=== PATIENT | female | born 1995 ===

== ENCOUNTER 2017-01-18 16:18 | Emergency (ER) | payer OTHER ==
[2017-01-18 16:34] VITALS: BP 125/78
--- NOTE | 2017-01-18 17:04 | ED ---
Psychiatric Complaint - HPI Summary HPI Summary: 22F presents with ability to sleep. She has history of depression and states over the past week the thought have increased in. She denies any SI/HI. She denies any drug or ETOH use. She denies any history of self harm. She states she wants to mental health exam and some sleep. She takes prozac but keeps forgetting to take it. She has family history of depression. - History Of Current Complaint Chief Complaint: EDMentalHealth Time Seen by Provider: 01/18/17 16:36 PMH/Surg Hx/FS Hx/Imm Hx Endocrine/Hematology History: Denies: Hx Anticoagulant Therapy Cardiovascular History: Denies: Hx Hypertension Psychiatric History: Reports: Hx Depression Infectious Disease History: No Infectious Disease History: Denies: Traveled Outside the [place] in Last 30 Days - Family History Known Family History: Positive: Other - depression - Social History Alcohol Use: None Substance Use Type: Reports: None Smoking Status (MU): Never Smoked Tobacco Review of Systems Negative: Fever Negative: Chest Pain Negative: Shortness Of Breath Positive: Depressed, Other - tired All Other Systems Reviewed And Are Negative: Yes Physical Exam Triage Information Reviewed: Yes Vital Signs On Initial Exam: Initial Vitals Temp Pulse Resp BP Pulse Ox 98.0 F 69 16 125/78 98 01/18/17 16:28 01/18/17 16:28 01/18/17 16:28 01/18/17 16:28 01/18/17 16:28 Vital Signs Reviewed: Yes Appearance: Positive: Well-Appearing Skin: Positive: Warm, Dry Head/Face: Positive: Normal Head/Face Inspection Eyes: Positive: Normal, Conjunctiva Clear Respiratory/Lung Sounds: Positive: Clear to Auscultation, Breath Sounds Present Cardiovascular: Positive: Normal, RRR Abdomen Description: Positive: Nontender, Soft Bowel Sounds: Positive: Present Musculoskeletal: Positive: Normal Neurological: Positive: Normal Psychiatric: Positive: Other - tired Diagnostics - Vital Signs Vital Signs Temp Pulse Resp BP Pulse Ox 01/18/17 16:28 98.0 F 69 16 125/78 98 - Laboratory Lab Statement: Any lab studies that have been ordered have been reviewed, and results considered in the medical decision making process. Course/Dx - Course Course Of Treatment: 22F presents with ability to sleep. She has history of depression and states over the past week the thought have increased in. She denies any SI/HI. She denies any drug or ETOH use. She denies any history of self harm. She states she wants to mental health exam and some sleep. She takes prozac but keeps forgetting to take it. She has family history of depression. appears tired. normal PE. medically clear for MHE. signed out to Gayatri GARDNER pending MHE. - Differential Dx/Clinical Impression Differential Diagnosis/HQI/PQRI: Positive: Anxiety, Depression, Suicidal Ideation Provider Diagnosis: Depression Discharge - Discharge Plan Condition: Stable Disposition: OTHER Discharge Disposition Comment: signed out to Gayatri GARDNER pending MHE
[2017-01-18 17:57] LABS: Urine Bilirubin Negative (Negative); Urine Glucose Negative (Negative); Urine Nitrite Negative (Negative)
[2017-01-18 18:13] LABS: Benzodiazepine Urine Screen None Detected (None Detect)
[2017-01-18 19:42] LABS: Hematocrit 40 % (35-47); Hemoglobin 13.6 g/dl (12.0-16.0); Mean Corpuscular HGB Conc 34 g/dl (31-36); Mean Corpuscular Hemoglobin 32 pg (27-31); Mean Corpuscular Volume 93 fL (80-97); Mean Platelet Volume 9 um3 (7.4-10.4); Red Blood Count 4.33 10^6/ul (4.0-5.4); Red Cell Distribution Width 13 % (10.5-15); White Blood Count 7.5 10^3/ul (3.5-10.8)
[2017-01-18 19:56] LABS: ALT 21 U/L (7-52); AST 59 U/L (13-39); Alkaline Phosphatase 34 U/L (34-104); Anion Gap 9 mmol/L (2-11); Blood Urea Nitrogen 8 mg/dL (6-24); CO2 Carbon Dioxide 25 mmol/L (22-32); Calcium 9.6 mg/dL (8.6-10.3); Chloride 99 mmol/L (101-111); EGFR African American 127.1 (>60); EGFR Non-African American 98.8 (>60); Globulin 3.1 g/dL (2-4); Glucose 95 mg/dL (70-100); Potassium 3.7 mmol/L (3.5-5.0); Sodium 133 mmol/L (133-145); Total Protein 8.1 g/dL (6.4-8.9)
[2017-01-18 20:11] LABS: Acetaminophen < 15 mcg/mL; Alcohol < 10 mg/dL (<10); Salicylate < 2.50 mg/dL (<30)
[2017-01-18 20:26] LABS: TSH (Thyroid Stimulating Horm) 2.09 mcIU/mL (0.34-5.60)
[2017-01-18] MEDS ORDERED: diPHENhydraMINE PO* 25 MG PO ONE (22:53)
--- NOTE | 2017-01-18 23:13 | PN ---
Progress Note - Progress Note Date of Service: 01/18/17 SOAP: Subjective: [Patient was a sign out from Nuvia Wolfe at shift change pending psych eval.] Objective: [CTA, RRR no complaints, normal physical exam, normal labs. ] Assessment: [insomnia, anxiety ] Plan: [after psych eval was determined by Dr Berger at 11:00pm that patient will be discharged home with close out patient follow up. Recommended benadryl to help with insomnia, given at discharge. No other concerns at this time. Agree with discharge plan. Diagnosis: anxiety, insomnia Disposition: stable Discharge to home ]
== END 2017-01-18 23:15 ==
LOC: ED 16:18
DX: F32.9 Major depressive disorder, single episode, unspecified (principal); F41.9 Anxiety disorder, unspecified; G47.00 Insomnia, unspecified
CPT/HCPCS: 36415; 80053; 80307; 80320; 80329; 81003; 84443; 85025; 99283; A9270-GY; G0480

== ENCOUNTER 2017-02-11 08:58 | Emergency (ER) | payer OTHER ==
[2017-02-11 09:39] LABS: ABS Basophils 0.1 10^3/ul (0-0.2); ABS Eosinophils 0 10^3/ul (0-0.6); ABS Lymphocytes 1.7 10^3/ul (1.0-4.8); ABS Monocytes 0.3 10^3/ul (0-0.8); ABS Neutrophils 5.3 10^3/ul (1.5-7.7); ABS Nucleated RBC 0 10^3/ul; Eosinophil % 0.2 % (0-6); Hematocrit 40 % (35-47); Hemoglobin 13.8 g/dl (12.0-16.0); Lymphocyte % 22.9 % (25-47); Mean Corpuscular HGB Conc 34 g/dl (31-36); Mean Corpuscular Hemoglobin 32 pg (27-31); Mean Corpuscular Volume 93 fL (80-97); Mean Platelet Volume 9 um3 (7.4-10.4); Nucleated Red Blood Cells % 0; Platelet Count 205 10^3/ul (150-450); Red Blood Count 4.29 10^6/ul (4.0-5.4); Red Cell Distribution Width 13 % (10.5-15); White Blood Count 7.4 10^3/ul (3.5-10.8)
[2017-02-11 09:59] LABS: EGFR Non-African American 100.4 (>60)
[2017-02-11 10:21] LABS: Urine Appearance Clear; Urine Blood 3+ (Negative); Urine Color Yellow; Urine Ketones 1+ (Negative); Urine Protein Negative (Negative); Urine Urobilinogen Negative (Negative)
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
[2017-02-11] MEDS ORDERED: diPHENhydraMINE PO* 50 MG PO ONE (12:25)
[2017-02-11] MEDS ORDERED: diPHENhydraMINE PO* 50 MG ONE (12:30)
[2017-02-11 13:27] VITALS: BP 110/78
== END 2017-02-11 13:27 | disposition home or self-care (01) ==
LOC: ED 08:58
DX: F43.20 Adjustment disorder, unspecified (principal); F41.9 Anxiety disorder, unspecified; F32.9 Major depressive disorder, single episode, unspecified
CPT/HCPCS: 36415; 80053; 80307; 80320; 80329; 81003; 81015; 82550; 83605; 84443; 84702; 85025; 87086; 99283; A9270-GY; G0480

== ENCOUNTER 2017-02-13 05:55 | Inpatient (IN) | payer OTHER ==
[2017-02-13] MEDS ORDERED: LORazepam INJ* 2 MG/ML 1 ML VIAL IM ONE (06:38)
[2017-02-13] MEDS ORDERED: Haloperidol INJ IV/IM* 5 MG/ML AMP IM ONE (06:38)
[2017-02-13] MEDS ORDERED: diPHENhydraMINE IV* 50 MG/ML 1 ml VIAL (BENADRYL) IM ONE (06:39)
[2017-02-13 06:41] LABS: ABS Basophils 0 10^3/ul (0-0.2); ABS Eosinophils 0 10^3/ul (0-0.6); ABS Lymphocytes 2.3 10^3/ul (1.0-4.8); ABS Monocytes 0.6 10^3/ul (0-0.8); ABS Neutrophils 7.9 10^3/ul (1.5-7.7); ABS Nucleated RBC 0.01 10^3/ul; Eosinophil % 0.2 % (0-6); Hematocrit 38 % (35-47); Hemoglobin 13.2 g/dl (12.0-16.0); Lymphocyte % 21.2 % (25-47); Mean Corpuscular HGB Conc 35 g/dl (31-36); Mean Corpuscular Hemoglobin 32 pg (27-31); Mean Corpuscular Volume 93 fL (80-97); Mean Platelet Volume 10 um3 (7.4-10.4); Nucleated Red Blood Cells % 0; Platelet Count 215 10^3/ul (150-450); Red Blood Count 4.09 10^6/ul (4.0-5.4); Red Cell Distribution Width 13 % (10.5-15); White Blood Count 10.9 10^3/ul (3.5-10.8)
[2017-02-13 06:58] LABS: EGFR Non-African American 105.4 (>60)
[2017-02-13] MEDS ORDERED: Al Hydrox/Mg Hydrox/Simet LIQ* 30 ML UDC PO PRN (10:59)
[2017-02-13] MEDS ORDERED: Acetaminophen TAB* 325 MG PO PRN (10:59)
[2017-02-13 12:36] LABS: Urine Appearance Clear; Urine Blood 3+ (Negative); Urine Color Yellow; Urine Ketones 1+ (Negative); Urine Protein Negative (Negative); Urine Specific Gravity 1.005 (1.010-1.030); Urine Urobilinogen Negative (Negative)
[2017-02-13] MEDS ORDERED: Benztropine TAB* 1 MG ONE (14:19)
[2017-02-13] MEDS ORDERED: Haloperidol TAB* 2 MG ONE (14:19)
[2017-02-13] MEDS ORDERED: LORazepam TAB(*) 1 MG ONE (14:21)
[2017-02-13] MEDS ORDERED: LORazepam TAB(*) 1 MG PO ONE (15:00)
[2017-02-13] MEDS ORDERED: Benztropine TAB* 1 MG PO ONE (15:00)
[2017-02-13] MEDS ORDERED: Haloperidol TAB* 2 MG PO ONE (15:00)
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
[2017-02-13] MEDS ORDERED: traZODone TAB* 50 MG TAB PO PRN (19:05)
[2017-02-13] MEDS: Benztropine TAB* 1 MG PO SCH (20:34)
[2017-02-13] MEDS: LORazepam TAB(*) 1 MG PO SCH (20:34)
[2017-02-14] MEDS: Vitamin THERAPEUTIC TAB PO SCH (09:00)
[2017-02-14] MEDS: LORazepam TAB(*) 0.5 MG PO SCH ×2 (09:00→16:28)
[2017-02-14] MEDS: Benztropine TAB* 1 MG PO SCH ×2 (09:00→21:31)
[2017-02-14] MEDS ORDERED: FLUoxetine CAP* 10 MG PO SCH (09:00)
[2017-02-14 09:55] LABS: ABS Basophils 0.1 10^3/ul (0-0.2); ABS Eosinophils 0.1 10^3/ul (0-0.6); ABS Lymphocytes 1.7 10^3/ul (1.0-4.8); ABS Monocytes 0.5 10^3/ul (0-0.8); ABS Neutrophils 5.2 10^3/ul (1.5-7.7); ABS Nucleated RBC 0 10^3/ul; Eosinophil % 1.1 % (0-6); Hematocrit 39 % (35-47); Hemoglobin 13.3 g/dl (12.0-16.0); Lymphocyte % 22.4 % (25-47); Mean Corpuscular HGB Conc 34 g/dl (31-36); Mean Corpuscular Hemoglobin 32 pg (27-31); Mean Corpuscular Volume 94 fL (80-97); Mean Platelet Volume 9 um3 (7.4-10.4); Nucleated Red Blood Cells % 0; Platelet Count 211 10^3/ul (150-450); Red Blood Count 4.18 10^6/ul (4.0-5.4); Red Cell Distribution Width 13 % (10.5-15); White Blood Count 7.6 10^3/ul (3.5-10.8)
[2017-02-14 10:28] LABS: EGFR Non-African American 79.6 (>60)
[2017-02-14] MEDS: LORazepam TAB(*) 0.5 MG PO PRN (16:28)
[2017-02-14] MEDS: Haloperidol TAB* 1 MG PO PRN (16:28)
--- NOTE | 2017-02-14 16:58 | PN ---
Subjective - Subjective Date of Service: 02/14/17 Service Type: [id number] Hosp care 15 min low complexity Subjective: Samantha was found crying aloud in the hallway for no apparent reason. When asked why she was crying she couldn't come up with any reason. Says her mom put her in the hospital. She was extremely guarded, jumping from a topic if she felt uncomfortable talking about. Denied any psychiatric problems while visibly sad, tearful and paranoid. Didn't want to go for MRI because of fear of memory loss and so on. Over all an unreliable historian. Objective - Appearance Appearance: Healthy Appearing Dysmorphic Features: No Hygiene: Normal Grooming: Well Kept - Behavior Psychomotor Activities: Normal Exhibits Abnormal Movement: No - Attitude and Relatedness Attitude and Relatedness: Minimally Cooperative Eye Contact: Fair - Speech Quality: Unpressured Latencies: Normal Quantity: Terse - Mood Patient's Decription of Mood: "Fine" - Affect Observed Affect: Depressed - Thought Process Patient's Thought Process: Coherent, Disorganized Thought Content: No Passive Wish, No Suicidal Planning, No Homicidal Ideation, No Paranoid Ideation - Sensorium Experiencing Hallucinations: No, Sensorium is Clear Type of Hallucinations: Visual: No, Auditory: No, Command: No - Level of Consciousness Level of Consciousness: Alert Orientation: Yes Intact, Yes Orientated to Time, Yes Orientated to Place, Yes Orientated to Person - Impulse Control Impulse Control: Tenuous - Insight and Judgement Insight and Judgement: Impaired - Group Participation Particating in Group Activities: No - Medication Management Medication Management Adherence: Yes Assessment - Assessment Merits Inpatient Hospitalization: For Stabilization, Diagnosis Determination, For Ongoing Evaluation, For Discharge Planning Inpatient DSM-IV Dx: Unspecified psychosis Clinical Impression: 22 y/o female appears to be experiencing a psychotic episode ( may be first break psychosis ). Plan - Plan Treatment Plan: Name: MANDY SAMAYOA Birthdate: 1995 [id number] Continued Medication Management: Continue Outpt Medication Medications: Current Medications Acetaminophen (Tylenol Tab*) 650 mg PO Q4H PRN PRN Reason: for pain; or Temp >101 F Last Admin: 02/13/17 14:49 Dose: 650 mg Al Hydrox/Mg Hydrox/Simethicone (Maalox Plus*) 30 ml PO Q4H PRN PRN Reason: INDIGESTION Benztropine Mesylate (Cogentin Tab*) 0.5 mg PO 0900,2100 RAINE Last Admin: 02/14/17 09:00 Dose: 0.5 mg Haloperidol (Haldol Tab*) 2 mg PO BEDTIME RAINE Haloperidol (Haldol Tab*) 1 mg PO Q4H PRN PRN Reason: agitation/psychosis Last Admin: 02/14/17 16:28 Dose: 1 mg Lorazepam (Ativan Tab(*)) 0.5 mg PO 0900,1600 RAINE Last Admin: 02/14/17 16:28 Dose: 0.5 mg Lorazepam (Ativan Tab(*)) 1 mg PO BEDTIME RAINE Last Admin: 02/13/17 20:34 Dose: 1 mg Lorazepam (Ativan Tab(*)) 0.5 mg PO Q4H PRN PRN Reason: agitation/psychosis Last Admin: 02/14/17 16:28 Dose: 0.5 mg Multivitamins (Theragran Tab*) 1 tab PO DAILY RAINE Last Admin: 02/14/17 09:00 Dose: 1 tab Trazodone HCl (Desyrel Tab*) 50 mg PO BEDTIME PRN PRN Reason: INSOMNIA Last Admin: 02/13/17 20:34 Dose: 50 mg - Discharge Plan Discharge Plan: Outpatient Follow Up Outpatient Program: Counseling/Psych Services at [place]
[2017-02-14] MEDS: Haloperidol TAB* 2 MG PO SCH (21:31)
[2017-02-14] MEDS: LORazepam TAB(*) 1 MG PO SCH (21:32)
[2017-02-15] MEDS: LORazepam TAB(*) 0.5 MG PO SCH ×2 (10:15→16:26)
[2017-02-15] MEDS: Vitamin THERAPEUTIC TAB PO SCH (10:15)
[2017-02-15] MEDS: Benztropine TAB* 1 MG PO SCH ×2 (10:15→21:05)
[2017-02-15] MEDS: LORazepam TAB(*) 0.5 MG PO PRN (18:49)
[2017-02-15] MEDS: Haloperidol TAB* 1 MG PO PRN (18:49)
[2017-02-15] MEDS: Haloperidol TAB* 2 MG PO SCH (21:03)
[2017-02-15] MEDS: LORazepam TAB(*) 1 MG PO SCH (21:04)
[2017-02-16] MEDS: Benztropine TAB* 1 MG PO SCH ×2 (10:35→20:23)
[2017-02-16] MEDS: LORazepam TAB(*) 0.5 MG PO SCH ×2 (10:36→16:06)
[2017-02-16] MEDS: Vitamin THERAPEUTIC TAB PO SCH (10:36)
--- NOTE | 2017-02-16 14:36 | PN ---
Subjective - Subjective Date of Service: 02/16/17 Service Type: [id number] Hosp care 15 min low complexity Subjective: Mandy was in bed her head covered and unwilling to speak. Finally with the help of a staff she barely uncovered her head and said no parents and covered her face again. Her mother was here to visit at that time. She doesn't speak or understand Kyrgyz making it harder to obtain any collaterals from her. Objective - Appearance Appearance: Thin Framed Dysmorphic Features: No Hygiene: Mal-odorous Grooming: Disheveled - Behavior Psychomotor Activities: Abnormal-Decreased Exhibits Abnormal Movement: No - Attitude and Relatedness Attitude and Relatedness: Superficially Cooperative Eye Contact: Poor - Speech Quality: Unpressured Latencies: Long Quantity: Terse - Mood Patient's Decription of Mood: "Irritable" - Affect Observed Affect: Depressed - Thought Process Patient's Thought Process: Disorganized, Impoverished Thought Content: No Passive Wish, No Suicidal Planning, No Homicidal Ideation, No Paranoid Ideation - Sensorium Experiencing Hallucinations: No, Sensorium is Clear - Level of Consciousness Level of Consciousness: Alert Orientation: Yes Intact, Yes Orientated to Time, Yes Orientated to Place, Yes Orientated to Person - Impulse Control Impulse Control: Tenuous - Insight and Judgement Insight and Judgement: Impaired - Group Participation Particating in Group Activities: No - Medication Management Medication Management Adherence: Yes Assessment - Assessment Merits Inpatient Hospitalization: For Immediate Safety, For Stabilization, For Ongoing Evaluation, Pending Safe DC Plan Inpatient DSM-IV Dx: Unspecified psychosis Clinical Impression: 22 y/o female appears to be experiencing a psychotic episode ( may be first break psychosis ). Plan - Plan Treatment Plan: Name: MANDY SAMAYOA Birthdate: 1995 [id number] Continued Medication Management: Continue Outpt Medication Medications: Current Medications Acetaminophen (Tylenol Tab*) 650 mg PO Q4H PRN PRN Reason: for pain; or Temp >101 F Last Admin: 02/13/17 14:49 Dose: 650 mg Al Hydrox/Mg Hydrox/Simethicone (Maalox Plus*) 30 ml PO Q4H PRN PRN Reason: INDIGESTION Benztropine Mesylate (Cogentin Tab*) 0.5 mg PO 0900,2100 RAINE Last Admin: 02/16/17 10:35 Dose: 0.5 mg Haloperidol (Haldol Tab*) 2 mg PO BEDTIME RAINE Last Admin: 02/15/17 21:03 Dose: 2 mg Haloperidol (Haldol Tab*) 1 mg PO Q4H PRN PRN Reason: agitation/psychosis Last Admin: 02/15/17 18:49 Dose: 1 mg Lorazepam (Ativan Tab(*)) 0.5 mg PO 0900,1600 RAINE Last Admin: 02/16/17 10:36 Dose: 0.5 mg Lorazepam (Ativan Tab(*)) 1 mg PO BEDTIME RAINE Last Admin: 02/15/17 21:04 Dose: 1 mg Lorazepam (Ativan Tab(*)) 0.5 mg PO Q4H PRN PRN Reason: agitation/psychosis Last Admin: 02/15/17 18:49 Dose: 0.5 mg Multivitamins (Theragran Tab*) 1 tab PO DAILY [facility] Last Admin: 02/16/17 10:36 Dose: 1 tab Trazodone HCl (Desyrel Tab*) 50 mg PO BEDTIME PRN PRN Reason: INSOMNIA Last Admin: 02/13/17 20:34 Dose: 50 mg - Discharge Plan Discharge Plan: Outpatient Follow Up Outpatient Program: Counseling/Psych Services at [place]
[2017-02-16] MEDS: LORazepam TAB(*) 1 MG PO SCH (20:23)
[2017-02-16] MEDS: Haloperidol TAB* 2 MG PO SCH (20:23)
[2017-02-17] MEDS: Benztropine TAB* 1 MG PO SCH ×2 (09:56→21:48)
[2017-02-17] MEDS: LORazepam TAB(*) 0.5 MG PO SCH ×2 (09:57→16:31)
[2017-02-17] MEDS: Vitamin THERAPEUTIC TAB PO SCH (09:57)
--- NOTE | 2017-02-17 16:24 | RAD ---
Indication: Altered mental status. New onset psychosis. Comparison: No relevant prior exams available on the [facility] PACS for comparison. Technique: [place] 1.5 Lois [id number] with GEM suite. MRI brain without contrast. Report: Diffusion series is negative for acute or subacute ischemia. Susceptibility series is negative for stigmata of hemosiderin deposition to indicate previous hemorrhage. Unremarkable cerebral sulci, ventricles, and basal cisterns. Normal patterns of signal intensity throughout the cerebrum and posterior fossa. No intra or extra-axial lesion or fluid collection evident. Preserved major intracranial flow-voids. Unremarkable orbital contents. Clear visualized paranasal sinuses and mastoid air spaces. Unremarkable calvarium and skull base. Unremarkable scalp. IMPRESSION: Negative unenhanced MRI of the brain.
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
[2017-02-17] MEDS ORDERED: ARIPiprazole TAB* 5 MG PO ONE (17:17)
[2017-02-17] MEDS ORDERED: Lithium Carbonate ER* 450 MG TAB.ER PO ONE ×2 (17:19→21:00)
[2017-02-17] MEDS: Haloperidol TAB* 2 MG PO SCH (21:47)
[2017-02-17] MEDS: LORazepam TAB(*) 1 MG PO SCH (21:47)
[2017-02-18] MEDS ORDERED: Lithium Carbonate ER* 450 MG TAB.ER PO ONE (09:00)
[2017-02-18] MEDS ORDERED: ARIPiprazole TAB* 5 MG PO ONE (09:00)
[2017-02-18] MEDS ORDERED: ARIPiprazole TAB* 5 MG PO SCH (09:00)
[2017-02-18] MEDS: Benztropine TAB* 1 MG PO SCH ×2 (09:27→20:31)
[2017-02-18] MEDS: LORazepam TAB(*) 0.5 MG PO SCH ×2 (09:28→17:16)
[2017-02-18] MEDS: Vitamin THERAPEUTIC TAB PO SCH (09:28)
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
[2017-02-18] MEDS: LORazepam TAB(*) 1 MG PO SCH (20:31)
[2017-02-18] MEDS: Haloperidol TAB* 2 MG PO SCH (20:31)
[2017-02-18] MEDS: Lithium Carbonate ER* 450 MG TAB.ER PO SCH (20:32)
[2017-02-19] MEDS: Benztropine TAB* 1 MG PO SCH ×2 (08:42→21:13)
[2017-02-19] MEDS: Vitamin THERAPEUTIC TAB PO SCH (08:42)
[2017-02-19] MEDS: ARIPiprazole TAB* 15 MG PO SCH (08:42)
[2017-02-19] MEDS: Lithium Carbonate ER* 450 MG TAB.ER PO SCH ×2 (08:46→21:12)
[2017-02-19] MEDS: LORazepam TAB(*) 0.5 MG PO SCH ×2 (08:46→16:00)
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
[2017-02-19] MEDS: LORazepam TAB(*) 1 MG PO SCH (21:12)
[2017-02-19] MEDS: QUEtiapine TAB* 25 MG PO SCH (21:12)
[2017-02-20] MEDS: Vitamin THERAPEUTIC TAB PO SCH (09:27)
[2017-02-20] MEDS: Benztropine TAB* 1 MG PO SCH ×2 (09:27→20:22)
[2017-02-20] MEDS: Lithium Carbonate ER* 450 MG TAB.ER PO SCH ×2 (09:27→20:21)
[2017-02-20] MEDS: ARIPiprazole TAB* 15 MG PO SCH (09:27)
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
--- NOTE | 2017-02-20 11:25 | PN ---
MHU: Group Therapy Note - Service Type Service Type: 51525 Group Psychotherapy - Cognitive Behavioral Group Therapy ( CBT):Patient was attentive and participatory in CBT programming this morning, and remained in good behavioral control. Patient expressed positive insights regarding relevant treatment interventions and goals.
[2017-02-20] MEDS: QUEtiapine TAB* 25 MG PO SCH (20:21)
[2017-02-20] MEDS: LORazepam TAB(*) 1 MG PO SCH (20:22)
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
[2017-02-21] MEDS: Lithium Carbonate ER* 450 MG TAB.ER PO SCH ×2 (07:59→21:34)
[2017-02-21] MEDS: ARIPiprazole TAB* 20 MG PO SCH (07:59)
[2017-02-21] MEDS: Benztropine TAB* 1 MG PO SCH ×2 (08:00→21:35)
[2017-02-21] MEDS: Vitamin THERAPEUTIC TAB PO SCH (08:00)
[2017-02-21] MEDS: QUEtiapine TAB* 25 MG PO SCH (21:36)
[2017-02-21] MEDS: LORazepam TAB(*) 1 MG PO SCH (21:36)
[2017-02-22] MEDS: Benztropine TAB* 1 MG PO SCH ×2 (09:06→21:05)
[2017-02-22] MEDS: ARIPiprazole TAB* 20 MG PO SCH (09:06)
[2017-02-22] MEDS: Vitamin THERAPEUTIC TAB PO SCH (09:06)
[2017-02-22] MEDS: Lithium Carbonate ER* 450 MG TAB.ER PO SCH ×2 (09:07→21:04)
[2017-02-22] MEDS: QUEtiapine TAB* 25 MG PO SCH (21:06)
[2017-02-22] MEDS: LORazepam TAB(*) 1 MG PO SCH (21:06)
[2017-02-23] MEDS: Vitamin THERAPEUTIC TAB PO SCH (08:34)
[2017-02-23] MEDS: Benztropine TAB* 1 MG PO SCH ×2 (08:34→21:23)
[2017-02-23] MEDS: ARIPiprazole TAB* 20 MG PO SCH (08:34)
[2017-02-23] MEDS: Lithium Carbonate ER* 450 MG TAB.ER PO SCH ×2 (10:16→21:21)
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
[2017-02-23] MEDS: LORazepam TAB(*) 1 MG PO SCH (21:20)
[2017-02-23] MEDS: QUEtiapine TAB* 25 MG PO SCH (21:24)
[2017-02-24] MEDS: Benztropine TAB* 1 MG PO SCH ×2 (10:09→20:19)
[2017-02-24] MEDS: ARIPiprazole TAB* 20 MG PO SCH (10:09)
[2017-02-24] MEDS: Vitamin THERAPEUTIC TAB PO SCH (10:09)
[2017-02-24] MEDS: Lithium Carbonate ER* 450 MG TAB.ER PO SCH ×2 (10:11→20:21)
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
--- NOTE | 2017-02-24 13:36 | PN ---
MHU: Group Therapy Note - Service Type Service Type: 65730 Group Psychotherapy - Cognitive Behavioral Group Therapy ( CBT):Patient was attentive and participatory in CBT programming this morning, and remained in good behavioral control. Patient expressed positive insights regarding relevant treatment interventions and goals.
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
[2017-02-24] MEDS: LORazepam TAB(*) 1 MG PO SCH (20:19)
[2017-02-24] MEDS: QUEtiapine TAB* 25 MG PO SCH (20:19)
[2017-02-25] MEDS: Vitamin THERAPEUTIC TAB PO SCH (08:54)
[2017-02-25] MEDS: ARIPiprazole TAB* 20 MG PO SCH (08:54)
[2017-02-25] MEDS: Lithium Carbonate ER* 450 MG TAB.ER PO SCH ×2 (08:55→20:10)
[2017-02-25] MEDS: Benztropine TAB* 1 MG PO SCH ×2 (08:55→20:07)
[2017-02-25] MEDS: QUEtiapine TAB* 25 MG PO SCH (20:08)
[2017-02-25] MEDS: LORazepam TAB(*) 1 MG PO SCH (20:08)
[2017-02-26] MEDS: QUEtiapine TAB* 25 MG PO SCH ×2 (05:30→20:42)
[2017-02-26] MEDS: ARIPiprazole TAB* 20 MG PO SCH (10:02)
[2017-02-26] MEDS: Vitamin THERAPEUTIC TAB PO SCH (10:02)
[2017-02-26] MEDS: Benztropine TAB* 1 MG PO SCH ×2 (10:03→20:43)
[2017-02-26] MEDS: Lithium Carbonate ER* 450 MG TAB.ER PO SCH ×2 (10:04→20:45)
[2017-02-26] MEDS ORDERED: Docusate CAP* 100 MG PO PRN (13:28)
[2017-02-26] MEDS ORDERED: Docusate CAP* 100 MG PO ONE (13:28)
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
[2017-02-26] MEDS: LORazepam TAB(*) 1 MG PO SCH (20:42)
[2017-02-27] MEDS: ARIPiprazole TAB* 20 MG PO SCH (09:06)
[2017-02-27] MEDS: Benztropine TAB* 1 MG PO SCH ×2 (09:06→20:12)
[2017-02-27] MEDS: Vitamin THERAPEUTIC TAB PO SCH (09:06)
[2017-02-27] MEDS: Lithium Carbonate ER* 450 MG TAB.ER PO SCH ×2 (09:09→20:09)
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
[2017-02-27] MEDS: QUEtiapine TAB* 25 MG PO SCH (20:11)
[2017-02-27] MEDS: LORazepam TAB(*) 1 MG PO SCH (20:12)
[2017-02-28] MEDS: Benztropine TAB* 1 MG PO SCH ×2 (09:42→20:14)
[2017-02-28] MEDS: ARIPiprazole TAB* 20 MG PO SCH (09:42)
[2017-02-28] MEDS: Vitamin THERAPEUTIC TAB PO SCH (09:42)
[2017-02-28] MEDS: Lithium Carbonate ER* 450 MG TAB.ER PO SCH ×2 (09:43→20:13)
[2017-02-28] MEDS: QUEtiapine TAB* 25 MG PO SCH (20:13)
[2017-02-28] MEDS: LORazepam TAB(*) 1 MG PO SCH (20:14)
[2017-03-01] MEDS: ARIPiprazole TAB* 20 MG PO SCH (09:30)
[2017-03-01] MEDS: Vitamin THERAPEUTIC TAB PO SCH (09:30)
[2017-03-01] MEDS: Lithium Carbonate ER* 450 MG TAB.ER PO SCH ×2 (09:31→20:32)
[2017-03-01] MEDS: Benztropine TAB* 1 MG PO SCH ×2 (09:31→20:24)
[2017-03-01] MEDS: LORazepam TAB(*) 1 MG PO SCH (20:25)
[2017-03-01] MEDS: QUEtiapine TAB* 25 MG PO SCH (20:25)
[2017-03-02] MEDS: Vitamin THERAPEUTIC TAB PO SCH (08:33)
[2017-03-02] MEDS: Benztropine TAB* 1 MG PO SCH (08:33)
[2017-03-02] MEDS: ARIPiprazole TAB* 20 MG PO SCH (08:33)
[2017-03-02] MEDS: Lithium Carbonate ER* 450 MG TAB.ER PO SCH ×2 (08:33→21:03)
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
[2017-03-02] MEDS: QUEtiapine TAB* 25 MG PO SCH (21:03)
[2017-03-02] MEDS: LORazepam TAB(*) 1 MG PO SCH (21:03)
[2017-03-03 07:55] VITALS: BP 111/74
[2017-03-03] MEDS: Lithium Carbonate ER* 450 MG TAB.ER PO SCH (08:34)
[2017-03-03] MEDS: Vitamin THERAPEUTIC TAB PO SCH (08:35)
[2017-03-03] MEDS: ARIPiprazole TAB* 20 MG PO SCH (08:36)
--- NOTE | 2017-03-03 11:33 | PN ---
MHU: Group Therapy Note - Service Type Service Type: 94322 Group Psychotherapy - Cognitive Behavioral Group Therapy ( CBT):Patient was attentive and participatory in CBT programming this morning, and remained in good behavioral control. Patient expressed positive insights regarding relevant treatment interventions and goals.
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
== END 2017-03-03 14:45 | disposition home or self-care (01) | DRG 885 ==
LOC: ED 05:55 → BSU 15:55
PROVIDERS: ADMIT Psychiatry & Neurology Psychiatry; ATTEND Psychiatry & Neurology Psychiatry
PROC: GZHZZZZ Group Psychotherapy (ICD-10-PCS; principal; 2017-02-20)
DX: F31.2 Bipolar disorder, current episode manic severe with psychotic features (principal); R45.851 Suicidal ideations; R45.850 Homicidal ideations; F43.10 Post-traumatic stress disorder, unspecified; Z62.820 Parent-biological child conflict; F41.9 Anxiety disorder, unspecified; F90.9 Attention-deficit hyperactivity disorder, unspecified type; R50.9 Fever, unspecified; G47.00 Insomnia, unspecified; Z82.49 Family history of ischemic heart disease and other diseases of the circulatory system; Z81.8 Family history of other mental and behavioral disorders; Z91.410 Personal history of adult physical and sexual abuse
CPT/HCPCS: 36415; 70551; 80053; 80061; 80178; 80307; 80320; 80329; 81003; 81015; 82607; 82746; 83036; 84443; 84702; 85025; 90853; 96102; 99222; 99231; 99232; 99233; 99238; 99284; A9270-GY; G0480

== ENCOUNTER 2017-03-09 16:28 | Emergency (ER) | payer OTHER ==
[2017-03-09] MEDS ORDERED: NS 0.9% 1000 ML* 1,000 ML IV ONE (19:51)
[2017-03-09] MEDS ORDERED: Benztropine TAB* 1 MG PO ONE (19:58)
[2017-03-09] MEDS ORDERED: diPHENhydraMINE IV* 50 MG/ML 1 ml VIAL (BENADRYL) IV ONE (19:59)
[2017-03-09 20:26] LABS: ABS Basophils 0.1 10^3/ul (0-0.2); ABS Eosinophils 0.3 10^3/ul (0-0.6); ABS Lymphocytes 2.7 10^3/ul (1.0-4.8); ABS Monocytes 0.9 10^3/ul (0-0.8); ABS Neutrophils 9.8 10^3/ul (1.5-7.7); ABS Nucleated RBC 0 10^3/ul; Eosinophil % 2.2 % (0-6); Hematocrit 40 % (35-47); Hemoglobin 13.5 g/dl (12.0-16.0); Lymphocyte % 19.8 % (25-47); Mean Corpuscular HGB Conc 33 g/dl (31-36); Mean Corpuscular Hemoglobin 32 pg (27-31); Mean Corpuscular Volume 94 fL (80-97); Mean Platelet Volume 8 um3 (7.4-10.4); Nucleated Red Blood Cells % 0; Platelet Count 272 10^3/ul (150-450); Red Blood Count 4.28 10^6/ul (4.0-5.4); Red Cell Distribution Width 13 % (10.5-15); White Blood Count 13.8 10^3/ul (3.5-10.8)
[2017-03-09 20:33] LABS: EGFR Non-African American 105.4 (>60)
[2017-03-09 21:54] VITALS: BP 114/74
--- NOTE | 2017-03-10 19:36 | ED ---
Sarah Beltran Edward, scribed for Natalio Arriaga MD on 03/09/17 at 1944 . Complex/Multi-Sys Presentation - HPI Summary HPI Summary: 22 y/o female presents to the ED c/o general weakness starting 5-6 days ago. Pt has had trouble concentrating and c/o intermittent blurred vision. Pt states intermittently she will not be able to see. Associated sx: mild nausea. Pt believes her symptoms may be secondary to [place] side effects. Pt takes 675 mg of [place] 2x a day for 1 month. PMHx bipolar disorder. Pt sent from psychiatrist to the ED today. Pt is also on Abilify. - History Of Current Complaint Chief Complaint: EDGeneral Time Seen by Provider: 03/09/17 19:23 Hx Obtained From: Patient Onset/Duration: Lasting Days Timing: Constant Associated Signs And Symptoms: Positive: Weakness, Nausea - mild, Other - trouble concentrating, blurred vision - Allergies/Home Medications Allergies/Adverse Reactions: Allergies Allergy/AdvReac Type Severity Reaction Status Date / Time No Known Allergies Allergy Verified 02/22/17 08:42 PMH/Surg Hx/FS Hx/Imm Hx Previously Healthy: No Endocrine/Hematology History: Denies: Hx Anticoagulant Therapy, Hx Diabetes, Hx Thyroid Disease Cardiovascular History: Denies: Hx Hypertension, Hx Pacemaker/ICD Respiratory History: Denies: Hx Asthma GI History: Denies: Hx Gastroesophageal Reflux Disease Sensory History: Reports: Hx Contacts or Glasses Denies: Hx Cataracts, Hx Eye Injury, Hx Eye Prosthesis, Hx Legally Blind, Hx Deafness, Hx Hearing Aid Opthamlomology History: Reports: Hx Contacts or Glasses Denies: Hx Cataracts, Hx Eye Injury, Hx Eye Prosthesis, Hx Legally Blind Psychiatric History: Reports: Hx Anxiety, Hx Attention Deficit Hyperactivity Disorder, Hx Depression Denies: Hx Eating Disorder, Hx Panic Disorder, Hx of Violent Episodes Against Others - Surgical History Surgery Procedure, Year, and Place: no surgical hx Infectious Disease History: No Infectious Disease History: Denies: Traveled Outside the [place] in Last 30 Days - Family History Known Family History: Positive: Hypertension, Other - depression Family History: paternal grandmother: tries to get attention by threatening suicide. FHx limited due to level 5 caveat: AMS. - Social History Alcohol Use: None Substance Use Type: Reports: None Smoking Status (MU): Never Smoked Tobacco Review of Systems Constitutional: Negative Positive: Blurred Vision ENT: Negative Cardiovascular: Negative Respiratory: Negative Positive: Nausea Genitourinary: Negative Musculoskeletal: Negative Skin: Negative Neurological: Other - trouble concentrating Positive: Weakness Psychological: Normal All Other Systems Reviewed And Are Negative: Yes Physical Exam - Summary Physical Exam Summary: VITAL SIGNS: Reviewed. GENERAL: Patient is a well-developed and nourished female who is lying comfortable in the stretcher. Patient is not in any acute respiratory distress. HEAD AND FACE: No signs of trauma. No ecchymosis, hematomas or skull depressions. No sinus tenderness. EYES: PERRLA, EOMI x 2, No injected conjunctiva, no nystagmus. EARS: Hearing grossly intact. Ear canals and tympanic membranes are within normal limits. MOUTH: Oropharynx within normal limits. NECK: Supple, trachea is midline, no adenopathy, no JVD, no carotid bruit, no c- spine tenderness, neck with full ROM. CHEST: Symmetric, no tenderness at palpation LUNGS: Clear to auscultation bilaterally. No wheezing or crackles. CVS: Regular rate and rhythm, S1 and S2 present, no murmurs or gallops appreciated. ABDOMEN: Soft, non-tender. No signs of distention. No rebound no guarding, and no masses palpated. Bowel sounds are normal. EXTREMITIES: FROM in all major joints, no edema, no cyanosis or clubbing. NEURO: Alert and oriented x 3. No acute neurological deficits. Speech is normal and follows commands. SKIN: Dry and warm Triage Information Reviewed: Yes Vital Signs On Initial Exam: Initial Vitals Temp Pulse Resp BP Pulse Ox 98.4 F 74 16 108/69 98 03/09/17 16:37 03/09/17 16:37 03/09/17 16:37 03/09/17 16:37 03/09/17 16:37 Vital Signs Reviewed: Yes Diagnostics - Vital Signs Vital Signs Temp Pulse Resp BP Pulse Ox 03/09/17 16:37 98.4 F 74 16 108/69 98 - Laboratory Result Diagrams: 03/09/17 20:10 03/09/17 20:10 Lab Statement: Any lab studies that have been ordered have been reviewed, and results considered in the medical decision making process. Re-Evaluation - Re-Evaluation 1 Re-Evaluation Time: 21:29 Change: Improved Comment: Re-eval pt, discuss lab results Complex Multi-Symp Course/Dx Assessment/Plan: 22 y/o female c/o weakness, blurred vision and trouble concentrating for 5-6 days. Pt sent from psychiatrist. Pt sx which include being restless and involuntarily abnormal movement are the result of extra pyramidal effects from taking Abilify that will be treated with cogentin. Pt given Benadryl and congentin in the ED and feels better. Pt has lithium induced hypothyroidism and she was advised of her test results. She was advised to have a discussion with her psychiatrist over how necessary she feels lithium is. She was also referred to pcp to manage hypothyroidism and to see if the pt needs thyroxin. Pt will be d/c home. - Diagnoses Provider Diagnoses: Extrapyramidal effects, [place] induced hypothyroidism Discharge - Discharge Plan Condition: Stable Disposition: HOME Prescriptions: Benztropine TAB* [Cogentin TAB*] 1 mg PO BID #30 tab Patient Education Materials: Hypothyroidism (ED), Induced Thyroid Disorders (ED ) Referrals: [facility]IAN REFERRAL [Outside] - 4 Days (PLEASE F/U IN 3-5 DAYS TO MANAGE HYPOTHYROIDISM) Additional Instructions: RETURN FOR WORSENING OR RETURN OF SYMPTOMS. DISCUSS WITH PSYCHIATRIST TO MANAGE LITHIUM The documentation as recorded by the Sarah garnett Edward accurately reflects the service I personally performed and the decisions made by me, Natalio Arriaga MD.
== END 2017-03-09 21:53 | disposition home or self-care (01) ==
LOC: ED 16:28
DX: G25.9 Extrapyramidal and movement disorder, unspecified (principal); E03.2 Hypothyroidism due to medicaments and other exogenous substances; R11.0 Nausea; H53.8 Other visual disturbances; F41.9 Anxiety disorder, unspecified; F90.9 Attention-deficit hyperactivity disorder, unspecified type; F32.9 Major depressive disorder, single episode, unspecified
CPT/HCPCS: 36415; 80053; 80178; 82550; 84436; 84439; 84443; 85025; 96374; 99282; A9270-GY; J1200

== ENCOUNTER 2017-03-17 20:27 | Inpatient (IN) | payer OTHER ==
[2017-03-17] MEDS ORDERED: Haloperidol TAB* 5 MG PO ONE (21:41)
[2017-03-17] MEDS ORDERED: diPHENhydraMINE PO* 25 MG PO ONE (21:46)
[2017-03-17 22:13] LABS: ABS Basophils 0.1 10^3/ul (0-0.2); ABS Eosinophils 0.1 10^3/ul (0-0.6); ABS Lymphocytes 2.8 10^3/ul (1.0-4.8); ABS Monocytes 0.9 10^3/ul (0-0.8); ABS Neutrophils 8.1 10^3/ul (1.5-7.7); ABS Nucleated RBC 0 10^3/ul; Eosinophil % 1.2 % (0-6); Hematocrit 38 % (35-47); Hemoglobin 12.7 g/dl (12.0-16.0); Lymphocyte % 23.7 % (25-47); Mean Corpuscular HGB Conc 34 g/dl (31-36); Mean Corpuscular Hemoglobin 32 pg (27-31); Mean Corpuscular Volume 95 fL (80-97); Mean Platelet Volume 8 um3 (7.4-10.4); Nucleated Red Blood Cells % 0; Platelet Count 310 10^3/ul (150-450); Red Cell Distribution Width 13 % (10.5-15); White Blood Count 11.9 10^3/ul (3.5-10.8)
[2017-03-17 22:26] LABS: EGFR Non-African American 90.2 (>60)
[2017-03-17] MEDS ORDERED: diPHENhydraMINE PO* 25 MG ONE (22:40)
[2017-03-17 23:06] LABS: Urine Appearance Clear; Urine Blood 3+ (Negative); Urine Color Yellow; Urine Ketones Negative (Negative); Urine Protein Negative (Negative); Urine Specific Gravity 1.008 (1.010-1.030); Urine Urobilinogen Negative (Negative)
[2017-03-18] MEDS ORDERED: LORazepam INJ* 2 MG/ML 1 ML VIAL ONE ×2 (00:28→22:29)
[2017-03-18] MEDS ORDERED: Haloperidol INJ IV/IM* 5 MG/ML AMP ONE (00:28)
[2017-03-18] MEDS ORDERED: diPHENhydraMINE IV* 50 MG/ML 1 ml VIAL (BENADRYL) ONE (00:30)
[2017-03-18] MEDS ORDERED: Al Hydrox/Mg Hydrox/Simet LIQ* 30 ML UDC PO PRN (03:20)
[2017-03-18] MEDS ORDERED: Docusate CAP* 100 MG PO PRN (03:23)
--- NOTE | 2017-03-18 05:27 | ED ---
Zahra Beltran Thomas, scribed for Nain Schultz on 03/17/17 at 2129 . Psychiatric Complaint - HPI Summary HPI Summary: The patient is a 22 year old female brought in by her family friend with extreme restlessness. The patient is from [place] and recently graduated from [employer]. She is currently staying with her family friend in [place]. The family friend supplies the patients history due to the patients restlessness. The patient has a history of Bipolar disorder and has previously been admitted to [facility] for psychiatric reasons. There are no known triggers for the patients current state. The family friend reports that the patient screamed the whole night last night. The patients medication includes Lorazepam 1 mg, lithium carbonate ER 450 mg, and Abilify 20 mg. The patient has not been taking her medication for the last few days. LEVEL 5 CAVEAT: HPI limited by restless patient - History Of Current Complaint Chief Complaint: EDMentalHealth Time Seen by Provider: 03/17/17 21:00 Hx Obtained From: Other: - Family friend Hx From Patient Unobtainable Due To: Other - Restlessness Hx Last Menstrual Period: present now Onset/Duration: Still Present Timing: Constant Severity Currently: Severe Character: Anxious Aggravating Factor(s): Medication Non-compliance Related History: Positive For: Prior Psychiatric Issues - Allergies/Home Medications Allergies/Adverse Reactions: Allergies Allergy/AdvReac Type Severity Reaction Status Date / Time No Known Allergies Allergy Verified 02/22/17 08:42 PMH/Surg Hx/FS Hx/Imm Hx Endocrine/Hematology History: Denies: Hx Anticoagulant Therapy, Hx Diabetes, Hx Thyroid Disease Cardiovascular History: Denies: Hx Hypertension, Hx Pacemaker/ICD Respiratory History: Denies: Hx Asthma GI History: Denies: Hx Gastroesophageal Reflux Disease Sensory History: Reports: Hx Contacts or Glasses Denies: Hx Cataracts, Hx Eye Injury, Hx Eye Prosthesis, Hx Legally Blind, Hx Deafness, Hx Hearing Aid Opthamlomology History: Reports: Hx Contacts or Glasses Denies: Hx Cataracts, Hx Eye Injury, Hx Eye Prosthesis, Hx Legally Blind Psychiatric History: Reports: Hx Anxiety, Hx Attention Deficit Hyperactivity Disorder, Hx Depression Denies: Hx Eating Disorder, Hx Panic Disorder, Hx of Violent Episodes Against Others - Surgical History Surgery Procedure, Year, and Place: no surgical hx - Immunization History Immunizations Up to Date: Yes Infectious Disease History: No Infectious Disease History: Denies: Traveled Outside the [place] in Last 30 Days - Family History Known Family History: Positive: Hypertension, Other - depression Family History: paternal grandmother: tries to get attention by threatening suicide. FHx limited due to level 5 caveat: AMS. - Social History Occupation: Student Alcohol Use: None Substance Use Type: Reports: None Smoking Status (MU): Never Smoked Tobacco Review of Systems - ROS Summary Review of Systems Summary: LEVEL 5 CAVEAT: ROS limited by restless patient Negative: Fever Positive: Anxious, Other - Restlessness All Other Systems Reviewed And Are Negative: No Physical Exam - Summary Physical Exam Summary: Appearance: Well appearing, no pain distress Skin: warm, dry, reflects adequate perfusion Head/face: normal Eyes: EOMI, KAROL ENT: normal Neck: supple, non-tender Respiratory: CTA, breath sounds present Cardiovascular: RRR, pulses symmetrical Abdomen: non-tender, soft Bowel: present Musculoskeletal: normal, strength/ROM intact Neuro: normal, sensory motor intact, A&Ox3 Psychiatric: Anxious, agitated. LEVEL 5 CAVEAT: Physical Exam limited by restless patient Triage Information Reviewed: Yes Vital Signs On Initial Exam: Initial Vitals Temp Pulse Resp BP Pulse Ox 98.6 F 96 16 136/83 100 03/17/17 20:33 03/17/17 20:33 03/17/17 20:33 03/17/17 20:33 03/17/17 20:33 Vital Signs Reviewed: Yes Diagnostics - Vital Signs Vital Signs Temp Pulse Resp BP Pulse Ox 03/17/17 20:33 98.6 F 96 16 136/83 100 - Laboratory Lab Results: Lab Results 03/17/17 03/17/17 03/17/17 Range/Units 22:00 22:00 22:52 WBC 11.9 H (3.5-10.8) 10^3/ul RBC 4.00 (4.0-5.4) 10^6/ul Hgb 12.7 (12.0-16.0) g/dl Hct 38 (35-47) % MCV 95 (80-97) fL MCH 32 H (27-31) pg MCHC 34 (31-36) g/dl RDW 13 (10.5-15) % Plt Count 310 (150-450) 10^3/ul MPV 8 (7.4-10.4) um3 Neut % (Auto) 67.5 (38-83) % Lymph % (Auto) 23.7 L (25-47) % Meigs % (Auto) 7.2 (1-9) % Eos % (Auto) 1.2 (0-6) % Baso % (Auto) 0.4 (0-2) % Absolute Neuts (auto) 8.1 H (1.5-7.7) 10^3/ul Absolute Lymphs (auto) 2.8 (1.0-4.8) 10^3/ul Absolute Monos (auto) 0.9 H (0-0.8) 10^3/ul Absolute Eos (auto) 0.1 (0-0.6) 10^3/ul Absolute Basos (auto) 0.1 (0-0.2) 10^3/ul Absolute Nucleated RBC 0 10^3/ul Nucleated RBC % 0 Sodium 137 (133-145) mmol/L Potassium 3.5 (3.5-5.0) mmol/L Chloride 104 (101-111) mmol/L Carbon Dioxide 27 (22-32) mmol/L Anion Gap 6 (2-11) mmol/L BUN 9 (6-24) mg/dL Creatinine 0.79 (0.51-0.95) mg/dL Est GFR ( Amer) 116.0 (>60) Est GFR (Non-Af Amer) 90.2 (>60) BUN/Creatinine Ratio 11.4 (8-20) Glucose 139 H (70-100) mg/dL Calcium 9.9 (8.6-10.3) mg/dL Total Bilirubin 1.20 H (0.2-1.0) mg/dL AST 26 (13-39) U/L ALT 45 (7-52) U/L Alkaline Phosphatase 54 (34-104) U/L Total Protein 8.0 (6.4-8.9) g/dL Albumin 4.7 (3.2-5.2) g/dL Globulin 3.3 (2-4) g/dL Albumin/Globulin Ratio 1.4 (1-3) TSH 7.68 H (0.34-5.60) mcIU/mL Beta HCG, Quant < 0.60 mIU/mL Urine Color Urine Appearance Urine pH (5-9) Ur Specific [place] (1.010-1.030) Urine Protein (Negative) Urine Ketones (Negative) Urine Blood (Negative) Urine Nitrate (Negative) Urine Bilirubin (Negative) Urine Urobilinogen (Negative) Ur Leukocyte Esterase (Negative) Urine WBC (Auto) (Absent) Urine RBC (Auto) (Absent) Ur Squamous Epith Cells (Absent) Urine Bacteria (Absent) Urine Glucose (Negative) Salicylates < 2.50 (<30) mg/dL Urine Opiates Screen None detected (None Detect) Acetaminophen < 15 mcg/mL Ur Barbiturates Screen None detected (None Detect) Ur Phencyclidine Scrn None detected (None Detect) Ur Amphetamines Screen None detected (None Detect) U Benzodiazepines Scrn None detected (None Detect) Paradise 0.33 L (0.6-1.2) mmol/L Urine Cocaine Screen None detected (None Detect) U Cannabinoids Screen None detected (None Detect) Serum Alcohol < 10 (<10) mg/dL 03/17/17 Range/Units 22:52 WBC (3.5-10.8) 10^3/ul RBC (4.0-5.4) 10^6/ul Hgb (12.0-16.0) g/dl Hct (35-47) % MCV (80-97) fL MCH (27-31) pg MCHC (31-36) g/dl RDW (10.5-15) % Plt Count (150-450) 10^3/ul MPV (7.4-10.4) um3 Neut % (Auto) (38-83) % Lymph % (Auto) (25-47) % Meigs % (Auto) (1-9) % Eos % (Auto) (0-6) % Baso % (Auto) (0-2) % Absolute Neuts (auto) (1.5-7.7) 10^3/ul Absolute Lymphs (auto) (1.0-4.8) 10^3/ul Absolute Monos (auto) (0-0.8) 10^3/ul Absolute Eos (auto) (0-0.6) 10^3/ul Absolute Basos (auto) (0-0.2) 10^3/ul Absolute Nucleated RBC 10^3/ul Nucleated RBC % Sodium (133-145) mmol/L Potassium (3.5-5.0) mmol/L Chloride (101-111) mmol/L Carbon Dioxide (22-32) mmol/L Anion Gap (2-11) mmol/L BUN (6-24) mg/dL Creatinine (0.51-0.95) mg/dL Est GFR ( Amer) (>60) Est GFR (Non-Af Amer) (>60) BUN/Creatinine Ratio (8-20) Glucose (70-100) mg/dL Calcium (8.6-10.3) mg/dL Total Bilirubin (0.2-1.0) mg/dL AST (13-39) U/L ALT (7-52) U/L Alkaline Phosphatase (34-104) U/L Total Protein (6.4-8.9) g/dL Albumin (3.2-5.2) g/dL Globulin (2-4) g/dL Albumin/Globulin Ratio (1-3) TSH (0.34-5.60) mcIU/mL Beta HCG, Quant mIU/mL Urine Color Yellow Urine Appearance Clear Urine pH 6.0 (5-9) Ur Specific [place] 1.008 L (1.010-1.030) Urine Protein Negative (Negative) Urine Ketones Negative (Negative) Urine Blood 3+ H (Negative) Urine Nitrate Negative (Negative) Urine Bilirubin Negative (Negative) Urine Urobilinogen Negative (Negative) Ur Leukocyte Esterase Negative (Negative) Urine WBC (Auto) Trace(0-5/hpf) (Absent) Urine RBC (Auto) Trace(0-2/hpf) (Absent) Ur Squamous Epith Cells Present H (Absent) Urine Bacteria 1+ H (Absent) Urine Glucose Negative (Negative) Salicylates (<30) mg/dL Urine Opiates Screen (None Detect) Acetaminophen mcg/mL Ur Barbiturates Screen (None Detect) Ur Phencyclidine Scrn (None Detect) Ur Amphetamines Screen (None Detect) U Benzodiazepines Scrn (None Detect) Paradise (0.6-1.2) mmol/L Urine Cocaine Screen (None Detect) U Cannabinoids Screen (None Detect) Serum Alcohol (<10) mg/dL Result Diagrams: 03/17/17 22:00 03/17/17 22:00 Lab Statement: Any lab studies that have been ordered have been reviewed, and results considered in the medical decision making process. Course/Dx - Course Assessment/Plan: The patient is a 22 year old female brought in by her family friend with extreme restlessness. She is anxious and agitated. Bloodwork and urinalysis were obtained. She is admitted to [facility] and diagnosed with acute psychosis and history of bipolar disorder. - Differential Dx/Clinical Impression Differential Diagnosis/HQI/PQRI: Positive: Acute Psychosis, Bipolar Disorder, Depression, Schizophrenia Provider Diagnosis: Acute psychosis, History of bipolar disorder - Physician Notifications Discussed Care Of Patient With: Lucrecia Berger Time Discussed With Above Provider: 02:00 Instructed by Provider To: Admit As Inpatient - Critical Care Time Critical Care Time: 30-74 min Discharge - Discharge Plan Condition: Stable Disposition: ADMITTED TO [facility] The documentation as recorded by the Zahra garnett Thomas accurately reflects the service I personally performed and the decisions made by Antoine buchanan Emmanuel.
[2017-03-18] MEDS: ARIPiprazole TAB* 20 MG PO SCH (07:39)
[2017-03-18] MEDS: Vitamin THERAPEUTIC TAB PO SCH (07:40)
[2017-03-18] MEDS ORDERED: Lithium Carbonate ER* 450 MG TAB.ER PO SCH (09:00)
[2017-03-18] MEDS ORDERED: LORazepam TAB(*) 0.5 MG PO SCH (09:00)
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
[2017-03-18] MEDS ORDERED: OLANzapine TAB*ODT* 5 MG ONE (12:11)
[2017-03-18] MEDS ORDERED: LORazepam TAB(*) 1 MG ONE (12:11)
[2017-03-18] MEDS: OLANzapine TAB*ODT* 5 MG PO PRN (19:06)
[2017-03-18] MEDS: Lithium Carbonate ER* 450 MG TAB.ER PO SCH (20:28)
[2017-03-18] MEDS: LORazepam TAB(*) 1 MG PO SCH (20:29)
[2017-03-18] MEDS: Docusate CAP* 100 MG PO SCH (20:29)
[2017-03-18] MEDS ORDERED: QUEtiapine TAB* 25 MG PO SCH (21:00)
[2017-03-18] MEDS ORDERED: LORazepam TAB(*) 1 MG PO SCH (21:00)
[2017-03-18] MEDS ORDERED: chlorproMAZINE INJ* 25 MG/ML 2 ML (50 MG) ONE (22:29)
[2017-03-18] MEDS ORDERED: LORazepam INJ* 2 MG/ML 1 ML VIAL IM ONE (22:30)
[2017-03-18] MEDS ORDERED: chlorproMAZINE INJ* 25 MG/ML 2 ML (50 MG) IM ONE (22:30)
[2017-03-19] MEDS: Lithium Carbonate ER* 450 MG TAB.ER PO SCH ×2 (08:17→20:16)
[2017-03-19] MEDS: LORazepam TAB(*) 1 MG PO SCH ×4 (08:17→20:17)
[2017-03-19] MEDS: Vitamin THERAPEUTIC TAB PO SCH (08:17)
[2017-03-19] MEDS: ARIPiprazole TAB* 20 MG PO SCH (08:17)
[2017-03-19] MEDS: Docusate CAP* 100 MG PO SCH ×2 (08:17→20:19)
[2017-03-19] MEDS ORDERED: Influenza VAC *QUAD* 2017-18* 0.5 ML SYRINGE IM ONE (09:00)
[2017-03-19] MEDS ORDERED: LORazepam TAB(*) 1 MG ONE (09:40)
[2017-03-19] MEDS ORDERED: OLANzapine TAB*ODT* 5 MG ONE (09:40)
[2017-03-19] MEDS ORDERED: chlorproMAZINE INJ* 25 MG/ML 2 ML (50 MG) ONE (09:47)
[2017-03-19] MEDS ORDERED: chlorproMAZINE INJ* 25 MG/ML 2 ML (50 MG) IM ONE ×2 (11:45→16:30)
--- NOTE | 2017-03-19 15:40 | PN ---
Subjective - Subjective Subjective: Psychiatric Attending Progress Note: The events of yesterday evening reviewed with staff in morning report. After zyprexa 5 mg and Ativan 2 mg yesterday late afternoon, patient slept for several hours and then remained in her room on the mattress which had been placed on the floor for patient safety. patient remained disorganized in her speech and behavior. mood highly labile-at times crying or yelling out angrily. patient observed to be talking out loud rambling excessively in sami. patient felt to be responding to internal stimuli and internally preoccupied. At about 11 pm last night, patient became increasingly agitated. she began screaming and wailing very loudly. staff intervened by attempting to offer verbal support. she began making movements that were purposeless (getting up suddenly and then throwing herself to the floor, followed by asking staff to help her up) patient's behavior highly regressed. patient subsequently became combative-hitting and kicking staff. She was ultimately escorted to the quiet room which was left open and administered IM thorazine 50 mg and Ativan 2 mg with good effect. PATIENT SUBSEQUENTLY SLEPT 6 hours Patient took all scheduled medications today at llAM patient began screaming loudly, talking incessantly to herself in sami. when speaking in Palauan her thoughts were not coherent but illogic. Patient able to answer some questions appropriately. She continues to be agitated, hostile, responding to internal stimuli, and displaying profound thought disorder. Patient's speech is loud, pressured and at times dysarthric. She also evidences flight of ideas and psychomotor agitation. Patient again was escorted to quiet room. she received ativan 2 mg po but dumped out zyprexa 5 mg subsequently I ordered another ativan 2 mg IM and Thorazine 50 mg IM which were given in two separate injections. Patient fell to sleep and slept for about 5 hours. Vital Signs: Temp Pulse Resp BP Pulse Ox 98.8 F 105 16 125/75 100 03/19/17 07:51 03/19/17 07:51 03/19/17 15:20 03/19/17 07:51 03/19/17 07:51 patient's lips appear parched MSE: as above Impression: bipolar yahaira with psychotic features PTSD severe delayed onset Plan: will hold on abilify mantenna for now abilify 20 mg qam lithium er 675 mg BID ativan 1 mg QID will give [id number] IM or zyprexa 5 mg PO q4h prn agiation/combative behavior will give zyprexa 10 mg tonight to induce sleep. along with 2 mg ativan Plan - Plan Treatment Plan: Name: MANDY SAMAYOA Birthdate: 1995 [id number] Medications: Current Medications Acetaminophen (Tylenol Tab*) 650 mg PO Q4H PRN PRN Reason: PAIN or TEMP > 101 F Al Hydrox/Mg Hydrox/Simethicone (Maalox Plus*) 30 ml PO Q4H PRN PRN Reason: INDIGESTION Aripiprazole (Abilify Tab*) 20 mg PO DAILY [facility] Last Admin: 03/19/17 08:17 Dose: 20 mg Docusate Sodium (Colace Cap*) 100 mg PO BID [facility] Last Admin: 03/19/17 08:17 Dose: 100 mg [place] Carbonate ([place] Carbonate Er Tab*) 675 mg PO BID@0900,2100 [facility] Last Admin: 03/19/17 08:17 Dose: 675 mg Lorazepam (Ativan Tab(*)) 1 mg PO QID [facility] Last Admin: 03/19/17 13:57 Dose: 1 mg Multivitamins (Theragran Tab*) 1 tab PO DAILY [facility] Last Admin: 03/19/17 08:17 Dose: 1 tab Olanzapine (Zyprexa * Tab Odt) 5 mg PO Q6H PRN PRN Reason: agitation/psychosis Last Admin: 03/18/17 19:06 Dose: 5 mg Quetiapine Fumarate (Seroquel Tab*) 50 mg PO BEDTIME [facility] Last Admin: 03/18/17 20:29 Dose: 50 mg
[2017-03-19] MEDS ORDERED: LORazepam INJ* 2 MG/ML 1 ML VIAL IV PUSH PRN (16:29)
[2017-03-19] MEDS ORDERED: LORazepam INJ* 2 MG/ML 1 ML VIAL IM ONE (16:30)
[2017-03-19] MEDS ORDERED: OLANzapine TAB*ODT* 10 MG TAB PO ONE (21:00)
[2017-03-19] MEDS ORDERED: chlorproMAZINE TAB* 100 MG PO ONE (21:20)
[2017-03-19] MEDS ORDERED: chlorproMAZINE TAB* 100 MG ONE (21:26)
[2017-03-19] MEDS: OLANzapine TAB*ODT* 5 MG PO PRN (21:32)
[2017-03-20] MEDS ORDERED: chlorproMAZINE TAB* 100 MG PO ONE (01:39)
[2017-03-20] MEDS ORDERED: chlorproMAZINE TAB* 100 MG ONE (01:41)
[2017-03-20] MEDS: OLANzapine TAB*ODT* 5 MG PO PRN ×3 (04:15→20:11)
[2017-03-20] MEDS ORDERED: chlorproMAZINE INJ* 25 MG/ML 2 ML (50 MG) ONE (07:35)
[2017-03-20] MEDS: Lithium Carbonate ER* 450 MG TAB.ER PO SCH ×2 (07:53→20:11)
[2017-03-20] MEDS: ARIPiprazole TAB* 20 MG PO SCH (07:53)
[2017-03-20] MEDS: LORazepam TAB(*) 1 MG PO SCH ×4 (07:53→20:11)
[2017-03-20] MEDS: Docusate CAP* 100 MG PO SCH ×2 (07:53→20:11)
[2017-03-20] MEDS: Vitamin THERAPEUTIC TAB PO SCH (07:57)
[2017-03-20] MEDS ORDERED: LORazepam INJ* 2 MG/ML 1 ML VIAL ONE (08:35)
[2017-03-20] MEDS ORDERED: diPHENhydraMINE IV* 50 MG/ML 1 ml VIAL (BENADRYL) ONE (08:35)
[2017-03-20] MEDS ORDERED: chlorproMAZINE INJ* 25 MG/ML 2 ML (50 MG) IM ONE (13:00)
[2017-03-20] MEDS ORDERED: diPHENhydraMINE IV* 50 MG/ML 1 ml VIAL (BENADRYL) IM ONE (13:00)
[2017-03-20] MEDS ORDERED: LORazepam INJ* 2 MG/ML 1 ML VIAL IM ONE (13:00)
[2017-03-20] MEDS ORDERED: OLANzapine TAB*ODT* 5 MG PO PRN (15:44)
[2017-03-20 17:42] LABS: ABS Basophils 0 10^3/ul (0-0.2); ABS Eosinophils 0.2 10^3/ul (0-0.6); ABS Lymphocytes 1.5 10^3/ul (1.0-4.8); ABS Monocytes 0.6 10^3/ul (0-0.8); ABS Neutrophils 5.5 10^3/ul (1.5-7.7); ABS Nucleated RBC 0 10^3/ul; Eosinophil % 2.8 % (0-6); Hematocrit 37 % (35-47); Hemoglobin 12.5 g/dl (12.0-16.0); Lymphocyte % 19.4 % (25-47); Mean Corpuscular HGB Conc 34 g/dl (31-36); Mean Corpuscular Hemoglobin 32 pg (27-31); Mean Corpuscular Volume 95 fL (80-97); Mean Platelet Volume 8 um3 (7.4-10.4); Nucleated Red Blood Cells % 0; Platelet Count 256 10^3/ul (150-450); Red Blood Count 3.86 10^6/ul (4.0-5.4); Red Cell Distribution Width 13 % (10.5-15); White Blood Count 7.8 10^3/ul (3.5-10.8)
[2017-03-20] MEDS ORDERED: OLANzapine TAB*ODT* 10 MG TAB PO ONE (23:20)
[2017-03-20] MEDS: LORazepam TAB(*) 1 MG PO PRN (23:25)
[2017-03-21] MEDS ORDERED: LORazepam INJ* 2 MG/ML 1 ML VIAL IM ONE (01:32)
[2017-03-21] MEDS ORDERED: chlorproMAZINE INJ* 25 MG/ML 2 ML (50 MG) IM ONE (01:32)
[2017-03-21] MEDS ORDERED: LORazepam INJ* 2 MG/ML 1 ML VIAL ONE (01:40)
[2017-03-21] MEDS ORDERED: chlorproMAZINE INJ* 25 MG/ML 2 ML (50 MG) ONE (01:41)
[2017-03-21] MEDS: Vitamin THERAPEUTIC TAB PO SCH (07:51)
[2017-03-21] MEDS: Lithium Carbonate ER* 450 MG TAB.ER PO SCH ×2 (07:51→20:28)
[2017-03-21] MEDS: Docusate CAP* 100 MG PO SCH ×2 (07:51→20:28)
[2017-03-21] MEDS: LORazepam TAB(*) 1 MG PO SCH ×4 (07:51→20:28)
[2017-03-21] MEDS: OLANzapine TAB*ODT* 5 MG PO PRN ×3 (09:00→23:40)
[2017-03-21] MEDS ORDERED: ARIPiprazole TAB* 15 MG PO SCH (09:00)
[2017-03-21] MEDS: LORazepam TAB(*) 1 MG PO PRN ×4 (09:16→23:40)
[2017-03-21] MEDS: OLANzapine TAB*ODT* 10 MG TAB PO SCH (20:41)
[2017-03-22] MEDS ORDERED: LORazepam INJ* 2 MG/ML 1 ML VIAL IM ONE (01:35)
[2017-03-22] MEDS ORDERED: chlorproMAZINE INJ* 25 MG/ML 2 ML (50 MG) IM ONE (01:35)
[2017-03-22] MEDS: LORazepam TAB(*) 1 MG PO PRN ×3 (04:42→22:18)
[2017-03-22] MEDS: OLANzapine TAB*ODT* 5 MG PO PRN ×2 (04:42→16:29)
[2017-03-22] MEDS: Acetaminophen TAB* 325 MG PO PRN (04:47)
[2017-03-22] MEDS: Lithium Carbonate ER* 450 MG TAB.ER PO SCH ×2 (10:44→19:48)
[2017-03-22] MEDS: LORazepam TAB(*) 1 MG PO SCH ×4 (10:46→19:47)
[2017-03-22] MEDS: Docusate CAP* 100 MG PO SCH ×2 (10:47→19:47)
[2017-03-22] MEDS: Vitamin THERAPEUTIC TAB PO SCH (10:47)
[2017-03-22] MEDS: diPHENhydraMINE PO* 50 MG PO ONE ×2 (11:33→18:34)
[2017-03-22] MEDS ORDERED: chlorproMAZINE TAB* 50 MG PO ONE (12:00)
--- NOTE | 2017-03-22 17:41 | PN ---
Subjective - Subjective Subjective: Kya remains regressed, child-like, periodically agitated, screaming at the top of her lungs and repeatedly attempting to hit staff. She has required prn medications as attempts to verbally redirect her are generally unsuccessful. Observed talking to self as if reciting some incantations and some point bowed in front of this greeting card writer. Staff's observations have been that prescribed prn meds seem to have little effects on her and Thorazine and Benadryl were more effective in sedating her. Repeat Li: 1.15 Objective - Appearance Appearance: Healthy Appearing Dysmorphic Features: No Hygiene: Normal Grooming: Disheveled - Behavior Psychomotor Activities: Abnormal-Increased Exhibits Abnormal Movement: No - Attitude and Relatedness Attitude and Relatedness: Child Like Eye Contact: Poor - Speech Quality: Unpressured - Affect Observed Affect: Labile Affect Consistent with: Dysphoria - Thought Process Patient's Thought Process: Disorganized - Level of Consciousness Level of Consciousness: Alert Orientation: Yes Intact - Impulse Control Impulse Control: Poor - Insight and Judgement Insight and Judgement: Impaired - Group Participation Particating in Group Activities: No - Medication Management Medication Management Adherence: Yes Assessment - Assessment Merits Inpatient Hospitalization: For Ongoing Evaluation, Consolidate Improvements Inpatient DSM-IV Dx: Bipolar I, manic, sever, with psychotic features; History of PTSD; Clinical Impression: Ongoing impairing manic and psychotic symptoms. Tolerating trial of [place]. She needs continued admission for stabilization. Plan - Plan Treatment Plan: Name: MANDY SAMAYOA Birthdate: 1995 [id number] Medications: Current Medications Acetaminophen (Tylenol Tab*) 650 mg PO Q4H PRN PRN Reason: PAIN or TEMP > 101 F Last Admin: 03/22/17 04:47 Dose: 650 mg Al Hydrox/Mg Hydrox/Simethicone (Maalox Plus*) 30 ml PO Q4H PRN PRN Reason: INDIGESTION Docusate Sodium (Colace Cap*) 100 mg PO BID [facility] Last Admin: 03/22/17 10:47 Dose: 100 mg [place] Carbonate ([place] Carbonate Er Tab*) 675 mg PO BID@0900,2100 [facility] Last Admin: 03/22/17 10:44 Dose: 675 mg Lorazepam (Ativan Tab(*)) 1 mg PO QID [facility] Last Admin: 03/22/17 16:25 Dose: 1 mg Lorazepam (Ativan Tab(*)) 1 mg PO Q4H PRN PRN Reason: agitation/anxiety Last Admin: 03/22/17 16:32 Dose: 1 mg Multivitamins (Theragran Tab*) 1 tab PO DAILY [facility] Last Admin: 03/22/17 10:47 Dose: 1 tab Olanzapine (Zyprexa * Tab Odt) 5 mg PO Q4H PRN PRN Reason: agitation/psychosis Last Admin: 03/22/17 16:29 Dose: 5 mg Olanzapine (Zyprexa *Odt*) 10 mg PO BEDTIME [facility] Last Admin: 03/21/17 20:41 Dose: 10 mg - Discharge Plan Discharge Plan: Outpatient Follow Up Outpatient Program: [facility]
[2017-03-22] MEDS ORDERED: diPHENhydraMINE PO* 50 MG ONE ×2 (18:34→18:37)
[2017-03-22] MEDS ORDERED: chlorproMAZINE TAB* 100 MG ONE (18:34)
[2017-03-22 18:55] LABS: Urine Appearance Clear; Urine Blood Negative (Negative); Urine Color Straw; Urine Ketones Negative (Negative); Urine Protein Negative (Negative); Urine Specific Gravity 1.004 (1.010-1.030); Urine Urobilinogen Negative (Negative)
[2017-03-22] MEDS: OLANzapine TAB*ODT* 10 MG TAB PO SCH (19:46)
[2017-03-22] MEDS: OLANzapine TAB*ODT* 10 MG TAB PO PRN (22:18)
[2017-03-22] MEDS ORDERED: LORazepam TAB(*) 1 MG PO PRN (23:28)
[2017-03-23] MEDS ORDERED: LORazepam TAB(*) 1 MG ONE (00:16)
[2017-03-23 00:27] LABS: EGFR Non-African American 81.8 (>60)
[2017-03-23] MEDS: LORazepam TAB(*) 1 MG PO PRN ×2 (05:20→09:24)
[2017-03-23] MEDS: LORazepam TAB(*) 1 MG PO SCH ×3 (08:38→20:18)
[2017-03-23] MEDS: Lithium Carbonate ER* 450 MG TAB.ER PO SCH (08:38)
[2017-03-23] MEDS: Docusate CAP* 100 MG PO SCH ×2 (08:39→19:51)
[2017-03-23] MEDS: Vitamin THERAPEUTIC TAB PO SCH (08:44)
[2017-03-23] MEDS: OLANzapine TAB*ODT* 10 MG TAB PO PRN (09:24)
[2017-03-23] MEDS ORDERED: Benztropine INJ* 1 MG/ML 2 ML AMP ONE (09:49)
[2017-03-23] MEDS ORDERED: Haloperidol INJ IV/IM* 5 MG/ML AMP ONE (09:49)
[2017-03-23] MEDS ORDERED: LORazepam TAB(*) 1 MG PO PRN (10:59)
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
[2017-03-23] MEDS: Haloperidol TAB* 2 MG PO SCH ×3 (14:34→19:54)
[2017-03-23] MEDS: Benztropine TAB* 1 MG PO SCH ×2 (14:34→19:54)
[2017-03-23 17:49] LABS: EGFR Non-African American 87.6 (>60)
[2017-03-23] MEDS ORDERED: QUEtiapine TAB* 100 MG PO SCH (21:00)
[2017-03-23] MEDS ORDERED: Lithium Carbonate ER* 450 MG TAB.ER PO SCH ×2 (21:00)
[2017-03-23] MEDS: LORazepam TAB(*) 0.5 MG PO SCH (21:10)
[2017-03-24] MEDS ORDERED: chlorproMAZINE TAB* 50 MG PO ONE (03:05)
[2017-03-24] MEDS ORDERED: diPHENhydraMINE PO* 50 MG PO ONE (03:05)
[2017-03-24] MEDS ORDERED: chlorproMAZINE TAB* 50 MG ONE (03:08)
[2017-03-24] MEDS ORDERED: diPHENhydraMINE PO* 50 MG ONE (03:08)
[2017-03-24] MEDS: Vitamin THERAPEUTIC TAB PO SCH (07:05)
[2017-03-24] MEDS: Benztropine TAB* 1 MG PO SCH ×3 (07:05→21:25)
[2017-03-24] MEDS: LORazepam TAB(*) 0.5 MG PO SCH (07:05)
[2017-03-24] MEDS: Docusate CAP* 100 MG PO SCH ×2 (07:05→21:25)
[2017-03-24] MEDS: Haloperidol TAB* 2 MG PO SCH (07:05)
[2017-03-24] MEDS ORDERED: Lithium Carbonate ER* 450 MG TAB.ER PO SCH ×3 (09:00→21:00)
[2017-03-24] MEDS ORDERED: chlorproMAZINE INJ* 25 MG/ML 2 ML (50 MG) ONE (11:48)
[2017-03-24] MEDS: chlorproMAZINE TAB* 100 MG ONE ×2 (12:03→13:12)
--- NOTE | 2017-03-24 12:08 | PN ---
Subjective - Subjective Subjective: Psychiatric Attending Progress Note: remains highly agitated with short periods of 2 to 3 hours of sleep followed by severe psychomotor restlessness. over night Juice continued with excessive pressured speech which is incoherent. babbles incessantly in Ukrainian and will briefly switch to polish when requested. severe lability of mood. patient goes from crying to laughing to screaming very rapidly. today patient was banging on door of quiet room and displaying aggressive behavior toward RN who was supervising her while vein access technician took a break. over the past 24 hours patient has been more agitated. I made switch to haldol which has not been effective. If anything ativan appears to be disinhibiting patient. Free T4 and Total T4 both within normal range Repeat [place] level is 1.12 patient is urinating and drinking frequently per staff I have been very impressed with amount of fluids and food which she has been receiving. Calorie intake and fluid intake is clearly adequate as evidenced by production of tears, moist mucous membranes. vitals this AM T 100.4 BP 102/77 HR 110 RR 12 02 sat 100 percent PE: mucous membranes moist EOMI, HOME neck supple extremities: no evidence of muscular rigidity or stiffness, no CC or E Chest clear to Ausculation Heart RRR normal s1 normal s2 no murmur abdomen soft non distended Impression: acute yahaira with psychotic features low grade fever can be seen with prolonged agitation. patient does not have cough. non focal physical exam no evidence of NMS (ie. no rigidity, no diaphoresis, bp is stable) will observe for now Plan: haldol and ativan scheduled doses discontinued this am s/p thorazine 100 mg Po at 11 AM s/p thoraazine 100 mg IM at 12 pm s/p thorazine 100 mg IM at 2:30 pm s/p thorazine 100 mg IM at 5:00 pm will also give 5 mg Valium IM X 1 patient is close to threshold for sleep. she continues to have high medication requirement to achieve sedation goal is to achieve sedation/sleep for 8 to 10 hours minimum in order to treat acute manic agitation will draw blood tonight including LDH, ck, ast, alt, alkphosphatase, uric aacid , P,K, myoglobin, cbc, serum iron to check for impending NMS which is low index of suspicion given absence of rigidity.
[2017-03-24] MEDS ORDERED: chlorproMAZINE INJ* 25 MG/ML 2 ML (50 MG) IM ONE ×3 (12:45→17:10)
[2017-03-24] MEDS ORDERED: Divalproex ER TAB(*) 500 MG PO ONE (12:46)
[2017-03-24] MEDS ORDERED: Divalproex ER TAB(*) 500 MG ONE (12:59)
[2017-03-24] MEDS ORDERED: chlorproMAZINE INJ* 50 MG in NS 0.9% 50 ML* 50 ML IV SCH (13:00)
[2017-03-24] MEDS ORDERED: Diazepam INJ (NF) 5 MG/ML 10 ML VIAL (50 MG TOTAL) IM ONE (17:12)
[2017-03-24 18:01] LABS: ABS Basophils 0 10^3/ul (0-0.2); ABS Eosinophils 0.3 10^3/ul (0-0.6); ABS Lymphocytes 1.5 10^3/ul (1.0-4.8); ABS Monocytes 0.6 10^3/ul (0-0.8); ABS Neutrophils 6.2 10^3/ul (1.5-7.7); ABS Nucleated RBC 0 10^3/ul; Eosinophil % 2.9 % (0-6); Hematocrit 34 % (35-47); Hemoglobin 11.7 g/dl (12.0-16.0); Lymphocyte % 17.2 % (25-47); Mean Corpuscular HGB Conc 34 g/dl (31-36); Mean Corpuscular Hemoglobin 32 pg (27-31); Mean Corpuscular Volume 95 fL (80-97); Mean Platelet Volume 9 um3 (7.4-10.4); Nucleated Red Blood Cells % 0; Platelet Count 235 10^3/ul (150-450); Red Cell Distribution Width 13 % (10.5-15); White Blood Count 8.6 10^3/ul (3.5-10.8)
[2017-03-24 18:17] LABS: EGFR Non-African American 94.3 (>60)
[2017-03-24] MEDS: Lithium Carbonate ER* 450 MG TAB.ER PO SCH (21:25)
[2017-03-24] MEDS ORDERED: Diazepam TAB(*) 5 MG PO ONE (22:00)
[2017-03-24] MEDS ORDERED: Diazepam TAB(*) 5 MG ONE (22:26)
[2017-03-25] MEDS ORDERED: chlorproMAZINE TAB* 100 MG PO ONE (01:35)
[2017-03-25] MEDS ORDERED: Diazepam TAB(*) 5 MG PO ONE (01:35)
[2017-03-25] MEDS: Benztropine TAB* 1 MG PO SCH ×2 (07:36→21:42)
[2017-03-25] MEDS: Vitamin THERAPEUTIC TAB PO SCH (07:36)
[2017-03-25] MEDS: Lithium Carbonate ER* 450 MG TAB.ER PO SCH ×2 (07:36→21:43)
[2017-03-25] MEDS: Docusate CAP* 100 MG PO SCH ×2 (07:37→21:42)
[2017-03-25] MEDS: Divalproex ER TAB(*) 500 MG PO SCH (11:07)
[2017-03-25] MEDS ORDERED: Diazepam TAB(*) 5 MG PO SCH (12:00)
[2017-03-25] MEDS: Diazepam TAB(*) 5 MG PO SCH ×3 (12:17→21:42)
[2017-03-25] MEDS: chlorproMAZINE TAB* 50 MG PO SCH ×2 (12:17→16:35)
--- NOTE | 2017-03-25 13:42 | PN ---
Subjective - Subjective Subjective: Psychiatric Attending Progress Note: since switching to Thorazine/Valium combination patient has made gains. She has been considerably less agitated and nursing was able to bring her into milieu over the past 24 hours. She has been dressing on her own, washing her own face, feeding herself and has had increased periods of being calm. psychomotor agitation has begun to remit. patient's speech shows increased periods of being coherent. she continues to ramble and have periods of mood lability but she is also showing signs of more normal psychomotor behaviors. She continues to have good fluid and food intake. hygiene and ADL's have improved. She is crying less and smiling more. she continues to display bizarre and disorganized behaviors such as praying, or placing her face against a wall. She was able to sit in day room today and hum while listening to a song on the radio. she continues to be quite regressed and child like. her thought content remains difficult to ascertain she mumbles mostly in botswanan. Impression; Bipolar yahaira with psychotic symptoms PTSD delayed onset Plan: patient has responded to total of 300 mg IM thorzine and 100 mg po thorazine over past 24 hours. therefore, I will start her on total daily dose of 400 mg of thorazine as follows: THORAZINE 50 MG BID AT 1 PM AND 5 PM THORZINE 300 MG QHS VALIUM 5 MG TID DEPAKOTE ER 1000 MG DAILY LITHIUM CR 450 MG BID SEEMS BETTER DOSAGE PATIENT IS URINATING LESS. IT IS LIKELY THAT HIGHER LEVEL WAS CAUSING DIABETES INSIPIDUS.
[2017-03-25] MEDS: Diazepam TAB(*) 5 MG PO PRN (18:39)
[2017-03-25] MEDS: chlorproMAZINE TAB* 100 MG PO PRN (18:39)
[2017-03-25] MEDS ORDERED: chlorproMAZINE TAB* 100 MG PO SCH (21:00)
[2017-03-26] MEDS: Diazepam TAB(*) 5 MG PO PRN (00:44)
[2017-03-26] MEDS: chlorproMAZINE TAB* 100 MG PO PRN (00:44)
--- NOTE | 2017-03-26 06:33 | PN ---
Progress Note - Progress Note Date of Service: 03/26/17 Note: Ms Boland, a 22 YO female, admitted to [facility] for Bipolar yahaira & PTSD, was a CAT call for generalized weakness & decreased agitation. Upon arrival, she is lying back on a couch in the common area of [facility]. She has her eyes closed and is muttering in her eastern cherokee tongue. She does not answer questions coherently. At one point she is able to be understood saying she "thinks she is dying", but does not answer questions to clarify or further characterize. Initially, she does not respond much to me, but sits up and becomes more agitated and vocal when I hold her eyes open, not allowing her to blink for a few seconds. Vitals are stable, mild tachycardia, mild tachypnea. BP is low 100s systolic w/ negative orthostatics. Lungs: CTAB, normal effort CV: RRR, normal S1S2 abdomen: SNTND, NABS, no RGR extremities: W&D, no tenderness w/ palpation Medication review reveals significant doses of benzodiazepines & thorazine. assessment: plan AMS, likely medication related, but transient. no adjustments recommended : check CBC, CMP, lactic, & UA : vitals Q2H x4
[2017-03-26 08:47] LABS: ABS Basophils 0 10^3/ul (0-0.2); ABS Eosinophils 0.3 10^3/ul (0-0.6); ABS Monocytes 0.6 10^3/ul (0-0.8); ABS Neutrophils 6.1 10^3/ul (1.5-7.7); ABS Nucleated RBC 0 10^3/ul; Eosinophil % 4.1 % (0-6); Hematocrit 36 % (35-47); Hemoglobin 11.7 g/dl (12.0-16.0); Lymphocyte % 12.9 % (25-47); Mean Corpuscular HGB Conc 33 g/dl (31-36); Mean Corpuscular Hemoglobin 32 pg (27-31); Mean Corpuscular Volume 99 fL (80-97); Mean Platelet Volume 9 um3 (7.4-10.4); Nucleated Red Blood Cells % 0; Platelet Count 232 10^3/ul (150-450); Red Blood Count 3.63 10^6/ul (4.0-5.4); Red Cell Distribution Width 13 % (10.5-15); White Blood Count 8.1 10^3/ul (3.5-10.8)
[2017-03-26 09:02] LABS: EGFR Non-African American 91.5 (>60)
[2017-03-26 09:05] LABS: Urine Appearance Clear; Urine Blood Negative (Negative); Urine Color Straw; Urine Ketones Negative (Negative); Urine Protein Negative (Negative); Urine Specific Gravity 1.002 (1.010-1.030); Urine Urobilinogen Negative (Negative)
[2017-03-26] MEDS ORDERED: Potassium Chlor TAB* 20 MEQ TAB.ER PO ONE (09:34)
[2017-03-26] MEDS: Docusate CAP* 100 MG PO SCH ×2 (10:08→20:49)
[2017-03-26] MEDS: Benztropine TAB* 1 MG PO SCH ×2 (10:08→20:52)
[2017-03-26] MEDS: Lithium Carbonate ER* 450 MG TAB.ER PO SCH ×2 (10:09→20:48)
[2017-03-26] MEDS: Vitamin THERAPEUTIC TAB PO SCH (10:09)
[2017-03-26] MEDS: Divalproex ER TAB(*) 500 MG PO SCH (11:57)
[2017-03-26] MEDS: Diazepam TAB(*) 5 MG PO SCH ×4 (11:57→22:53)
[2017-03-26] MEDS: chlorproMAZINE TAB* 50 MG PO SCH ×3 (11:57→18:18)
--- NOTE | 2017-03-26 13:15 | RAD ---
INDICATION: Cough and fever. COMPARISON: There are no prior studies available for comparison. TECHNIQUE: A portable view of the chest was obtained. FINDINGS: The heart is within normal limits in size. The lungs are underinflated. There are small infiltrates at both lung bases. No pleural effusion is seen. There is mild to moderate distention of the stomach. IMPRESSION: LOW LUNG VOLUMES, SMALL BIBASILAR INFILTRATES SUGGESTIVE OF ATELECTASIS.
--- NOTE | 2017-03-26 13:25 | PN ---
Subjective - Subjective Subjective: Psychiatric Attending Progress Note: event of last night reviewed. patient not responding last night and was mute with eyes closed. patient was tachycardic with low normal BP with systolic of 103. CAT team was called and evaluated patient was seen by Dr. Flanagan and felt to be medically stable. This morning I observed patient seated in room eating her breakfast. Patient was alert, recognized me called my name. She continues to be in regressed state. babbling, mumbling in baby like voice, often in spanish. She is not coherent but can answer short questions when encouraged to do so. She is internally preoccupied likely with past traumatic events. Vitals this morning: Vital Signs: BP 123/78 HR 118 T101.8 limited physical exam: patient has unproductive cough neck supple EOMI no rhinorrhea lungs: decreased breath sound bilat bases with crackles abdomen: soft non tender Ext: no cyanosis or edema AP portable shows bibasilar infiltrates both bases low lung volumes Impression/Plan PTSD bipolar I manic with psychotic features patient is showing slow improvement. she is much less agitated, calm for longer periods of time, eating on own and even has been able to join the milieu for brief periods. she remains highly regressed. linda continue Thorazine but lower to 300 mg daily due to low normal BP and unresponsiveness seen last night which was the first time patient received 300 mg night time dose. change thorzine to 50 mg BId and 200 mg QHS continue valium 5 mg TId depakote ER and [place] CR unchanged at 450 mg BId and 1000 mg QD respectively will be speaking with Nereida, family friend who brought patient to hospital to increase data base. fever to 101.8, cough, bibailar infiltrates, slight left shift rule out atelectasis versus pneumonia. clnically patient is non toxic in appearance. she is not tachypneic. She very well may have had aspiration given altered mental status and the fact that she has been taking po fluids vigorously. I have called hospitalist to consult. Plan - Plan Treatment Plan: Name: MANDY SAMAYOA Birthdate: 1995 [id number] Medications: Current Medications Acetaminophen (Tylenol Tab*) 650 mg PO Q4H PRN PRN Reason: PAIN or TEMP > 101 F Last Admin: 03/22/17 04:47 Dose: 650 mg Al Hydrox/Mg Hydrox/Simethicone (Maalox Plus*) 30 ml PO Q4H PRN PRN Reason: INDIGESTION Benztropine Mesylate (Cogentin Tab*) 1 mg PO BID [facility] Last Admin: 03/26/17 10:08 Dose: Not Given Chlorpromazine HCl (Thorazine Tab*) 50 mg PO BID@, [facility] Last Admin: 03/26/17 11:57 Dose: 50 mg Chlorpromazine HCl (Thorazine Tab*) 300 mg PO BEDTIME [facility] Last Admin: 03/25/17 21:43 Dose: 300 mg Chlorpromazine HCl (Thorazine Tab*) 100 mg PO Q4H PRN PRN Reason: AGITATION Last Admin: 03/26/17 00:44 Dose: 100 mg Diazepam (Valium Tab(*)) 5 mg PO TID@,, [facility] Last Admin: 03/26/17 11:57 Dose: 5 mg Diazepam (Valium Tab(*)) 5 mg PO Q4H PRN PRN Reason: AGITATION Last Admin: 03/26/17 00:44 Dose: 5 mg Divalproex Sodium (Depakote Er Tab(*)) 1,000 mg PO DAILY@12 [facility] Last Admin: 03/26/17 11:57 Dose: 1,000 mg Docusate Sodium (Colace Cap*) 100 mg PO BID [facility] Last Admin: 03/26/17 10:08 Dose: Not Given [place] Carbonate ([place] Carbonate Er Tab*) 450 mg PO DAILY@09 [facility] Last Admin: 03/26/17 10:09 Dose: Not Given [place] Carbonate ([place] Carbonate Er Tab*) 450 mg PO BEDTIME [facility] Last Admin: 03/25/17 21:43 Dose: 450 mg Multivitamins (Theragran Tab*) 1 tab PO DAILY [facility] Last Admin: 03/26/17 10:09 Dose: Not Given
[2017-03-26] MEDS ORDERED: chlorproMAZINE TAB* 100 MG PO SCH (13:42)
[2017-03-26] MEDS ORDERED: Ibuprofen TAB* 400 MG PO ONE (15:15)
[2017-03-26] MEDS ORDERED: Acetaminophen TAB* 325 MG PO ONE (15:18)
[2017-03-26] MEDS ORDERED: Acetaminophen SUPP* 650 MG SUPP PR ONE (18:13)
[2017-03-26] MEDS ORDERED: Ibuprofen ADULT LIQ* 600 MG/30 ML UDC PO ONE (18:15)
--- NOTE | 2017-03-26 18:37 | PN ---
Subjective - Subjective Subjective: Progress note: requested staff repeat temperature after receiving tylenol and ibuprofen which I ordered two hours ago. nursing informed me that patient's temperature was reading above 107. I asked them to repeat this and temperature reading with electronic thermometer taken in ear was 106.5. patient is resting in supine position. she is babling iincoherently in [place] Influenza A and B swabs done earlier both negative Impression; patient has unknown source of fever but I am very concerned about bacteremia in the setting of pneumonia. given limited response to antipsychotic treatment, I am also concerned for encephalitis or bacteral meningitis although patient has had no photophobia, nuchal rigidity, emesis or headache. and was afebrile up until yesterday. Plan: as hospitalist has not as yet evaluated patient, I called again and spoke with Dr. Pate who informed me that hospitalist will be coming to see patient Tylenol 650 mg PA ordered stat additional dose of motrin 400 mg liquid ordered stat apply cool soaks to extremities and torso blood cultures ordered. patient will need IV access I have paged dr. barba and will request patient be transferred to the ICU Assessment - Assessment Inpatient DSM-IV Dx: Bipolar I, manic, sever, with psychotic features; History of PTSD; Plan - Plan Treatment Plan: Name: MANDY SAMAYOA Birthdate: 1995 [id number] Medications: Current Medications Acetaminophen (Tylenol Tab*) 650 mg PO Q4H PRN PRN Reason: PAIN or TEMP > 101 F Last Admin: 03/22/17 04:47 Dose: 650 mg Al Hydrox/Mg Hydrox/Simethicone (Maalox Plus*) 30 ml PO Q4H PRN PRN Reason: INDIGESTION Benztropine Mesylate (Cogentin Tab*) 1 mg PO BID [facility] Last Admin: 03/26/17 10:08 Dose: Not Given Chlorpromazine HCl (Thorazine Tab*) 50 mg PO BID@12,17 [facility] Last Admin: 03/26/17 18:18 Dose: Not Given Chlorpromazine HCl (Thorazine Tab*) 100 mg PO Q4H PRN PRN Reason: AGITATION Last Admin: 03/26/17 00:44 Dose: 100 mg Chlorpromazine HCl (Thorazine Tab*) 200 mg PO BEDTIME [facility] Diazepam (Valium Tab(*)) 5 mg PO TID@12,17,21 [facility] Last Admin: 03/26/17 18:18 Dose: Not Given Diazepam (Valium Tab(*)) 5 mg PO Q4H PRN PRN Reason: AGITATION Last Admin: 03/26/17 00:44 Dose: 5 mg Divalproex Sodium (Depakote Er Tab(*)) 1,000 mg PO DAILY@12 [facility] Last Admin: 03/26/17 11:57 Dose: 1,000 mg Docusate Sodium (Colace Cap*) 100 mg PO BID [facility] Last Admin: 03/26/17 10:08 Dose: Not Given [place] Carbonate ([place] Carbonate Er Tab*) 450 mg PO DAILY@09 [facility] Last Admin: 03/26/17 10:09 Dose: Not Given [place] Carbonate ([place] Carbonate Er Tab*) 450 mg PO BEDTIME [facility] Last Admin: 03/25/17 21:43 Dose: 450 mg Multivitamins (Theragran Tab*) 1 tab PO DAILY [facility] Last Admin: 03/26/17 10:09 Dose: Not Given
[2017-03-26] MEDS ORDERED: Amoxicillin/Clavulanate TAB* 875 MG PO ONE (18:56)
--- NOTE | 2017-03-26 19:00 | PN ---
Subjective - Subjective Subjective: patient seen by Dr. Pate. i was present during evaluation Dr. Pate does not feel that temperature was accurate. retaken and it is currently 102. patient does not appear toxic she knows year and my name. she is following commands Dr. pate and I agreed to manage patient's infection on psychiatry. likely viral pneumonia or other viral infection she agreed to treat with antibiotics in case this is bacterial she agrees with me that encephalitis/meningitis are both un likely given lack of photophobia, nuchal rigidity Also NMS unlikely as patient has no rigidity and lab values are all benign ie. CK not appreciably elevated plan: tylenol and motirn q4h to 6 h prn fever greater than or equal to 100.[address] Pate encourage patient stay well hydrated by encouraging po fluids Assessment - Assessment Inpatient DSM-IV Dx: Bipolar I, manic, sever, with psychotic features; History of PTSD; Plan - Plan Treatment Plan: Name: MANDY SAMAYOA Birthdate: 1995 [id number] Medications: Current Medications Acetaminophen (Tylenol Tab*) 650 mg PO Q4H PRN PRN Reason: PAIN or TEMP > 101 F Last Admin: 03/22/17 04:47 Dose: 650 mg Al Hydrox/Mg Hydrox/Simethicone (Maalox Plus*) 30 ml PO Q4H PRN PRN Reason: INDIGESTION Benztropine Mesylate (Cogentin Tab*) 1 mg PO BID [facility] Last Admin: 03/26/17 10:08 Dose: Not Given Chlorpromazine HCl (Thorazine Tab*) 50 mg PO BID@,17 [facility] Last Admin: 03/26/17 18:18 Dose: Not Given Chlorpromazine HCl (Thorazine Tab*) 100 mg PO Q4H PRN PRN Reason: AGITATION Last Admin: 03/26/17 00:44 Dose: 100 mg Chlorpromazine HCl (Thorazine Tab*) 200 mg PO BEDTIME [facility] Diazepam (Valium Tab(*)) 5 mg PO TID@12,17,21 [facility] Last Admin: 03/26/17 18:18 Dose: Not Given Diazepam (Valium Tab(*)) 5 mg PO Q4H PRN PRN Reason: AGITATION Last Admin: 03/26/17 00:44 Dose: 5 mg Divalproex Sodium (Depakote Er Tab(*)) 1,000 mg PO DAILY@12 [facility] Last Admin: 03/26/17 11:57 Dose: 1,000 mg Docusate Sodium (Colace Cap*) 100 mg PO BID [facility] Last Admin: 03/26/17 10:08 Dose: Not Given [place] Carbonate ([place] Carbonate Er Tab*) 450 mg PO DAILY@09 [facility] Last Admin: 03/26/17 10:09 Dose: Not Given [place] Carbonate ([place] Carbonate Er Tab*) 450 mg PO BEDTIME [facility] Last Admin: 03/25/17 21:43 Dose: 450 mg Multivitamins (Theragran Tab*) 1 tab PO DAILY [facility] Last Admin: 03/26/17 10:09 Dose: Not Given
[2017-03-27] MEDS: Acetaminophen TAB* 325 MG PO PRN ×2 (02:30→10:33)
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
[2017-03-27] MEDS: Docusate CAP* 100 MG PO SCH (08:15)
[2017-03-27] MEDS: Benztropine TAB* 1 MG PO SCH (08:16)
[2017-03-27] MEDS: Vitamin THERAPEUTIC TAB PO SCH (08:16)
[2017-03-27] MEDS: Lithium Carbonate ER* 450 MG TAB.ER PO SCH (08:16)
[2017-03-27] MEDS ORDERED: Amoxicillin/Clavulanate TAB* 875 MG PO SCH (09:00)
--- NOTE | 2017-03-27 10:35 | PN ---
Assessment - Assessment Inpatient DSM-IV Dx: Bipolar I, manic, sever, with psychotic features; History of PTSD; Plan - Plan Treatment Plan: Name: MANDY SAMAYOA Birthdate: 1995 [id number] Medications: Current Medications Acetaminophen (Tylenol Tab*) 650 mg PO Q4H PRN PRN Reason: PAIN or TEMP > 101 F Last Admin: 03/27/17 02:30 Dose: 650 mg Al Hydrox/Mg Hydrox/Simethicone (Maalox Plus*) 30 ml PO Q4H PRN PRN Reason: INDIGESTION Amoxicillin/Clavulanate Potassium (Augmentin Tab*) 875 mg PO BID [facility] Last Admin: 03/27/17 08:16 Dose: 875 mg Benztropine Mesylate (Cogentin Tab*) 1 mg PO BID [facility] Last Admin: 03/27/17 08:16 Dose: 1 mg Chlorpromazine HCl (Thorazine Tab*) 50 mg PO BID@12,17 [facility] Last Admin: 03/26/17 18:18 Dose: Not Given Chlorpromazine HCl (Thorazine Tab*) 100 mg PO Q4H PRN PRN Reason: AGITATION Last Admin: 03/26/17 00:44 Dose: 100 mg Chlorpromazine HCl (Thorazine Tab*) 200 mg PO BEDTIME [facility] Last Admin: 03/26/17 20:49 Dose: 200 mg Diazepam (Valium Tab(*)) 5 mg PO TID@12,17,21 [facility] Last Admin: 03/26/17 22:53 Dose: 5 mg Diazepam (Valium Tab(*)) 5 mg PO Q4H PRN PRN Reason: AGITATION Last Admin: 03/26/17 00:44 Dose: 5 mg Divalproex Sodium (Depakote Er Tab(*)) 1,000 mg PO DAILY@12 [facility] Last Admin: 03/26/17 11:57 Dose: 1,000 mg Docusate Sodium (Colace Cap*) 100 mg PO BID [facility] Last Admin: 03/27/17 08:15 Dose: 100 mg [place] Carbonate ([place] Carbonate Er Tab*) 450 mg PO DAILY@09 [facility] Last Admin: 03/27/17 08:16 Dose: 450 mg [place] Carbonate ([place] Carbonate Er Tab*) 450 mg PO BEDTIME [facility] Last Admin: 03/26/17 20:48 Dose: 450 mg Multivitamins (Theragran Tab*) 1 tab PO DAILY [facility] Last Admin: 03/27/17 08:16 Dose: 1 tab
[2017-03-27 11:15] LABS: ABS Basophils 0 10^3/ul (0-0.2); ABS Eosinophils 0.3 10^3/ul (0-0.6); ABS Lymphocytes 0.3 10^3/ul (1.0-4.8); ABS Monocytes 0.5 10^3/ul (0-0.8); ABS Neutrophils 4.7 10^3/ul (1.5-7.7); ABS Nucleated RBC 0 10^3/ul; Eosinophil % 4.7 % (0-6); Hematocrit 33 % (35-47); Hemoglobin 11.2 g/dl (12.0-16.0); Lymphocyte % 4.9 % (25-47); Mean Corpuscular HGB Conc 34 g/dl (31-36); Mean Corpuscular Hemoglobin 33 pg (27-31); Mean Corpuscular Volume 95 fL (80-97); Mean Platelet Volume 9 um3 (7.4-10.4); Nucleated Red Blood Cells % 0; Platelet Count 194 10^3/ul (150-450); Red Blood Count 3.43 10^6/ul (4.0-5.4); Red Cell Distribution Width 13 % (10.5-15); White Blood Count 5.8 10^3/ul (3.5-10.8)
--- NOTE | 2017-03-27 11:20 | DS ---
Treatment Course & Assessment Inpatient DSM-IV Dx: Bipolar I, manic, sever, with psychotic features; History of PTSD; Discharge Planning - Discharge Planning Medications: Current Medications Acetaminophen (Tylenol Tab*) 650 mg PO Q4H PRN PRN Reason: PAIN or TEMP > 101 F Last Admin: 03/27/17 10:33 Dose: 650 mg Al Hydrox/Mg Hydrox/Simethicone (Maalox Plus*) 30 ml PO Q4H PRN PRN Reason: INDIGESTION Amoxicillin/Clavulanate Potassium (Augmentin Tab*) 875 mg PO BID [facility] Last Admin: 03/27/17 08:16 Dose: 875 mg Benztropine Mesylate (Cogentin Tab*) 1 mg PO BID [facility] Last Admin: 03/27/17 08:16 Dose: 1 mg Chlorpromazine HCl (Thorazine Tab*) 50 mg PO BID@, [facility] Last Admin: 03/26/17 18:18 Dose: Not Given Chlorpromazine HCl (Thorazine Tab*) 100 mg PO Q4H PRN PRN Reason: AGITATION Last Admin: 03/26/17 00:44 Dose: 100 mg Chlorpromazine HCl (Thorazine Tab*) 200 mg PO BEDTIME [facility] Last Admin: 03/26/17 20:49 Dose: 200 mg Diazepam (Valium Tab(*)) 5 mg PO TID@,17, [facility] Last Admin: 03/26/17 22:53 Dose: 5 mg Diazepam (Valium Tab(*)) 5 mg PO Q4H PRN PRN Reason: AGITATION Last Admin: 03/26/17 00:44 Dose: 5 mg Divalproex Sodium (Depakote Er Tab(*)) 1,000 mg PO DAILY@12 [facility] Last Admin: 03/26/17 11:57 Dose: 1,000 mg Docusate Sodium (Colace Cap*) 100 mg PO BID [facility] Last Admin: 03/27/17 08:15 Dose: 100 mg [place] Carbonate ([place] Carbonate Er Tab*) 450 mg PO DAILY@09 [facility] Last Admin: 03/27/17 08:16 Dose: 450 mg [place] Carbonate ([place] Carbonate Er Tab*) 450 mg PO BEDTIME [facility] Last Admin: 03/26/17 20:48 Dose: 450 mg Multivitamins (Theragran Tab*) 1 tab PO DAILY [facility] Last Admin: 03/27/17 08:16 Dose: 1 tab Discharge Planning: Prescriptions provided for discharge [] Yes [] No Follow up care details as per social work arrangements. Patient response to discharge plan: [] eager for discharge [] agreeable with discharge plan [] ambivalent about discharge [] disagrees with discharge today
[2017-03-27 11:31] LABS: EGFR Non-African American 92.9 (>60)
[2017-03-27] MEDS: Diazepam TAB(*) 5 MG PO SCH (11:57)
[2017-03-27] MEDS: Divalproex ER TAB(*) 500 MG PO SCH (11:57)
[2017-03-27] MEDS: chlorproMAZINE TAB* 50 MG PO SCH (11:58)
[2017-03-27 12:08] VITALS: BP 123/66
== END 2017-03-27 13:45 | DRG 885 ==
LOC: ED 20:27 → BSU 03-18 00:20 → MED 03-27 11:10
PROVIDERS: ADMIT Psychiatry & Neurology Psychiatry; ATTEND Psychiatry & Neurology Psychiatry
DX: F31.2 Bipolar disorder, current episode manic severe with psychotic features (principal); B34.9 Viral infection, unspecified; F41.9 Anxiety disorder, unspecified; F90.9 Attention-deficit hyperactivity disorder, unspecified type; F43.10 Post-traumatic stress disorder, unspecified; G47.00 Insomnia, unspecified; E87.6 Hypokalemia; R41.82 Altered mental status, unspecified; Z82.49 Family history of ischemic heart disease and other diseases of the circulatory system; Z81.8 Family history of other mental and behavioral disorders
CPT/HCPCS: 36415; 71045; 80048; 80053; 80074; 80178; 80307; 80320; 80329; 81003; 81015; 82550; 82553; 83540; 83605; 83735; 83874; 83930; 84145; 84436; 84439; 84443; 84550; 84702; 85025; 85652; 86140; 87040; 87086; 87088; 87502; 90686; 93005; 99222; 99231; 99232; 99238; 99285; A9270-GY; G0480; J0515; J1200; J1630; J2060; J3360

== ENCOUNTER 2017-03-27 12:09 | Inpatient (IN) | payer OTHER ==
[2017-03-27] MEDS ORDERED: chlorproMAZINE TAB* 100 MG PO PRN (13:58)
[2017-03-27] MEDS ORDERED: Acetaminophen TAB* 325 MG PO PRN (15:31)
[2017-03-27] MEDS: NS 0.9% 1000 ML* 1,000 ML IV SCH (15:53)
[2017-03-27] MEDS: Diazepam TAB(*) 5 MG PO SCH ×2 (15:54→21:22)
[2017-03-27] MEDS: chlorproMAZINE TAB* 50 MG PO SCH (15:55)
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
[2017-03-27] MEDS ORDERED: Amoxicillin/Clavulanate TAB* 875 MG PO SCH (21:00)
[2017-03-27] MEDS: Docusate CAP* 100 MG PO SCH (21:16)
[2017-03-27] MEDS: Benztropine TAB* 1 MG PO SCH (21:17)
[2017-03-27] MEDS: Lithium Carbonate ER* 450 MG TAB.ER PO SCH (21:18)
[2017-03-27] MEDS: chlorproMAZINE TAB* 100 MG PO SCH (21:20)
[2017-03-28] MEDS: NS 0.9% 1000 ML* 1,000 ML IV SCH ×2 (02:47→12:10)
--- NOTE | 2017-03-28 04:20 | CONS ---
CONSULTATION REPORT: DATE OF CONSULT: 03/27/17 REQUESTING PHYSICIAN: Dr. Melo. CONSULTING SERVICE: Infectious Disease. REASON FOR CONSULT: Fever. IMPRESSION: Recent development of psychosis and now with a few days of high fevers over 40 degree Celsius. ALT today 260, C-reactive protein 26, CK was 1200 on the 5th, is trending down. She has been on a number of antipsychotic agents. I do think the most likely cause is variation of a neuroleptic malignant syndrome. It is difficult to assess on exam how rigid she is. She is not participating completely in the program here. I think it is unlikely she has had fever this long without otherwise being ill, and on influenza PCR he was negative. Chest x-ray was unremarkable without infiltrate. She had a brain MRI that was negative a month ago. RECOMMENDATION: 1. Other considerations include anti-NMDA receptor antagonist syndrome. So, we could consider lumbar puncture for a white count, glucose, protein and NMDA receptor antibody testing. 2. Stop Augmentin. HISTORY OF PRESENT ILLNESS: This is a 22-year-old woman who at the end of January was admitted to the hospital with first symptoms of psychosis. She was hospitalized here for a while and discharged on antipsychotics, readmitted in the end of February with recurrence of symptoms. She has been on Thorazine, lithium, had been on Abilify. She has been on the mental health unit for the last 10 days. She is having daily temperatures as high as 40 degree Celsius with tachycardia and some labile blood pressure. She had a chest x-ray as above. She had urine culture that grew contaminants in the end of February. She had an influenza PCR yesterday that was negative. Urinalysis yesterday was completely negative except for squamous cells. Today, she complains of occasional headache, no pain with head motion of neck stiffness. No joint pain or rash. Her appetite is okay. She does not have night sweats. She does not notice any pain with urination or diarrhea. PAST MEDICAL HISTORY: Acute psychosis. MEDICATIONS: 1. Tylenol. 2. Augmentin. 3. Benztropine. 4. Thorazine. 5. Diazepam. 6. Docusate. 7. [place]. ALLERGIES: No known drug allergies. FAMILY HISTORY: No recurrent infections or tuberculosis. 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 Her cousin is here visiting with her. She is a nonsmoker, no injection or drugs. REVIEW OF SYSTEMS: A 14-point review of systems was negative except as noted above. PHYSICAL EXAM: Vital Signs: Temperature is 38, heart rate 118, respiratory rate 16, blood pressure 107/65, oxygen saturation 100% on room air. General: She is awake, a little bit agitated. Neurologic: She is oriented x3. Follows all commands. Answers all questions. Moves all extremities. Cranial nerves II through XII intact. HEENT: There is no conjunctival hemorrhage. Oropharynx without lesions. Neck: Supple. Lymph Nodes: There is no cervical , supra-clavicular inguinal, axillary, or epitrochlear lymphadenopathy. Heart is regular and tachycardic without murmurs. Lungs are clear to auscultation bilaterally. Abdomen: Soft, nontender, nondistended. There are bowel sounds present. Skin: There is no rash or splinter hemorrhages. Musculoskeletal: There is no spine tenderness to palpation or joint synovitis. LABORATORY DATA: White blood cell count 5.8, hemoglobin 11, platelets 194. Creatinine is 0.7. ALT 260, up from 42 on the 6th, alk phos 147, CK 270, myoglobin 800 on the 6th. CRP 26 on the 8th. Please see impressions and recommendations as outlined above, which I have discussed with Dr. Melo. Thank you for asking me to see Ms. Boland in consultation. [id number]/[facility] #: [id number] MTDD
[2017-03-28 06:33] LABS: ABS Basophils 0 10^3/ul (0-0.2); ABS Eosinophils 0.5 10^3/ul (0-0.6); ABS Lymphocytes 0.9 10^3/ul (1.0-4.8); ABS Monocytes 0.6 10^3/ul (0-0.8); ABS Neutrophils 3.9 10^3/ul (1.5-7.7); ABS Nucleated RBC 0 10^3/ul; Eosinophil % 8.1 % (0-6); Hematocrit 30 % (35-47); Hemoglobin 10.1 g/dl (12.0-16.0); Lymphocyte % 15.4 % (25-47); Mean Corpuscular HGB Conc 34 g/dl (31-36); Mean Corpuscular Hemoglobin 32 pg (27-31); Mean Corpuscular Volume 95 fL (80-97); Mean Platelet Volume 9 um3 (7.4-10.4); Nucleated Red Blood Cells % 0; Platelet Count 210 10^3/ul (150-450); Red Blood Count 3.14 10^6/ul (4.0-5.4); Red Cell Distribution Width 13 % (10.5-15); White Blood Count 5.8 10^3/ul (3.5-10.8)
[2017-03-28 06:46] LABS: EGFR Non-African American 109.1 (>60)
[2017-03-28] MEDS: Benztropine TAB* 1 MG PO SCH ×2 (08:04→21:23)
[2017-03-28] MEDS: Docusate CAP* 100 MG PO SCH ×2 (08:04→21:24)
[2017-03-28] MEDS: Lithium Carbonate ER* 450 MG TAB.ER PO SCH ×2 (08:04→21:23)
[2017-03-28] MEDS: Vitamin THERAPEUTIC TAB PO SCH (08:05)
--- NOTE | 2017-03-28 09:53 | PN ---
Subjective Date of Service: 03/28/17 Interval History: Pt 's mental state is unchanged :still mumbling to herself, follows simple commands Objective Active Medications: Acetaminophen (Tylenol Tab*) 650 mg PO Q4H PRN PRN Reason: FEVER/PAIN Last Admin: 03/27/17 15:54 Dose: 650 mg Benztropine Mesylate (Cogentin Tab*) 1 mg PO BID [facility] Last Admin: 03/28/17 08:04 Dose: Not Given Chlorpromazine HCl (Thorazine Tab*) 100 mg PO Q4H PRN PRN Reason: AGITATION Chlorpromazine HCl (Thorazine Tab*) 200 mg PO BEDTIME [facility] Last Admin: 03/27/17 21:20 Dose: 200 mg Chlorpromazine HCl (Thorazine Tab*) 50 mg PO BID@12,17 [facility] Last Admin: 03/27/17 15:55 Dose: 50 mg Diazepam (Valium Tab(*)) 5 mg PO Q4H PRN PRN Reason: AGITATION Diazepam (Valium Tab(*)) 5 mg PO TID@12,17, [facility] Last Admin: 03/27/17 21:22 Dose: 5 mg Divalproex Sodium (Depakote Er Tab(*)) 500 mg PO DAILY@12 [facility] Docusate Sodium (Colace Cap*) 100 mg PO BID [facility] Last Admin: 03/28/17 08:04 Dose: Not Given Sodium Chloride (Ns 0.9% 1000 Ml*) 1,000 mls @ 125 mls/hr IV PER RATE [facility] Last Admin: 03/28/17 02:47 Dose: 125 mls/hr [place] Carbonate ([place] Carbonate Er Tab*) 450 mg PO BEDTIME [facility] Last Admin: 03/27/17 21:18 Dose: 450 mg [place] Carbonate ([place] Carbonate Er Tab*) 450 mg PO DAILY@09 [facility] Last Admin: 03/28/17 08:04 Dose: Not Given Multivitamins (Theragran Tab*) 1 tab PO DAILY [facility] Last Admin: 03/28/17 08:05 Dose: Not Given Vital Signs - 8 hr 03/28/17 03/28/17 03/28/17 03:46 08:00 08:04 Temperature 98.5 F Pulse Rate 98 95 Respiratory 16 12 18 Rate Blood Pressure 112/51 95/48 (mmHg) O2 Sat by Pulse 100 100 Oximetry 03/28/17 08:40 Temperature 100 F Pulse Rate Respiratory Rate Blood Pressure (mmHg) O2 Sat by Pulse Oximetry Oxygen Devices in Use Now: None Appearance: 22 yo F, mumbling to herself in NAD Eyes: No Scleral Icterus, PERRLA Ears/Nose/Mouth/Throat: NL Teeth, Lips, Gums, Mucous Membranes Moist Neck: NL Appearance and Movements; NL JVP, Trachea Midline Respiratory: Symmetrical Chest Expansion and Respiratory Effort, Clear to Auscultation Cardiovascular: NL Sounds; No Murmurs; No JVD, RRR Abdominal: NL Sounds; No Tenderness; No Distention, No Hepatosplenomegaly Lymphatic: No Cervical Adenopathy Extremities: No Edema, No Clubbing, Cyanosis Skin: No Rash or Ulcers, No Nodules or Sclerosis Neurological: NL Muscle Strength and Tone, - - no neck stiffness Result Diagrams: 03/28/17 06:15 03/28/17 06:15 Assess/Plan/Problems-Billing Assessment: 22 yo F with second episode of psychosis this year developed a fever /CPK/LFT elevation after 7 days on MHU. - Patient Problems (1) Psychosis Comment: cont Thorazine, although suspect thet the fever and CPK elevation may be due to antipsychotic meds and fever may be due to neuroleptic malignant syndrome. Placed a call to psychiatry to discuss further tx, awaiting a call back Due to elevated ammonia depakote dose was halved, may need to be stopped depending on psychiatry's opinion (2) Fever Comment: temp down to max 100.0 over night Appreciate ID consult. D/w Pt's cousin Markell ([phone]) the need for lumnbar pucture, explained the risks and benefits- she will call me back re: consent , after discussing it with p's parents. Markell is the only relative of pt in [facility], her mother is arriving from [place] in 2 days(she doesn't speak Jordanian). As per ID Augmentin was stopped and there is no need for antibiotic or antiviral tx for now. (3) LFT elevation Comment: improving, suspect due to psychiatric meds. Acute hepatitis panel neg. (4) DVT prophylaxis Comment: ambulation, low risk Status and Disposition: Inpatient
[2017-03-28] MEDS ORDERED: fentaNYL* 50 MCG/ML 2 ML VIAL (100 MCG VIAL) ONE (10:42)
[2017-03-28] MEDS ORDERED: Midazolam* 1 MG/ML 2 ML VIAL (2 MG) ONE (10:42)
[2017-03-28] MEDS ORDERED: Morphine INJ* 2 MG/ML 1 ML CARPUJECT IV PRN (10:49)
[2017-03-28] MEDS: Diazepam TAB(*) 5 MG PO SCH ×4 (11:13→23:10)
[2017-03-28] MEDS: Divalproex ER TAB(*) 500 MG PO SCH ×2 (11:14→11:56)
[2017-03-28] MEDS: chlorproMAZINE TAB* 50 MG PO SCH ×3 (11:14→16:14)
[2017-03-28] MEDS ORDERED: Naloxone* 0.4 MG/ML 1 ML VIAL IV PRN (11:41)
[2017-03-28] MEDS ORDERED: Divalproex ER TAB(*) 500 MG PO SCH (12:00)
[2017-03-28] MEDS ORDERED: Chloroprocaine 3%* 20 ML VIAL ONE (12:39)
--- NOTE | 2017-03-28 14:23 | CONSULT ---
Consult Consult: ANESTHESIOLOGY CONSULT & DIAGNOSTIC LUMBAR PUNCTURE HISTORY OF PRESENT ILLNESS: I was asked by Dr. Melo to consult on this 22 year old woman. She was first admitted in January 2017 with symptoms of psychosis, and treated with multiple antipsychotic medications. She was subsequently hospitalized for recurrence of her symptoms, has been on the mental health unit for about 10 days, and has been having daily fevers as high as 40 degrees Celsius. Infectious disease evaluation by Dr. Hernandez has found no source of the fever. MRI of brain one month ago was negative. Probable diagnosis is neuroleptic malignant syndrome, but also possible is anti-NMDA receptor antagonist syndrome, which could be confirmed or ruled out by diagnostic lumbar puncture. PAST MEDICAL HISTORY: Negative. ALLERGIES: She has no drug allergies. PHYSICAL EXAM: Patient is intermittently drowsy then agitated. When transported to OR she was initially agitated, then calmed down and began singing. Skin is warm & dry. Examination of spine shows good landmarks, good mobility, and nontender to palpation. ASSESSMENT / PLAN: I agree that Diagnostic Lumbar Puncture is indicated for diagnosis of unexplained fevers in this patient. Because of the patient's mental status, she will require intravenous anxiolysis and analgesia for the procedure. Telephone consent was obtained from the patient's cousin, Markell Johnson, the patient's closest living relative in the [place] The procedure, expected benefits, and expected risks and discomforts were explained and questions were answered. PROCEDURE: Analgesia and anxiolysis was achieved with Fentanyl 50 mcg and Midazolam 1 mg given IV in divided doses. Patient was assisted to the sitting position. Chloraprep was applied to the back and allowed to dry. 1% Lidocaine anesthesia injected. 25G Pencan needle placed at L4-5. Clear fluid was obtained on the first attempt and sent to Lab: Tube #1 1 ml Tube #2 1 ml Tube #3 4 ml Tube #4 1 ml Patient tolerated procedure well. BP dropped transiently to 80s when sitting, but returned to baseline when back in bed.
--- NOTE | 2017-03-28 17:19 | PN ---
Progress Note - Progress Note Date of Service: 03/28/17 Note: Saw patient on bed side along with Dr. Melo and discussed plan of actions. Juice has been doing better physically per Dr. Melo although continues have disorganization of thoughts and behaviors which per all reports are easily re- directable. She is still sedated and on IV fluid. LP done, fluid analyzed and appears normal. Serum Ammonia and LFT still high. CPK came down to normal. Plan is to discontinue Depakote for now, bring her back to [facility] when medically cleared and manage he here. May consider different anti-psychotic if needed.
[2017-03-28] MEDS: chlorproMAZINE TAB* 100 MG PO SCH (20:07)
[2017-03-28] MEDS: Diazepam TAB(*) 5 MG PO PRN (20:07)
[2017-03-29 06:02] LABS: Hematocrit 32 % (35-47); Hemoglobin 10.8 g/dl (12.0-16.0); Mean Corpuscular HGB Conc 34 g/dl (31-36); Mean Corpuscular Hemoglobin 32 pg (27-31); Mean Corpuscular Volume 95 fL (80-97); Mean Platelet Volume 8 um3 (7.4-10.4); Platelet Count 241 10^3/ul (150-450); Red Blood Count 3.36 10^6/ul (4.0-5.4); Red Cell Distribution Width 13 % (10.5-15); White Blood Count 5.6 10^3/ul (3.5-10.8)
[2017-03-29 06:09] LABS: ABS Basophils 0 10^3/ul (0-0.2); ABS Eosinophils 0.6 10^3/ul (0-0.6); ABS Lymphocytes 1.6 10^3/ul (1.0-4.8); ABS Monocytes 0.8 10^3/ul (0-0.8); ABS Neutrophils 2.5 10^3/ul (1.5-7.7); ABS Nucleated RBC 0 10^3/ul; Eosinophil % 10.6 % (0-6); Lymphocyte % 29.1 % (25-47); Nucleated Red Blood Cells % 0.1
[2017-03-29 06:16] LABS: EGFR Non-African American 128.8 (>60)
[2017-03-29] MEDS: Diazepam TAB(*) 5 MG PO PRN (07:17)
[2017-03-29] MEDS: Benztropine TAB* 1 MG PO SCH (07:57)
[2017-03-29] MEDS: Lithium Carbonate ER* 450 MG TAB.ER PO SCH (07:57)
[2017-03-29] MEDS: Vitamin THERAPEUTIC TAB PO SCH (07:57)
[2017-03-29] MEDS: Docusate CAP* 100 MG PO SCH (07:57)
[2017-03-29] MEDS: Diazepam TAB(*) 5 MG PO SCH ×2 (10:46→17:01)
[2017-03-29] MEDS: chlorproMAZINE TAB* 50 MG PO SCH ×2 (10:46→17:00)
[2017-03-29 18:48] VITALS: BP 107/68
--- NOTE | 2017-03-30 07:09 | TRS ---
CC: Dr. Deep Gamino, Psychiatry; Dr. Berger, Psychiatry; Dr. Urbina, Anesthesiology; Dr. Hernandez, Infectious Diseases * DISCHARGE/TRANSFER SUMMARY: DATE OF ADMISSION: 03/27/17 DATE OF DISCHARGE AND TRANSFER: Back to our psychiatric unit at [facility], 03/29/17. DISCHARGE DIAGNOSES: 1. Elevation of liver function tests, CPK elevation, as well as fever likely due to a variant of neuroleptic malignant syndrome. 2. Elevated ammonia level, likely Depakote side effect. 3. Acute psychosis. MEDICATIONS AT DISCHARGE: Include: 1. Cogentin 1 mg b.i.d. 2. Thorazine 100 mg q.4 p.r.n. 3. Thorazine 200 mg at bedtime and 50 mg b.i.d. 4. Valium 5 mg every 4 hours p.r.n. and 5 mg 3 times a day. 5. Colace 100 mg b.i.d. 6. [place] carbonate ER 450 mg b.i.d. 7. Multivitamin 1 tablet daily. CONSULTATIONS DURING THE HOSPITAL STAY: Included: 1. Dr. Urbina from Anesthesiology. 2. Dr. Hernandez from Infectious Diseases. PROCEDURES: Included lumbar puncture performed under anesthesia by Dr. Urbina on 03/28/17. LABORATORY DATA AND STUDIES PERFORMED DURING THE HOSPITAL STAY: Included: On 03/29/17, white blood cell count of 5.6, hemoglobin of 10.8, hematocrit of 32, platelets of 241. Sodium 138, potassium 4.0, chloride 109, carbon dioxide 26, BUN 6, and creatinine 0.58. Liver function tests showed AST of 26, ALT of 107, alkaline phosphatase of 148. Ammonia of 64. The patient's TSH was noted to be 0.6, free T4 of 1. Lumbar puncture: CSF results obtained on 03/28/17 showed colorless clear fluid , wbc's 2 total, red blood cells 0, neutrophils 0, lymphocytes 72%, monocytes 28 %, glucose of 60, and protein of 41. Culture of the cerebrospinal fluid is negative to date. Other microbiology studies included blood cultures obtained on 03/26/17, which was unremarkable. The patient's influenza test on 03/26/17 was negative. On , the patient's urine culture grew 25,000 to 50,000 colonies of Corynebacterium xerosis, which was likely a contamination. HOSPITALIZATION COURSE: Juice Boland is a 22-year-old female, who has had second episode of psychosis this year. She was being treated at our mental health unit for 7 days until she developed fever, elevation of liver function tests, and CPK elevation. Due to that, she was transferred to medical floor for further evaluation. She was transferred on 03/27/17. She was seen by Dr. Hernandez in consultation, who recommended lumbar puncture. Dr. Hernandez also recommended stopping her empiric antibiotics that were started a day earlier. Her Augmentin was stopped. The patient had a lumbar puncture performed on 03/28, which was basically unremarkable. The NMDA receptor antibody testing is still pending at the time of dictation as well as the patient's CSF cultures . Preliminary results are all negative though. Over the course of the patient's hospital stay on the medical floor, her liver function tests began to normalize and her CPK elevation normalized. The patient was noted to have an increased ammonia level and she was treated with a dose of lactulose prior to her discharge back to mental health unit. We suspected that the patient likely had a fever and CPK elevation due to neuroleptic malignant syndrome. The patient's LFT elevation and ammonia level elevation was likely due to Depakote that was stopped. PHYSICAL EXAMINATION: Of this patient at the time of transfer back to mental health unit included: Blood pressure of 111/86, heart rate of 98 and regular, respiratory rate 24, oxygen saturation 100% on room air, and temperature 98.8. General Appearance: This is a very pleasant 22-year-old female, who is in no acute distress. The patient occasionally speaks Mandarin, occasionally speaks Kazakh. The patient is conversational but most of the time, she screams and mumbles in Mandarin. She is able to follow simple commands, but otherwise walks aimlessly around the room talking to herself. HEENT: Head atraumatic and normocephalic. Eyes are pupils are equal and reactive to light and accommodation. Oropharynx clear. Mucosa moist. Neck: Supple. No JVD, no bruits bilaterally. Cardiovascular: Regular rate and rhythm. No murmur. Respiratory: Clear to auscultation bilaterally. Abdomen: Soft and nontender. Bowel sounds present in all 4 quadrants. Extremities: There is no edema. Pulses are +2 bilaterally. No clubbing or cyanosis. Neuro Evaluation: Speech is clear. Cranial nerves II through XII grossly intact. Motor strength is 5/5 bilaterally. Please note this is a discharge summary of the patient's hospitalization. Please refer to further medical details. TIME SPENT: Approximately 40 minutes was spent on the patient's discharge. [id number]/[facility] #: [id number] [facility]
[2017-03-30 17:58] LABS: CSF VDRL Negative (Negative)
== END 2017-03-29 19:25 | DRG 92 ==
LOC: MED 13:56 → OBSVTOIN 13:56
PROVIDERS: ADMIT Internal Medicine; ATTEND Internal Medicine
PROC: 009U3ZX Drainage of Spinal Canal, Percutaneous Approach, Diagnostic (ICD-10-PCS; principal; 2017-03-28 11:00)
DX: G21.0 Malignant neuroleptic syndrome (principal); F23 Brief psychotic disorder; R94.5 Abnormal results of liver function studies; R82.5 Elevated urine levels of drugs, medicaments and biological substances; T42.6X5A Adverse effect of other antiepileptic and sedative-hypnotic drugs, initial encounter; Y92.9 Unspecified place or not applicable; Z79.1 Long term (current) use of non-steroidal anti-inflammatories (NSAID); Z79.899 Other long term (current) drug therapy
CPT/HCPCS: 36415; 62270; 80053; 80164; 80178; 82140; 82550; 82945; 84157; 84439; 84443; 84481; 85025; 86140; 86592; 87070; 87205; 87529; 89051; A9270-GY; J2250; J2400; J3010

== ENCOUNTER 2017-03-29 19:30 | Inpatient (IN) | payer OTHER ==
[2017-03-29] MEDS ORDERED: Al Hydrox/Mg Hydrox/Simet LIQ* 30 ML UDC PO PRN (21:15)
[2017-03-29] MEDS ORDERED: chlorproMAZINE TAB* 100 MG PO PRN (21:20)
[2017-03-29] MEDS ORDERED: chlorproMAZINE TAB* 200 MG PO SCH (21:30)
[2017-03-29] MEDS: Docusate CAP* 100 MG PO SCH (21:32)
[2017-03-29] MEDS: Benztropine TAB* 1 MG PO SCH (21:32)
[2017-03-29] MEDS: Lithium Carbonate ER* 450 MG TAB.ER PO SCH (21:32)
[2017-03-29] MEDS: Diazepam TAB(*) 5 MG PO SCH (21:38)
[2017-03-29] MEDS ORDERED: Polyethylene Glycol 3350* 17 GM PACKET PO ONE (22:00)
[2017-03-29] MEDS ORDERED: QUEtiapine TAB* 100 MG PO ONE (23:30)
[2017-03-29] MEDS ORDERED: Sertraline* 100 MG TAB ONE (23:38)
[2017-03-30] MEDS: Diazepam TAB(*) 5 MG PO PRN ×2 (00:15→06:22)
[2017-03-30] MEDS: Acetaminophen TAB* 325 MG PO PRN ×3 (06:08→23:58)
[2017-03-30] MEDS: Lithium Carbonate ER* 450 MG TAB.ER PO SCH ×2 (10:01→20:38)
[2017-03-30] MEDS: Vitamin THERAPEUTIC TAB PO SCH (10:01)
[2017-03-30] MEDS: Docusate CAP* 100 MG PO SCH ×2 (10:02→20:39)
[2017-03-30] MEDS: Benztropine TAB* 1 MG PO SCH ×2 (10:02→20:40)
[2017-03-30] MEDS: chlorproMAZINE TAB* 50 MG PO SCH ×3 (11:41→16:46)
[2017-03-30] MEDS: Diazepam TAB(*) 5 MG PO SCH ×4 (11:41→20:22)
--- NOTE | 2017-03-30 12:44 | PN ---
Subjective - Subjective Subjective: Psychiatric Attending Progress Note: Patient returned from medicine yesterday as a transfer. This 22 yo was readmitted to the [facility] 2 weeks ago with acute yahaira with psychotic symptoms. pateint had been discharged from our unit one month ago after a two weeks stay for first onset manic psychosis. during this last admission patient was not responding to use of multiple antpsychotic medication trials. On hospital day # 10 she developed fever of 100.4 which subsequently spiked to above 102. patient had elevated CPK and bilateral basilar infiltrates suspicious for pneumonia or atelectasis. patient was transferred to medical floor. ID consult did not feel patient had infection. question of NMS spectrum disorder was raised. patient developed mildly incrased LfT's likely secondary to initiation of depakote. patient had LP which was unremarkable. she was transferred back to psychiatry after 2 days on medicine. Today patient is complaining of left ear pain. Patient has been afebrile today. Mother came from [place] today and has been visiting with patient all afternoon. 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 impression: bipolar manic with psychotic features s/p acute infection versus variant of NMS (i doubt this and feel pneumonia is much more likely even given the normal wbc count). Plan: doing better than when she was admitted. patient is no longer agresive or agitated. psycho motor behavior has slowed down quite a bit. patient is more coherent. she had greater clarity of thought and has periods when she can hold a conversation in a linear fashion. I will d/c thorazine as patient's bp has been running low 98/70 and thorazine is not best choice for someone with BP in the low range. will also lower valium from 5 TId to 2 mg qhs Start Invega 1.5 mg QHS. this is better choice as it can also be given as an BRANTLEY increase lithium to 675 mg BID. (level was 0.6 on 450 mg BID). restart Amoxicillin for presumed otitis media. will have Dr. Melo examine patient's ear in am. Plan - Plan Treatment Plan: Name: MANDY SAMAYOA Birthdate: 1995 [id number]
[2017-03-30] MEDS ORDERED: Diazepam TAB(*) 2 MG PO ONE (16:50)
[2017-03-30] MEDS ORDERED: Diazepam TAB(*) 2 MG ONE (16:52)
--- NOTE | 2017-03-30 17:00 | PN ---
Plan - Plan Treatment Plan: Name: MANDY SAMAYOA Birthdate: 1995 [id number] Medications: Current Medications Acetaminophen (Tylenol Tab*) 650 mg PO Q4H PRN PRN Reason: PAIN or TEMP > 101 F Last Admin: 03/30/17 16:49 Dose: 650 mg Al Hydrox/Mg Hydrox/Simethicone (Maalox Plus*) 30 ml PO Q4H PRN PRN Reason: INDIGESTION Benztropine Mesylate (Cogentin Tab*) 0.5 mg PO BID [facility] Diazepam (Valium Tab(*)) 5 mg PO TID@1200,1700,2100 [facility] Last Admin: 03/30/17 16:46 Dose: Not Given Diazepam (Valium Tab(*)) 5 mg PO Q4H PRN PRN Reason: AGITATION Last Admin: 03/30/17 06:22 Dose: 5 mg Diazepam (Valium Tab(*)) 2 mg PO BEDTIME [facility] Docusate Sodium (Colace Cap*) 100 mg PO BID [facility] Last Admin: 03/30/17 10:02 Dose: 100 mg Lactulose (Lactulose*) 30 ml PO BEDTIME [facility] Last Admin: 03/30/17 06:12 Dose: Not Given [place] Carbonate ([place] Carbonate Er Tab*) 675 mg PO BID [facility] Multivitamins (Theragran Tab*) 1 tab PO DAILY [facility] Last Admin: 03/30/17 10:01 Dose: 1 tab Paliperidone (Invega Tab*) 1.5 mg PO BEDTIME [facility]
[2017-03-30] MEDS: Amoxicillin PO (*) 500 MG CAP PO SCH ×2 (18:09→20:40)
[2017-03-30] MEDS: Diazepam TAB(*) 2 MG PO SCH ×2 (20:39→21:10)
[2017-03-30] MEDS ORDERED: PALIPERIDONE 1.5 MG PO SCH (21:00)
[2017-03-31] MEDS: Diazepam TAB(*) 5 MG PO PRN (00:19)
--- NOTE | 2017-03-31 02:43 | PN ---
Progress Note - Progress Note Date of Service: 03/31/17 Note: Paged by Dr. Gamino as patient would not awake shortly after getting valium. Vitals normal. On my arrival, patient had moved to the center room. Awakes easily was able to look at me and say she was scared of me. No further interventions indicated.
[2017-03-31] MEDS: Docusate CAP* 100 MG PO SCH ×2 (09:04→20:10)
[2017-03-31] MEDS: Vitamin THERAPEUTIC TAB PO SCH (09:04)
[2017-03-31] MEDS: Benztropine TAB* 1 MG PO SCH (09:04)
[2017-03-31] MEDS: Lithium Carbonate ER* 450 MG TAB.ER PO SCH ×2 (09:05→20:10)
[2017-03-31] MEDS: Amoxicillin PO (*) 500 MG CAP PO SCH ×3 (09:07→20:12)
[2017-03-31] MEDS ORDERED: Ibuprofen TAB* 200 MG PO ONE (10:38)
[2017-03-31] MEDS ORDERED: Acetaminophen TAB* 325 MG PO ONE (10:39)
[2017-03-31] MEDS ORDERED: Ibuprofen TAB* 400 MG PO ONE (11:10)
--- NOTE | 2017-03-31 11:11 | PN ---
Subjective - Subjective Subjective: Psychiatric Attending Progress NOte: Early Thursday Morning Patient required palcement in open quiet room due to agitation, aggression toward staff. at that time she remained disorganized, chanting grandiose delusions in martiniquais. Patient slept on and off most of the day thursday. Patient received no medication yesterday (neither chlorpromazine or valium) as she had BP of 98/72 and was lethargic and sleeping throughout the day. Last night Patient slept from 1AM till 6 AM this morning. This was the most sleep patient has had since being rehospitalized. significant improvement in mental status today. patient not labile today no agitation. psychomotor behavior is beginning to slow. she is more linear she has better eye contact and she more organized. She is able to respond appropriately and she is better related. MOTHER ARRIVED TODAY FROM [place] AND HAS BEEN AT JUICE'S SIDE SINCE EARLY THIS MORNING. Juice appears to be responding very positively to seeing her mother as opposed to last admission when mother's presence was agitating her. Per cousin who is translating into [place]ian what juice has been verbalizing in Irish, she continues to be preoccupied with past boyfriends who she is no longer in a relatinship with. she continues to believe that they have contacted her and even that they are here in the hospital and are here to help her get better and return home. furthermore. she has made statements about the quiet room being similar to a room that the [place] government uses to punish traitors. 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 none of these beliefs are based in truth. She continues to have pressured speech insight and judgment are very poor Vitals today: Vital Signs: Temp Pulse Resp BP Pulse Ox 98.6 F 105 16 100/63 100 03/31/17 08:25 03/31/17 08:25 03/31/17 13:24 03/31/17 08:25 03/31/17 08:25 Patient did have low grade fever of 99.9 yesterday at 6 PM Labs: Laboratory Last Values COMPLAINING OF LEFT EAR PAIN Total Creatine Kinase 32 U/L (10-223) 03/30/17 08:20 PE: patient has maculopapular rash on arms, and back. non pruritic Left TM intact no airfluid level, no injection, no evidence of maceration of outer ear canal small pimple observed on left tragus Impression: bipolar manic with psychotic features s/p partial symptom NMS. currently afebrile. will hold on starting Invega. patient's mental status is improving with lithium and valium alone. left ear pain: normal physical exam. maculopapular rash. possibly drug rash but doubt. will stop amoxicillin as there is no indication of infection (started it empirically for possible otitis media) Plan - Plan Treatment Plan: Name: JUICE SAMAYOA Birthdate: 1995 [id number] Medications: Current Medications Acetaminophen (Tylenol Tab*) 650 mg PO Q4H PRN PRN Reason: PAIN or TEMP > 101 F Last Admin: 03/30/17 23:58 Dose: 650 mg Al Hydrox/Mg Hydrox/Simethicone (Maalox Plus*) 30 ml PO Q4H PRN PRN Reason: INDIGESTION Amoxicillin (Amoxicillin Po (*)) 500 mg PO TID@,, [facility] Last Admin: 03/31/17 09:07 Dose: 500 mg Diazepam (Valium Tab(*)) 5 mg PO Q4H PRN PRN Reason: AGITATION Last Admin: 03/31/17 00:19 Dose: 5 mg Diazepam (Valium Tab(*)) 5 mg PO BEDTIME [facility] Diazepam (Valium Tab(*)) 2 mg PO BID@ [facility] Last Admin: 03/31/17 11:20 Dose: 2 mg Docusate Sodium (Colace Cap*) 100 mg PO BID [facility] Last Admin: 03/31/17 09:04 Dose: 100 mg Lactulose (Lactulose*) 30 ml PO BEDTIME [facility] Last Admin: 03/30/17 21:10 Dose: Not Given [place] Carbonate ([place] Carbonate Er Tab*) 675 mg PO BID [facility] Last Admin: 03/31/17 09:05 Dose: 675 mg Multivitamins (Theragran Tab*) 1 tab PO DAILY [facility] Last Admin: 03/31/17 09:04 Dose: 1 tab
[2017-03-31] MEDS: Diazepam TAB(*) 2 MG PO SCH ×2 (11:20→16:45)
[2017-03-31] MEDS: Diazepam TAB(*) 5 MG PO SCH (20:10)
[2017-04-01] MEDS: Acetaminophen TAB* 325 MG PO PRN (00:05)
[2017-04-01] MEDS: Lithium Carbonate ER* 450 MG TAB.ER PO SCH ×2 (09:24→20:37)
[2017-04-01] MEDS: Docusate CAP* 100 MG PO SCH ×2 (09:25→20:36)
[2017-04-01] MEDS: Vitamin THERAPEUTIC TAB PO SCH (09:25)
[2017-04-01] MEDS: Amoxicillin PO (*) 500 MG CAP PO SCH ×3 (09:27→20:39)
--- NOTE | 2017-04-01 11:57 | PN ---
Subjective - Subjective Subjective: Psychiatric Attending Progress Note: Significant gains in mental status over the past 48 hours. these include improved relatedness; remission of agitation, agression, and severe regression; increased capacity for coherent, linear, relevant communication. Patient continues to be hyperverbal with pressured, loud speech. She continues to have affective lability (crying to laughing), tangential thought processes. Thought content reveals patient is intermittently responding to internal stimuli by laughing or whispering in belarusian to herself. grandiosity also present mood: is clearly mostly elated with periods of irritability or crying patient continues to have inadequate sleep of 3 to 5 hours per night. insight: limited. judgment: impaired by psychosis. patient is Alert and oriented to month, year, and day of week but not the date. she knows where she is and knew my name Vitals Stable: afebrile today 98.3 HR 90 BP 109/67 O2 sat 100 percent patient still complaining of "water in her left ear" rash seen yesterday has dissipated and is barely visible. Mother present with patient during today's interview. patient translated our discussion into mandarin so mother could understand. Impression: bipolar yahaira severe with psychotic features s/p unexplained fever and elevation of CPK and LFT's differential NMS versus Depakote induced hepatitis. it is unusual to have NMS in the absence of leukocytoisis but possible (elevated wbc occurs in 70 to 98 percent of cases. Patient would benefit from neuroleptic as add on to lithium. However, recurrence of NMS is greatest in first two weeks after cessation of neuroleptics also concomittant use of lithium increases risk of NMS. Plan: will be conservative and continue to observe for further improvement in mental status with valium and lithium lithium level, cbc, ck, lft's, cmp, tft's to be drawn in AM amoxicillin 500 mg TID for total of 7 days then will d/c will add benadryl at night for sleep family meeting tomorrow with judith's cousin and mother Plan - Plan Treatment Plan: Name: JUDITH SAMAYOA Birthdate: 1995 [id number] Medications: Current Medications Acetaminophen (Tylenol Tab*) 650 mg PO Q4H PRN PRN Reason: PAIN or TEMP > 101 F Last Admin: 04/01/17 00:05 Dose: 650 mg Al Hydrox/Mg Hydrox/Simethicone (Maalox Plus*) 30 ml PO Q4H PRN PRN Reason: INDIGESTION Amoxicillin (Amoxicillin Po (*)) 500 mg PO TID@,, [facility] Last Admin: 04/01/17 09:27 Dose: 500 mg Diazepam (Valium Tab(*)) 5 mg PO Q4H PRN PRN Reason: AGITATION Last Admin: 03/31/17 00:19 Dose: 5 mg Diazepam (Valium Tab(*)) 5 mg PO BEDTIME [facility] Last Admin: 03/31/17 20:10 Dose: 5 mg Diazepam (Valium Tab(*)) 2 mg PO BID@ [facility] Last Admin: 04/01/17 14:34 Dose: 2 mg Docusate Sodium (Colace Cap*) 100 mg PO BID [facility] Last Admin: 04/01/17 09:25 Dose: 100 mg Lactulose (Lactulose*) 30 ml PO BEDTIME [facility] Last Admin: 03/31/17 20:13 Dose: 30 ml [place] Carbonate ([place] Carbonate Er Tab*) 675 mg PO BID [facility] Last Admin: 04/01/17 09:24 Dose: 675 mg Multivitamins (Theragran Tab*) 1 tab PO DAILY [facility] Last Admin: 04/01/17 09:25 Dose: 1 tab
--- NOTE | 2017-04-01 13:10 | PN ---
[facility]: Group Therapy Note - Service Type Service Type: [id number] Group Psychotherapy - Cognitive Behavioral Therapy (CBT): Patient presents with high volume of speech that impresses as being coherent within the context of self-report, but is tangential and off topic in group context. Concerns regarding disorganization of thought are apparent. Juice presented with psychomotor agitation at times, and was hyperverbal through most of the group.
[2017-04-01] MEDS: Diazepam TAB(*) 2 MG PO SCH ×2 (14:34→17:33)
[2017-04-01] MEDS: Diazepam TAB(*) 5 MG PO SCH (20:37)
[2017-04-02 06:39] LABS: EGFR Non-African American 103.7 (>60)
[2017-04-02] MEDS: Vitamin THERAPEUTIC TAB PO SCH (08:41)
[2017-04-02] MEDS: Docusate CAP* 100 MG PO SCH ×2 (08:42→19:55)
[2017-04-02] MEDS: Lithium Carbonate ER* 450 MG TAB.ER PO SCH ×2 (08:42→19:54)
[2017-04-02] MEDS: Amoxicillin PO (*) 500 MG CAP PO SCH ×3 (08:43→19:55)
--- NOTE | 2017-04-02 10:15 | PN ---
Subjective - Subjective Subjective: Psychiatric Attending progress Note: family meeting took place today cousin, mother, myself and jens grossman bilingual social worker present family updated about patient's condition. explained that she was improving from admission mental status but explained that she was showing clear signs currently of yahaira including elated mood, disorganized thoughts, grandiose delusons (she is going to get ), insomnia mood lability. cousing translated. family has consulted with psychiatrists back in [place]. Mother expressed plan to take Mandy back to [place] when she was stable enough to be discharged. i explained that she is not yet stable for discharge. also explained that antipsychotics may have caused NMS although this is not completely clear. told mother that I was holding off on antipsychotics for a few more days until abnormal lab values returned to normal. I shared that if yahaira persisted I would likely reintroduce antipsychotic medication as a low dose and increase slowly to target manic symptoms. patient continues to complain of left ear pain she remains afebrile Current vitals today: Vital Signs: Temp Pulse Resp BP Pulse Ox 97.6 F 85 16 110/70 99 04/02/17 07:28 04/02/17 07:28 04/02/17 14:18 04/02/17 07:28 04/02/17 07:28 MSE: patient unable to stay with conversation. she interrupted multiple times either by laughing excessively or at one point wailing for no reason. still making delusional statements such as "I'm gonna get " still crying out intermittently with irrelevant statements. needs redirection by staff mood: manic affect labile alert and oriented to month and year today Labs reviewed and show liver enzymes have come down, ck has come down, alk phosphatase remains elevated, ammonia remains elevated. I spoke with Dr. Cornejo hospitalist in order to ask his opinion about whether patient's illness represented NMS in his opinion. i do not feel patient met criteria especially given lack of leukocytosis and absence of muscle rigidity. Dr. Cornejo agrees that patient' s symptoms do not appear consistent with NMS. He agreed to evaluate patient's left ear pain Impression: bipolar manic with psychotic features probable depakote induced hepatitis versus NMS (less likely) patient remains quite ill and in need of addition of neuroleptic medication to treat manic psychosis Plan: Will add seroquel 25 mg QHS and titrate very slowly while closely observing for any signs of fever, autonomic instability, rigidity. will also follow labs closely (ie. alk phos, myoglobin, ast/alt,ck, ammonia) continue lithium CR 675 mg BId continue valium 2 mg BId and 5 mg QHS Plan - Plan Treatment Plan: Name: MANDY SAMAYOA Birthdate: 1995 [id number] Medications: Current Medications Acetaminophen (Tylenol Tab*) 650 mg PO Q4H PRN PRN Reason: PAIN or TEMP > 101 F Last Admin: 04/01/17 00:05 Dose: 650 mg Al Hydrox/Mg Hydrox/Simethicone (Maalox Plus*) 30 ml PO Q4H PRN PRN Reason: INDIGESTION Amoxicillin (Amoxicillin Po (*)) 500 mg PO TID@,, [facility] Last Admin: 04/02/17 08:43 Dose: 500 mg Diazepam (Valium Tab(*)) 5 mg PO Q4H PRN PRN Reason: AGITATION Last Admin: 03/31/17 00:19 Dose: 5 mg Diazepam (Valium Tab(*)) 5 mg PO BEDTIME [facility] Last Admin: 04/01/17 20:37 Dose: 5 mg Diazepam (Valium Tab(*)) 2 mg PO BID@12,17 [facility] Last Admin: 04/01/17 17:33 Dose: 2 mg Docusate Sodium (Colace Cap*) 100 mg PO BID [facility] Last Admin: 04/02/17 08:42 Dose: 100 mg Lactulose (Lactulose*) 30 ml PO BEDTIME [facility] Last Admin: 04/01/17 20:36 Dose: 30 ml [place] Carbonate ([place] Carbonate Er Tab*) 675 mg PO BID [facility] Last Admin: 04/02/17 08:42 Dose: 675 mg Multivitamins (Theragran Tab*) 1 tab PO DAILY [facility] Last Admin: 04/02/17 08:41 Dose: 1 tab
[2017-04-02] MEDS: Diazepam TAB(*) 2 MG PO SCH ×2 (11:51→16:27)
[2017-04-02] MEDS ORDERED: Bisacodyl EC TAB* 5 MG PO ONE (14:06)
[2017-04-02] MEDS ORDERED: Diazepam INJ (NF) 5 MG/ML 10 ML VIAL (50 MG TOTAL) IM ONE (14:12)
[2017-04-02] MEDS ORDERED: Diazepam TAB(*) 5 MG PO ONE (14:16)
[2017-04-02] MEDS ORDERED: Diazepam TAB(*) 5 MG ONE (14:17)
[2017-04-02] MEDS ORDERED: Ibuprofen TAB* 600 MG PO PRN (14:43)
[2017-04-02] MEDS: Diazepam TAB(*) 5 MG PO SCH (19:56)
[2017-04-02] MEDS: Diazepam TAB(*) 5 MG PO PRN (19:57)
[2017-04-02] MEDS ORDERED: Polyethylene Glycol 3350* 17 GM PACKET PO PRN (20:20)
[2017-04-02] MEDS ORDERED: QUEtiapine TAB* 25 MG PO SCH (21:00)
[2017-04-03] MEDS: Acetaminophen TAB* 325 MG PO PRN ×3 (00:15→23:51)
[2017-04-03] MEDS: Diazepam TAB(*) 5 MG PO PRN (01:30)
[2017-04-03] MEDS ORDERED: Sodium Phosphate ADULT ENEMA* 118 ml bottle ONE (01:49)
[2017-04-03] MEDS: Vitamin THERAPEUTIC TAB PO SCH (09:36)
[2017-04-03] MEDS: Amoxicillin PO (*) 500 MG CAP PO SCH (09:36)
[2017-04-03] MEDS: Docusate CAP* 100 MG PO SCH ×2 (09:36→21:15)
[2017-04-03] MEDS: Lithium Carbonate ER* 450 MG TAB.ER PO SCH ×2 (09:36→21:15)
--- NOTE | 2017-04-03 10:44 | PN ---
Subjective - Subjective Subjective: PSYCHIATRIC ATTENDING PROGRESS NOTE: Patient has been preoccupied with being constipated over past 24 hours. perseverating over having retained stool that she cannot expel. makes bizarre statements such as "I have asshole pain". She has received Dulxolax, miralax, and a fleets enema over the past 24 hours. she continues to focus on being constipated Patient continues to be highly regressed and bizarre. she talks in incomplete sentences like a baby she is highly labile and goes from laughing to crying. very low frustration tolerance. poor impulse control thought process perseverative, tangential. poorly organized thought content: somatic and grandiose delusions, often internally preoccuied. no evidence of hallucinations insight poor judgment severely impaired Patient is fully alert but not oriented due to psychosis Physical exam: abdominal exam: soft no guarding. distended. no rebound patient points to inguinal area stating she has discomfort patient has normal bowel sounds. no mass palpable no hepatosplenomegaly appreciated. impression: Bipolar yahaira with psychotic features patient has low free t4 and low t4 with elevated thyroid peroxidase antibodies she likely has autoimmune thyroid process. hypothyroidism may also explain her constipation. patient has somatic delusions (initially about her ear and now about being constipated) patient did have bowel moveemnt today. she is not eating enough solid food to warrant daily formed stool Plan: increase Seroquel to 50 mg tonight, 75 mg tomorrow and then 100 mg on thursday evening continue lithium and valium unchanged will get KUB to check to see if patient is impacted otherwise will repeat miralax x 1 tonight start synthroid 25 ug daily
[2017-04-03] MEDS: Diazepam TAB(*) 2 MG PO SCH ×2 (12:02→16:10)
[2017-04-03] MEDS ORDERED: Polyethylene Glycol 3350 BTL* 238 GM BTL PO ONE (14:43)
--- NOTE | 2017-04-03 15:09 | RAD ---
HISTORY: Abdominal pain, distention COMPARISONS: None VIEWS: Frontal supine and upright views of the abdomen. FINDINGS: BOWEL: There is a nonspecific bowel gas pattern with nondilated loops of small bowel in the midabdomen. There are multiple differential air-fluid levels. There is large amount of stool throughout the colon. CALCULI: There are no abnormal calculi. BONES AND SOFT TISSUES: There are no osseous abnormalities. OTHER FINDINGS: The lung bases are clear. There is no subphrenic gas. IMPRESSION: LARGE AMOUNT STOOL THROUGHOUT THE COLON WITH DIFFERENTIAL AIR-FLUID LEVELS IN THE SMALL BOWEL. THE DIFFERENTIAL INCLUDES OBSTIPATION VERSUS EARLY SMALL BOWEL OBSTRUCTION. RECOMMEND ATTENTION ON FOLLOW-UP IMAGING.
[2017-04-03] MEDS ORDERED: Diazepam TAB(*) 5 MG PO ONE (16:00)
--- NOTE | 2017-04-03 16:22 | PN ---
Subjective - Subjective Subjective: Psychiatric Attending progress note: KUB of ABDOMEN REVEALS STOOL THOROUGHOUT COLON AND DIFFERENTIAL AIR FLUID LEVELS IN SMALL COLON. IMPRESSION FROM XRAY IS OBSTIPATION VERSUS EARLY SMALL COLON OBSTRUCTION. Vitals: Vital Signs: Temp Pulse Resp BP Pulse Ox 98.8 F 91 16 118/74 100 04/03/17 08:14 04/03/17 08:14 04/03/17 13:24 04/03/17 08:14 04/03/17 08:14 I called and spoke with Dr. Ramirez, the accountant controller surgeon about Juice's symptoms, exam and abdominal xray. He requested that patient be sent for Abodmen/Pelvis CT scan with both oral and IV contrast. He will evaluate patient following the CT scan. urine ordered patient made npo with exception of medication with sips of water will give 5 mg valium accountant controller to CT scan
[2017-04-03] MEDS ORDERED: Iohexol 300* (CONTRAST) 10 ML SDV IV ONE (17:39)
--- NOTE | 2017-04-03 18:12 | RAD ---
INDICATION: Abdominal distention COMPARISON: KUB April 03, 2017 TECHNIQUE: Axial source images were obtained from the hemidiaphragms to the symphysis pubis following administration of oral and intravenous contrast. 77 mL Omnipaque 300 was utilized. Coronal and sagittal reconstructed images were acquired. Lung bases: The lung bases are clear. Liver: The liver is normal in size. There are no masses. There is no ductal dilatation. Gallbladder: There are no calcified gallstones. There is no evidence of wall thickening or pericholecystic fluid. Spleen: The spleen is normal in size. There are no masses. Pancreas: There is no focal pancreatic mass or ductal dilatation. Adrenal glands: There is no evidence of adrenal mass. Kidneys: The kidneys are normal in size and position. There are prompt nephrograms and there is prompt excretion bilaterally. There are no renal parenchymal masses. There is no evidence of nephrolithiasis. Adenopathy: There is no evidence of adenopathy by size criteria. Fluid collections: There are no free or localized fluid collections. Vessels:There are no significant atherosclerotic changes involving the aorta. There is no focal aneurysm. The iliac vessels are normal in caliber. The IVC appears normal. GI tract: There is a large amount of retained stool in a distended colon. The small bowel is top normal in caliber. The findings are most consistent with distal colonic obstruction/fecal impaction. There is no free intraperitoneal air. Pelvic organs: The uterus and adnexa appear grossly normal Bladder: There are no bladder masses. The bladder is distended. Consider having the patient void and then assess postvoid residual. Abdominal and pelvic soft tissues: The extraperitoneal abdominal and pelvic soft tissues appear normal.. Osseous structures: There are no acute osseous findings. There is a chronic L5 spondylolysis. Other: None IMPRESSION: 1. LARGE AMOUNT RETAINED STOOL WITH SUSPECTED FECAL IMPACTION. 2. DISTENDED BLADDER (SEE ABOVE) 3. CHRONIC L5 SPONDYLOLYSIS
[2017-04-03] MEDS ORDERED: QUEtiapine TAB* 25 MG PO SCH (21:00)
[2017-04-03] MEDS: Diazepam TAB(*) 5 MG PO SCH (21:23)
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
[2017-04-04] MEDS: Acetaminophen TAB* 325 MG PO PRN (04:43)
[2017-04-04] MEDS ORDERED: Levothyroxine TAB* 25 MCG TAB PO SCH (06:00)
[2017-04-04 08:49] VITALS: BP 107/61
[2017-04-04] MEDS: Docusate CAP* 100 MG PO SCH (09:23)
[2017-04-04] MEDS: Vitamin THERAPEUTIC TAB PO SCH (09:23)
[2017-04-04] MEDS: Lithium Carbonate ER* 450 MG TAB.ER PO SCH (09:23)
--- NOTE | 2017-04-04 09:58 | PN ---
Progress Note - Progress Note Date of Service: 04/04/17 Note: F/U Surgery consult for abdominal pain CT scan reviewed Has had de leon placed for large urinary retention. Also has substantial constipation, not much success yet. No evidence of acute surgical abdomen Continue bowel regimen Please call if we can be of further assistance.
--- NOTE | 2017-04-04 10:18 | PN ---
Progress Note - Progress Note Date of Service: 04/04/17 Note: Pt likely needs manual disimpaction and aggressive bowel regimen. In terms of the urinary retention it is likely secondary to severe constipation and optimal treatment is to straight cath 4x daily. Will admit OBV to the medical floor to manage the constipation and straight cathing.
[2017-04-04] MEDS ORDERED: QUEtiapine TAB* 25 MG PO SCH (21:00)
--- NOTE | 2017-04-05 04:54 | DS ---
DISCHARGE SUMMARY: DATE OF ADMISSION: 03/30/17 DATE OF DISCHARGE: 04/04/17 DISCHARGE DIAGNOSES: [place] I: Bipolar disorder, type 1, most recent episode manic, severe with psych otic features. [place] II: Deferred. [place] III: Fecal impaction of bowel with associated urinary retent ion, questionable neuroleptic malignant syndrome. [place] IV: Severe primary support stressors. [place] V: At this time is 35. CONDITION AT THE TIME OF DISCHARGE: Guarded. The patient is in extreme discomfort. She was unable to urinate and catheterization led to expulsion of over 3 L of urine. It is thought that following t he results of an abdominal CT, which showed large amounts of stool that she has an impacted bowel, wh ich has compressed her urinary system leading to retention of urine. She is also starting to become febrile with temperatures of 101.1 degrees Fahrenheit this morning. For these reasons, we have honorio lewis rapid hospitalist consultation and the patient was evaluated by Dr. Pooja Cheema, who feels that the patient should be transferred to the medical unit for fecal disimpaction as well as routine strai ght catheterization to relieve bladder pressure. The patient does remain symptomatic from psychosis, although this has improved somewhat over this hospital course and she will likely require transfer [facility] to the behavioral science unit following medical stabilization. MENTAL STATUS EXAM AT THE TIME OF DISCHARGE: The patient continues to present with pressured and rap id speech, flight of ideas, grandiose delusions, poor hygiene, mostly incoherent and disorganized. N o evidence of auditory or visual hallucinations. Denies SI or HI. Insight and judgment are extremel y limited. DISCHARGE INSTRUCTIONS: A. Medications: She is receivin. Valium 5 mg at bedtime and 2 mg twice daily. 2. Colace 100 mg twice daily. 3. Synthroid 25 mcg p.o. daily. 4. [place] 675 mg p.o. b.i.d. We recommend holding quetiapine 175 mg nightly due to questions as to whether this caused fever. B. Diet: Regular. C. Activities: As per hospitalist service protocol. The patient is a nonsmoker. There are no labor atory or diagnostic studies pending at the time of discharge. D. Followup care: Psychiatry will continue to be involved in the patient's care and she will likely require transfer back to our unit when she is medically stabilized. E. Substance abuse followup: Nonapplicable. HOSPITAL COURSE: A. Reason for admission: The patient is a 22-year-old, single, [employer] graduate [employer] from [place] with a recent onset of bipolar yahaira with psychosis, who was briefly transferred t o Medicine due to elevated temperatures, which were thought to be either secondary to pneumonia versu s neuroleptic malignant syndrome. At any rate, she was medically cleared. CPK returned to normal an d she was transferred back to our service where she continued to be symptomatic from symptoms of bipo lar yahaira. B. Psychiatric treatment rendered: The patient was readmitted to the adult behavioral health unit a nd placed initially on continuous observations, although this was down regulated to q.15-minute check s as the patient improved somewhat. Unfortunately, she began complaining of severe constipation and d ifficulty urinating. She received Zuleta catheterization, which resulted in over 3 L of expelled urin e. The cause of urinary retention was felt to be urethral impingement secondary to impacted bowel. Along those lines, we did receive CT scan of her abdomen and pelvis on 04/03/17 following consultatio n with Dr. Jef Dhaliwal. This showed elevated amounts of stool and likely fecal impaction. The patie nt was resumed on neuroleptic therapy with low-dose Seroquel 175 mg; however, she spiked a fever of 1 01.1 degrees Fahrenheit overnight. So, we are discontinuing quetiapine at this time. The patient mitchell s been seen by Dr. Pooja Cheema, who feels that her situation warrants transfer to the hospitalist service on the 4th floor. Psychiatry will continue to follow and will likely be accepting her back to our unit once she is medically stable. [id number]/[facility] #: [id number]
[2017-04-05] MEDS ORDERED: QUEtiapine TAB* 100 MG PO SCH (21:00)
== END 2017-04-04 10:25 | disposition short-term general hospital (02) | DRG 885 ==
LOC: BSU 19:30
PROVIDERS: ADMIT Psychiatry & Neurology Psychiatry; ATTEND Psychiatry & Neurology Psychiatry
PROC: GZHZZZZ Group Psychotherapy (ICD-10-PCS; principal; 2017-04-01)
PROC: 0T9B70Z Drainage of Bladder with Drainage Device, Via Natural or Artificial Opening (ICD-10-PCS; 2017-04-04)
DX: F31.2 Bipolar disorder, current episode manic severe with psychotic features (principal); J18.9 Pneumonia, unspecified organism; G21.0 Malignant neuroleptic syndrome; K56.41 Fecal impaction; F43.10 Post-traumatic stress disorder, unspecified; F41.9 Anxiety disorder, unspecified; H92.02 Otalgia, left ear; R21 Rash and other nonspecific skin eruption; R33.8 Other retention of urine
CPT/HCPCS: 36415; 74018; 74177; 80053; 80178; 82140; 82248; 82550; 84439; 84443; 84702; 86376; 86800; 90847; 90853; 99222; 99231; 99232; 99238; A9270-GY; Q9967

== ENCOUNTER 2017-04-04 10:30 | Observation (INO) | payer OTHER ==
[2017-04-04] MEDS ORDERED: PEG 3000 GI LAVAGE* 1 GALLON PO ONE ×2 (11:16→15:47)
[2017-04-04] MEDS ORDERED: Ondansetron INJ* 2 MG/ML VIAL IV PRN (11:16)
[2017-04-04] MEDS ORDERED: NS 0.9% 1000 ML* 1,000 ML IV SCH (11:30)
[2017-04-04] MEDS ORDERED: Diazepam TAB(*) 5 MG PO PRN (11:35)
[2017-04-04] MEDS ORDERED: Acetaminophen TAB* 325 MG PO PRN (11:36)
[2017-04-04] MEDS: Diazepam TAB(*) 2 MG PO SCH ×2 (12:11→17:25)
--- NOTE | 2017-04-04 21:21 | HP ---
CC: [facility] * HISTORY AND PHYSICAL: DATE OF ADMISSION: 04/04/17 PRIMARY CARE PROVIDER: [facility]. CHIEF COMPLAINT: Severe constipation and urinary retention. HISTORY OF PRESENT ILLNESS: Ms. Boland is a 22-year-old female, who has had a complicated recent past. The patient was admitted to the BSU on 03/08/17 through 04/06/17 for psychosis. During that period to time, the patient began to have very high fevers. She was then admitted to the medical floor from 03/27 through 03/29/17 where she was diagnosed with possible neuroleptic malignant syndrome as a cause of her fever, as no clear infectious etiology was identified. The patient was discharged back to BSU on 03/29/17. The patient has remained on BSU since that time until today. Over the course of especially last few days, the patient has been complaining of severe abdominal pain and has been preoccupied with severe constipation. The psychiatrist notes indicate this patient has been perseverating about being constipated and having rectal pain. A CT scan of the abdomen and pelvis was performed yesterday, the day prior to admission, to the medical floor, which revealed a large amount of retained stool with suspected fecal impaction. Distended bladder was also identified. It was felt that the patient would be better served today being admitted to the medical floor where a manual disimpaction could be performed as well as administering GoLYTELY to facilitate cleaning of the bowels. Additionally for the urinary retention that was identified on the CT scan, the patient had a Zuleta catheter placed and was it felt it would be better to have the patient be straight cath'd 4 times daily as opposed to have a Zuleta catheter in chronically. PAST MEDICAL HISTORY: 1. Bipolar disorder with yahaira and psychotic features. 2. Anxiety/depression. MEDICATIONS: 1. Multivitamin 1 tab p.o daily. 2. [place] carbonate ER 675 mg p.o. twice daily. 4. Levothyroxine 25 mcg p.o. daily. 5. Ibuprofen 600 mg p.o. q.6 hours p.r.n. pain. 6. Colace 100 mg p.o. b.i.d. 7. Diazepam 2 mg p.o. at noon and 1700. 8. Diazepam 5 mg p.o. q.h.s. 9. Diazepam 5 mg p.o. q.4 hours p.r.n. agitation. ALLERGIES: No known drug allergies. FAMILY HISTORY: Mom is living. She is currently visiting. There is no history of psychiatric issues in the family. SOCIAL HISTORY: The patient does not smoke. She does not drink alcohol. She is a [employer] student, originally from [place]. REVIEW OF SYSTEMS: Complete 11-system review of systems is obtained. Pertinent positives and negatives are as per HPI and otherwise negative. PHYSICAL EXAMINATION GENERAL: The patient is a well-developed, young, thin female seen sitting in a recliner chair, in no acute distress. VITAL SIGNS: Blood pressure 107/61, pulse 92, respirations 16, temp 98.6, O2 sat 98% on room air. HEENT: Pupils are equal and round. Extraocular muscles are intact. Oropharynx is clear. Oral mucosa is moist. There is no submandibular, cervical , or subclavicular adenopathy. Thyroid is not enlarged. No thyroid nodules noted. PULMONARY: Lungs are clear to auscultation bilaterally. CARDIAC: Normal S1, S2. Regular rate and rhythm. I do not appreciate any murmurs. ABDOMEN: Bowel sounds are present. Abdomen is soft and nondistended. She is mildly tender to palpation within the pelvis. MUSCULOSKELETAL: There is no cyanosis or clubbing of the digits. There is full active range of motion of all 4 extremities. NEURO: Cranial nerves II through XII are grossly intact. Sensation is intact to light touch throughout. Strength is 5/5 and symmetric in both upper and lower extremities bilaterally. PSYCH: The patient is alert. She is able to carry on an appropriate conversation with me today. SKIN: Warm and dry. There are no rashes. DIAGNOSTIC STUDIES/LAB DATA: Most recent obtained on 04/02/17 reveals a sodium of 133, potassium 3.7, chloride 103, CO2 23, BUN 8, creatinine 0.7, glucose 97, calcium 9.7. Bilirubin 0.4, AST 37, ALT 69, alk phos 197, ammonia 74. CPK 41. Albumin 4.2. TSH 14.26, free T4 0.69. CT abdomen and pelvis from 04/03/17 reveals a large amount of retained stool, suspected fecal impaction. ASSESSMENT AND PLAN: Ms. Boland is a 22-year-old female who has been admitted to the BSU for bipolar disorder with yahaira and psychotic features, who is now identified to have urinary retention and severe constipation. 1. Urinary retention. I suspect the urinary retention is secondary to her severe constipation. The patient reportedly had no issues urinating prior to this hospitalization. The patient did have a Zuleta catheter placed. However, after brief discussion with Urology, the decision was made to remove the Zuleta catheter and straight cath the patient 4 times daily. With performing the straight catheterization, this allows the bladder to re-train and to be alerted when the patient is able to urinate on her own. Bladder scans will be obtained if the patient is able to urinate on her own to ensure that she is not retaining much urine. 2. Severe constipation/fecal impaction. The patient has a copious amount of stool within the colon. On exam, there was a large ball of stool in the rectal vault. This was able to be removed relatively easily. The stool was soft and brown. There was minor bleeding noted with the disimpaction. Given the degree of constipation/obstipation, I will go ahead and start GoLYTELY to help facilitate the patient clearing of the bowels. The cause of the constipation is not completely clear; however, I question if she may have become dehydrated when she was having such high fevers earlier this month. Additionally, she may not be moving around as much as she normally does and this can lead to constipation. 3. Bipolar disorder with yahaira. The patient will remain on her lithium. The patient was recently started on Seroquel. The evening prior to her readmission the medical floor today, 04/04/17, she developed fever that went up to 101.1 as T-max. I questioned if the patient may be having fever secondary to the initiation of Seroquel. This is a side effect. Additionally, Seroquel can cause NMS. At this point, after speaking with Dr. Byrne, I will stop the Seroquel and continue the patient just on lithium. 4. DVT prophylaxis. According to the Adult Thrombosis Prophylaxis Risk Factor Assessment Guide, the patient has a total risk factor score of 0, making her low risk. Ambulation will be utilized as DVT prophylaxis. 5. Code status is full. [id number]/[facility] #: [id number] MTDD
[2017-04-04] MEDS: LITHIUM CARBONATE 450 MG PO SCH (22:42)
[2017-04-04] MEDS: Diazepam TAB(*) 5 MG PO SCH (22:42)
[2017-04-05 06:05] LABS: Hematocrit 31 % (35-47); Hemoglobin 10.6 g/dl (12.0-16.0); Mean Corpuscular HGB Conc 34 g/dl (31-36); Mean Corpuscular Hemoglobin 32 pg (27-31); Mean Corpuscular Volume 94 fL (80-97); Mean Platelet Volume 7 um3 (7.4-10.4); Platelet Count 455 10^3/ul (150-450); Red Blood Count 3.31 10^6/ul (4.0-5.4); Red Cell Distribution Width 13 % (10.5-15); White Blood Count 15.9 10^3/ul (3.5-10.8)
[2017-04-05] MEDS: Levothyroxine TAB* 25 MCG TAB PO SCH (06:09)
[2017-04-05] MEDS: Potassium Chlor TAB* 20 MEQ TAB.ER PO SCH ×2 (08:58→20:26)
[2017-04-05] MEDS: Multivitamins/Minerals TAB PO SCH (08:58)
[2017-04-05] MEDS: LITHIUM CARBONATE 450 MG PO SCH ×2 (08:58→20:26)
[2017-04-05 11:36] LABS: Urine Appearance Cloudy; Urine Blood 1+ (Negative); Urine Color Yellow; Urine Ketones Negative (Negative); Urine Protein Negative (Negative); Urine Specific Gravity 1.004 (1.010-1.030); Urine Urobilinogen Negative (Negative)
[2017-04-05] MEDS: Diazepam TAB(*) 2 MG PO SCH ×2 (11:53→16:12)
[2017-04-05] MEDS: cefTRIAXone(*) 1 GM in D5W 50 ML BAG* 50 ML IVPB SCH (11:53)
--- NOTE | 2017-04-05 11:53 | RAD ---
INDICATION: Fever of unknown origin. COMPARISON: Comparison is made with a prior study from March 26, 2017. TECHNIQUE: Dual-energy PA and lateral views of the chest were obtained. FINDINGS: The heart is within normal limits in size. Mediastinal and hilar contours appear within normal limits. The lungs are underinflated and clear. No pleural effusion is seen. IMPRESSION: NO EVIDENCE FOR ACTIVE CARDIOPULMONARY DISEASE.
--- NOTE | 2017-04-05 14:37 | PN ---
Subjective Date of Service: 04/05/17 Interval History: Patient has no complaints today besides feeling intermittently hot. Patient states that she has been urinating frequently with intermittently increased residuals but refuses catheterization. Patient states that she had many formed hard stools, but then had numerous liquid stools. Patient states there was initially a small amount of kendra red blood in her stool, but that has now resolved. Patient Denies N/V, abdominal pain, CP, SOB, Weakness, Rigidity, COCHRAN, changes in vision, or other pain. Family History: Unchanged from Admission Social History: Unchanged from Admission Past Medical History: Unchanged from Admission Objective Active Medications: Acetaminophen (Tylenol Tab*) 650 mg PO Q4H PRN PRN Reason: PAIN Diazepam (Valium Tab(*)) 5 mg PO BEDTIME [facility] Last Admin: 04/04/17 22:42 Dose: 5 mg Diazepam (Valium Tab(*)) 2 mg PO BID@12,17 [facility] Last Admin: 04/05/17 11:53 Dose: 2 mg Diazepam (Valium Tab(*)) 5 mg PO Q4H PRN PRN Reason: AGITATION Lactated Ringer's (Lactated Ringers 1000 Ml Bag*) 1,000 mls @ 100 mls/hr IV PER RATE [facility] Last Admin: 04/05/17 08:58 Dose: 100 mls/hr Ceftriaxone Sodium 1 gm/ (Dextrose) 50 mls @ 200 mls/hr IVPB Q24H [facility] Last Admin: 04/05/17 11:53 Dose: 200 mls/hr Levothyroxine Sodium (Synthroid Tab*) 25 mcg PO DAILY@0600 [facility] Last Admin: 04/05/17 06:09 Dose: 25 mcg [place] Carbonate ([place] Carbonate Er Tab*) 675 mg PO BID [facility] Last Admin: 04/05/17 08:58 Dose: 675 mg Multivitamins/Minerals (Theragran/Minerals Tab*) 1 tab PO DAILY [facility] Last Admin: 04/05/17 08:58 Dose: 1 tab Ondansetron HCl (Zofran Inj*) 4 mg IV Q6H PRN PRN Reason: NAUSEA Potassium Chloride (Klor Con Er Tab*) 20 meq PO BID [facility] Stop: 04/05/17 21:01 Last Admin: 04/05/17 08:58 Dose: 20 meq Vital Signs - 8 hr 02/04/05/17 04/05/17 07:29 11:29 11:53 Temperature 100.3 F 98.6 F Pulse Rate 80 78 Respiratory 24 20 16 Rate Blood Pressure 97/53 95/56 (mmHg) O2 Sat by Pulse 97 96 Oximetry 04/05/17 14:24 Temperature Pulse Rate Respiratory 18 Rate Blood Pressure (mmHg) O2 Sat by Pulse Oximetry Oxygen Devices in Use Now: None Appearance: Patient is a 22yo female who appears stated age and is sitting in the bed in NAD. Eyes: No Scleral Icterus, PERRLA Ears/Nose/Mouth/Throat: NL Teeth, Lips, Gums, Clear Oropharnyx, Mucous Membranes Moist Neck: NL Appearance and Movements; NL JVP, Trachea Midline Respiratory: Symmetrical Chest Expansion and Respiratory Effort, Clear to Auscultation Cardiovascular: NL Sounds; No Murmurs; No JVD, RRR, No Edema Abdominal: NL Sounds; No Tenderness; No Distention, No Hepatosplenomegaly Lymphatic: No Cervical Adenopathy Extremities: No Edema, No Clubbing, Cyanosis Skin: No Rash or Ulcers, No Nodules or Sclerosis Neurological: Alert and Oriented x 3, NL Sensation, NL Muscle Strength and Tone , - - CNII-XII intact. Result Diagrams: 04/05/17 05:52 04/05/17 05:52 Assess/Plan/Problems-Billing Assessment: Patient is a 22yo female with a PMH significant for BPD I and recent history of NMS who was admitted from BSU for fecal impaction and urinary retention. Patient has had numerous bowel movements but is still retaining urine intermittently and is refusing catheterization. Patient also had elevated temperatures and grossly positive UA. - Patient Problems (1) Urinary retention Current Visit: Yes Status: Acute Code(s): R33.9 - RETENTION OF URINE, UNSPECIFIED SNOMED Code(s): 825813817 Comment: Intermittent residuals over 200ml. Patient is denying straight cath for bladder retraining. Possibly contributing to or being exacerbated by UTI. Continue post void bladder scans and straight catheterization for bladder retraining. (2) Fecal impaction Current Visit: Yes Status: Acute Code(s): K56.41 - FECAL IMPACTION SNOMED Code(s): 74141043 Comment: Resolved with [employer] Enema and GoLytely. Slight BRBPR from disimpaction resolved. (3) Fever Current Visit: No Status: Acute Code(s): R50.9 - FEVER, UNSPECIFIED SNOMED Code(s): 074112838 Comment: Elevated temperature of unknown origin. Possibly related to Seroquel which was stopped. UA grossly positive, CXR negative. BC pending. Met SIRS criteria. Started on Ceftriaxone for UTI and empiric broad spectrum coverage. (4) Bipolar 1 disorder Current Visit: Yes Status: Acute Code(s): F31.9 - BIPOLAR DISORDER, UNSPECIFIED SNOMED Code(s): 423835781 Comment: Continue lithium. Euthymic. Stop Seroquel due to fever and history of NMS. (5) Urinary tract infection Current Visit: Yes Status: Acute Comment: Grossly postive UA in setting of retention. Ceftriaxone started. (6) Full code status Current Visit: Yes Status: Acute Code(s): Z78.9 - OTHER SPECIFIED HEALTH STATUS SNOMED Code(s): 421111280 (7) DVT prophylaxis Current Visit: No Status: Acute Code(s): WGX4053 - SNOMED Code(s): 282141567 Comment: ambulation, low risk Status and Disposition: Patient is admitted inpatient. Return to BSU when medically stable.
[2017-04-05] MEDS ORDERED: NS 0.9% 1000 ML* 1,000 ML IV ONE (17:30)
[2017-04-05] MEDS: Diazepam TAB(*) 5 MG PO SCH (20:25)
[2017-04-06 05:50] LABS: ABS Basophils 0.1 10^3/ul (0-0.2); ABS Eosinophils 1.4 10^3/ul (0-0.6); ABS Lymphocytes 2.1 10^3/ul (1.0-4.8); ABS Monocytes 1.1 10^3/ul (0-0.8); ABS Neutrophils 8.6 10^3/ul (1.5-7.7); ABS Nucleated RBC 0 10^3/ul; Eosinophil % 10.7 % (0-6); Hematocrit 30 % (35-47); Lymphocyte % 16.1 % (25-47); Mean Corpuscular HGB Conc 34 g/dl (31-36); Mean Corpuscular Hemoglobin 32 pg (27-31); Mean Corpuscular Volume 95 fL (80-97); Mean Platelet Volume 7 um3 (7.4-10.4); Nucleated Red Blood Cells % 0; Platelet Count 407 10^3/ul (150-450); Red Blood Count 3.12 10^6/ul (4.0-5.4); Red Cell Distribution Width 13 % (10.5-15); White Blood Count 13.2 10^3/ul (3.5-10.8)
[2017-04-06] MEDS: Levothyroxine TAB* 25 MCG TAB PO SCH (05:56)
[2017-04-06 06:07] LABS: EGFR Non-African American 128.8 (>60)
[2017-04-06] MEDS: Docusate CAP* 100 MG PO SCH (10:26)
[2017-04-06] MEDS: LITHIUM CARBONATE 450 MG PO SCH ×2 (10:27→20:37)
[2017-04-06] MEDS: Multivitamins/Minerals TAB PO SCH (10:28)
[2017-04-06] MEDS: cefTRIAXone(*) 1 GM in D5W 50 ML BAG* 50 ML IVPB SCH (10:28)
[2017-04-06] MEDS ORDERED: Polyethylene Glycol 3350* 17 GM PACKET PO PRN (11:06)
[2017-04-06] MEDS: Diazepam TAB(*) 2 MG PO SCH ×2 (12:39→17:39)
--- NOTE | 2017-04-06 17:24 | PN ---
Subjective Date of Service: 04/06/17 Interval History: Patient had a BM this morning which was formed and had no blood or black material. Patient denies pain. Patient states had one episode of pain with urination earlier today but denies other dysuria, hematuria or pyuria. Patient denies F/C, N/V, abdominal pain, CP, SOB, COCHRAN, changes in vision, grandiose thoughts, SI/HI. Patient is euthymic in all interactions. Family History: Unchanged from Admission Social History: Unchanged from Admission Past Medical History: Unchanged from Admission Objective Active Medications: Acetaminophen (Tylenol Tab*) 650 mg PO Q4H PRN PRN Reason: PAIN Diazepam (Valium Tab(*)) 5 mg PO BEDTIME [facility] Last Admin: 04/05/17 20:25 Dose: 5 mg Diazepam (Valium Tab(*)) 2 mg PO BID@12,17 [facility] Last Admin: 04/06/17 12:39 Dose: 2 mg Diazepam (Valium Tab(*)) 5 mg PO Q4H PRN PRN Reason: AGITATION Docusate Sodium (Colace Cap*) 200 mg PO DAILY [facility] Last Admin: 04/06/17 10:26 Dose: 200 mg Ceftriaxone Sodium 1 gm/ (Dextrose) 50 mls @ 200 mls/hr IVPB Q24H [facility] Last Admin: 04/06/17 10:28 Dose: 200 mls/hr Levothyroxine Sodium (Synthroid Tab*) 25 mcg PO DAILY@0600 [facility] Last Admin: 04/06/17 05:56 Dose: 25 mcg Murphys Carbonate (Murphys Carbonate Er Tab*) 675 mg PO BID [facility] Last Admin: 04/06/17 10:27 Dose: 675 mg Multivitamins/Minerals (Theragran/Minerals Tab*) 1 tab PO DAILY [facility] Last Admin: 04/06/17 10:28 Dose: 1 tab Ondansetron HCl (Zofran Inj*) 4 mg IV Q6H PRN PRN Reason: NAUSEA Polyethylene Glycol/Electrolytes (Miralax*) 17 gm PO DAILY PRN PRN Reason: CONSTIPATION Vital Signs - 8 hr 04/06/17 04/06/17 04/06/17 10:49 12:39 15:15 Temperature 98.2 F Pulse Rate 82 Respiratory 16 14 14 Rate Blood Pressure 96/60 (mmHg) O2 Sat by Pulse 99 Oximetry 04/06/17 15:46 Temperature 98.0 F Pulse Rate 70 Respiratory 20 Rate Blood Pressure 95/56 (mmHg) O2 Sat by Pulse 99 Oximetry Oxygen Devices in Use Now: None Appearance: Patient is a 22yo female who appears stated age and is sitting in the bed in NAD. Eyes: No Scleral Icterus, PERRLA Ears/Nose/Mouth/Throat: NL Teeth, Lips, Gums, Clear Oropharnyx, Mucous Membranes Moist Neck: NL Appearance and Movements; NL JVP, Trachea Midline Respiratory: Symmetrical Chest Expansion and Respiratory Effort, Clear to Auscultation Cardiovascular: NL Sounds; No Murmurs; No JVD, RRR, No Edema Abdominal: NL Sounds; No Tenderness; No Distention, No Hepatosplenomegaly Lymphatic: No Cervical Adenopathy Extremities: No Edema, No Clubbing, Cyanosis Skin: No Rash or Ulcers, No Nodules or Sclerosis Neurological: Alert and Oriented x 3, NL Sensation, NL Muscle Strength and Tone Result Diagrams: 04/06/17 05:32 04/06/17 05:32 Microbiology and Other Data: Microbiology 04/05/17 10:17 Aerobic Blood Culture - Preliminary Blood Venous No Growth Day 1 Anaerobic Blood Culture - Preliminary No Growth Day 1 04/05/17 11:23 Urine Culture - Preliminary Urine Escherichia Coli Assess/Plan/Problems-Billing Assessment: Patient is a 22yo female with a PMH significant for BPD I and recent history of NMS who was admitted from [facility] for fecal impaction and urinary retention. Patient has had numerous bowel movements and is now voiding spontaneously without residual. Patient also had elevated temperatures and grossly positive UA and is improving on ceftriaxone. - Patient Problems (1) Urinary retention Current Visit: Yes Status: Acute Code(s): R33.9 - RETENTION OF URINE, UNSPECIFIED SNOMED Code(s): 407977274 Comment: All residuals since this morning below 100cc. Possibly contributing to or being exacerbated by UTI. Continue post void bladder scans. (2) Fecal impaction Current Visit: Yes Status: Acute Code(s): K56.41 - FECAL IMPACTION SNOMED Code(s): 19796930 Comment: Resolved with [employer] Enema and GoLytely. Slight BRBPR from disimpaction resolved. Had spontaneous formed BM today without blood. Colace daily scheduled and Miralax and Senna PRN. (3) Fever Current Visit: No Status: Acute Code(s): R50.9 - FEVER, UNSPECIFIED SNOMED Code(s): 120206196 Comment: Possibly related to Seroquel which was stopped. UA grossly positive, CXR negative. BC pending. Met SIRS criteria. Started on Ceftriaxone for UTI and empiric broad spectrum coverage. Likely due to UTI. (4) Bipolar 1 disorder Current Visit: Yes Status: Acute Code(s): F31.9 - BIPOLAR DISORDER, UNSPECIFIED SNOMED Code(s): 245531939 Comment: Continue lithium. Euthymic. Stop Seroquel due to fever and history of NMS. (5) Urinary tract infection Current Visit: Yes Status: Acute Comment: Grossly postive UA in setting of retention. Ceftriaxone started. Culture shows > 100K E. Coli. Sensativities pending. (6) Full code status Current Visit: Yes Status: Acute Code(s): Z78.9 - OTHER SPECIFIED HEALTH STATUS SNOMED Code(s): 841130355 (7) DVT prophylaxis Current Visit: No Status: Acute Code(s): CEG3911 - SNOMED Code(s): 490402230 Comment: ambulation, low risk Status and Disposition: Patient is admitted inpatient. Return to [facility] in morning if no complications overnight.
[2017-04-06] MEDS: Diazepam TAB(*) 5 MG PO SCH (20:38)
[2017-04-07] MEDS: Levothyroxine TAB* 25 MCG TAB PO SCH (06:01)
[2017-04-07 06:54] LABS: ABS Basophils 0.1 10^3/ul (0-0.2); ABS Eosinophils 1.9 10^3/ul (0-0.6); ABS Monocytes 0.9 10^3/ul (0-0.8); ABS Neutrophils 5.5 10^3/ul (1.5-7.7); ABS Nucleated RBC 0 10^3/ul; Eosinophil % 18.2 % (0-6); Hematocrit 33 % (35-47); Hemoglobin 11.1 g/dl (12.0-16.0); Mean Corpuscular HGB Conc 34 g/dl (31-36); Mean Corpuscular Hemoglobin 32 pg (27-31); Mean Corpuscular Volume 95 fL (80-97); Mean Platelet Volume 8 um3 (7.4-10.4); Nucleated Red Blood Cells % 0.1; Platelet Count 460 10^3/ul (150-450); Red Cell Distribution Width 13 % (10.5-15); White Blood Count 10.3 10^3/ul (3.5-10.8)
[2017-04-07 07:09] LABS: EGFR Non-African American 121.5 (>60)
[2017-04-07 07:26] VITALS: BP 96/58
[2017-04-07] MEDS: LITHIUM CARBONATE 450 MG PO SCH (09:12)
[2017-04-07] MEDS: Multivitamins/Minerals TAB PO SCH (09:12)
[2017-04-07] MEDS: Docusate CAP* 100 MG PO SCH (09:12)
[2017-04-07] MEDS: cefTRIAXone(*) 1 GM in D5W 50 ML BAG* 50 ML IVPB SCH (09:48)
[2017-04-07] MEDS: Diazepam TAB(*) 2 MG PO SCH (13:02)
[2017-04-07] MEDS ORDERED: Acetaminophen TAB* 325 MG PO PRN (13:57)
[2017-04-07] MEDS ORDERED: Polyethylene Glycol 3350* 17 GM PACKET PO PRN (14:04)
[2017-04-07] MEDS ORDERED: Diazepam TAB(*) 2 MG PO PRN (14:10)
[2017-04-07] MEDS ORDERED: ceFUROXime TAB(*) 250 MG PO SCH (21:00)
[2017-04-07] MEDS ORDERED: Lithium Carbonate ER* 450 MG TAB.ER PO SCH (21:00)
[2017-04-08] MEDS ORDERED: Levothyroxine TAB* 25 MCG TAB PO SCH (06:00)
[2017-04-08] MEDS ORDERED: Docusate CAP* 100 MG PO SCH (09:00)
[2017-04-08] MEDS ORDERED: Vitamin THERAPEUTIC TAB PO SCH (09:00)
[2017-04-08] MEDS ORDERED: Senna TAB PO SCH (09:00)
--- NOTE | 2017-04-09 13:07 | DS ---
CC: [facility] * DISCHARGE SUMMARY: DATE OF ADMISSION: 04/04/17 DATE OF DISCHARGE: 04/07/17 PRIMARY CARE PROVIDER: [facility]. MY ATTENDING WHILE IN THE HOSPITAL: Dr. Jackson Monique.* (DICTATED BY JJ APONTE) PRIMARY DISCHARGE DIAGNOSES: Fecal impaction and urinary retention. SECONDARY DISCHARGE DIAGNOSES: 1. Bipolar disorder with yahaira and psychotic features. 2. Anxiety and depression. 3. Possible neuroleptic malignant syndrome. STUDIES DONE WHILE IN THE HOSPITAL: Chest x-ray from 04/05/17 read as no evidence for acute cardiopulmonary disease. MEDICATIONS AT DISCHARGE: 1. Diazepam 2 mg p.o. b.i.d. at 1200 and 1700. 2. Diazepam 5 mg p.o. at bedtime. 3. Diazepam 5 mg p.o. q.4 hours as needed for anxiety. 4. Docusate 200 mg p.o. daily. 5. Senna 1 tab p.o. every 3 days as needed. 6. MiraLAX 17 g p.o. daily as needed. 7. Multivitamin 1 tab p.o. daily. 8. Docusate 200 mg p.o. daily. 9. Tylenol 600 mg p.o. q.4 hours as needed. 10. [place] carbonate 675 mg p.o. b.i.d. 11. Levothyroxine 25 mcg p.o. daily. 12. Ibuprofen 600 mg p.o. q.6 hours as needed. 13. Cefuroxime 250 mg p.o. b.i.d. x14. New medications at discharge: 1. Tylenol. 2. Docusate. 3. Polyethylene. 4. MiraLAX. 5. Senna. 6. Cefuroxime. Medications discontinued at discharge: None. HOSPITAL COURSE: This is a brief summary of the patient's presentation. For more details, please see the history and physical from Dr. Pooja Cheema from 04/04/17. In brief, the patient is a 22-year-old female with past medical history significant for the above. The patient was admitted to the hospital as a transfer from the behavioral services unit at [facility] for fecal impaction with severe abdominal pain over the course of several days. The patient was previously admitted to the medical floor from 03/27/17 to 03/29/17 with possible neuroleptic malignant syndrome and fever. The patient previously was admitted to behavioral service unit from 03/16/17 to 03/27/17 for psychosis related to bipolar disorder. The patient had a CT scan of her abdomen, which showed fecal impaction and urinary distention. The patient had a Zuleta catheter inserted. The patient was admitted to the medical floor and manual disimpaction, which was performed with minor bleeding. The patient had 2 L of GoLYTELY as well. It was believed the patient was constipated due to dehydration, due to fevers, possibly on lithium. The patient had a fever of 101 on 04/04/17. The patient was recently started on Seroquel. It was decided to stop the Seroquel and continue the patient just on lithium while she was on the medical floor for her bipolar disorder as well as the diazepam. The patient improved over the course of next day. The patient was identified to have a white blood cell count of 15.9, hemoglobin of 10.6, potassium of 3.1, glucose of 171, calcium 8.2, phosphorus of 1.8, and magnesium was 2.3. The patient was also given a coca-cola enema. The patient had a urinalysis due to SIRS criteria, which showed leukocyte esterase +2 with urine bacteria present, squamous epithelial cells, specific gravity of 0.04. The patient was started on ceftriaxone. Chest x-ray was negative. Blood cultures were drawn, which were negative while she was in the hospital. The patient remained euthymic, was able to urinate initially, but with residual, the patient refused straight catheterization as recommended by Urology as long as she was urinating. The patient was usually able to empty her bladder on the second try. The patient had no dysuria except for 1 episode patient had some rectal pain, which resolved after the first day while she was on the medical floor. The patient had 2 spontaneous bowel movements only on Docusate after 1 day of having no bowel movements after her manual disimpaction. The patient had fevers initially on 04/04/17 up to 100.5 and then 100.3 on 04/05/17 in the morning. The patient then had no fevers after being started on ceftriaxone. The patient was medically stable on to 04/07/17 to go back down to the behavioral services unit 14 more doses of Ceftin for her urinary traction infection, which was resistant to ampicillin, tetracycline, and Bactrim, but have to pull everything else. This was discussed with the psychiatrist and he was in agreement to read. PHYSICAL EXAM ON THE DAY OF DISCHARGE: General: The patient is a 22-year-old female, who appears stated age, and sitting comfortably in bed, in no acute distress. Vital signs at the time of discharge: Temperature 98.0, pulse rate 68, respiratory rate 18, oxygen saturation 100% on room air, blood pressure 96/ 58. HEENT: Head: Normocephalic, atraumatic. Sclerae anicteric. No conjunctival injection. Nasal mucosa is moist. Oral mucosa is moist. No pharyngeal erythema, discharge, or exudates. Neck: Supple, nontender. No lymphadenopathy. No carotic bruit auscultated. Cardiac: Regular rate and rhythm. No clicks, murmurs, gallops, or rubs. Pulses 2+ in the bilateral dorsalis pedis, posterior tibialis, and radial areas. No bilateral lower extremity edema noted. Respiratory: Clear to auscultation bilaterally. No wheezes, rales, or rhonchi. Good air exchange bilaterally. Abdomen: Soft, nontender, nondistended. Bowel sounds present, normoactive in all 4 quadrants. No hepatosplenomegaly or abdominal bruits auscultated. Genitourinary: No suprapubic tenderness or CVA tenderness. No bladder distention. Skin: Clean, dry, and intact. No rash. Neuro: Cranial nerves II through XII intact. No focal deficits. Psychiatric: Pleasant, cooperative, euthymic. No signs of yahaira or psychosis. LABORATORY DATA ON DAY OF DISCHARGE: White blood cell count 10.3, hemoglobin 11.1, platelet count 460. Sodium 136, potassium 3.7, chloride 106, carbon dioxide 27, anion gap 3, BUN 6, creatinine 0.61, glucose 95, calcium 9.1. DISCHARGE PLAN: The patient will be discharged back to the behavioral services unit for the continuation of her psychiatric care. The patient was euthymic while on the medical floor. The patient should continue for 1 week of Ceftin. The patient should have a bowel regimen as described above with Colace 200 mg p.o. daily, then MiraLAX as needed for no bowel movements over the course of 3 days, and senna to be given every 3 days also for no bowel movements over the course of 3 days. The patient should return to medical floor for urinary retention, high fevers, unresponsive to medication, altered mental status, no bowel movement for greater than a week or other alarming symptoms. The patient should follow up at [facility] within 1 week after her discharge from behavioral services unit. TIME SPENT: Approximately 60 minutes was spent on this discharge, 30 of which was spent [id number] with the patient obtaining history and physical and discussing treatment plan. JJ APONTE [id number]/[facility] #: [id number] VERO
== END 2017-04-07 17:25 | DRG 388 ==
LOC: INTOOBSV 11:16 → MED 11:16 → OBSVTOIN 11:16 → MED 13:48 → OBSVTOIN 04-05 13:48 → INTOOBSV 04-05 13:48
PROVIDERS: ADMIT Hospitalist; ATTEND Hospitalist
DX: K56.41 Fecal impaction (principal); R33.9 Retention of urine, unspecified; F31.2 Bipolar disorder, current episode manic severe with psychotic features; F41.9 Anxiety disorder, unspecified; F32.9 Major depressive disorder, single episode, unspecified; Z79.899 Other long term (current) drug therapy
CPT/HCPCS: 36415; 71046; 80048; 81003; 81015; 83735; 84100; 85025; 85027; 87040; 87077; 87086; 87186; 96374; A9270-GY; G0378; J0696

== ENCOUNTER 2017-04-07 13:56 | Inpatient (IN) | payer OTHER ==
[2017-04-07] MEDS ORDERED: Al Hydrox/Mg Hydrox/Simet LIQ* 30 ML UDC PO PRN (15:19)
[2017-04-07] MEDS ORDERED: Acetaminophen TAB* 325 MG PO PRN (15:19)
[2017-04-07] MEDS ORDERED: Diazepam TAB(*) 2 MG PO PRN (15:24)
[2017-04-07] MEDS ORDERED: Docusate CAP* 100 MG PO PRN (15:25)
[2017-04-07] MEDS ORDERED: Polyethylene Glycol 3350* 17 GM PACKET PO PRN (15:28)
[2017-04-07] MEDS: ceFUROXime TAB(*) 250 MG PO SCH (20:31)
[2017-04-07] MEDS: Lithium Carbonate ER* 450 MG TAB.ER PO SCH (20:31)
[2017-04-08] MEDS ORDERED: Senna TAB PO SCH (09:00)
[2017-04-08] MEDS: Lithium Carbonate ER* 450 MG TAB.ER PO SCH ×2 (09:27→21:43)
[2017-04-08] MEDS: Levothyroxine TAB* 25 MCG TAB PO SCH (09:28)
[2017-04-08] MEDS: Vitamin THERAPEUTIC TAB PO SCH (09:28)
[2017-04-08] MEDS: ceFUROXime TAB(*) 250 MG PO SCH ×2 (09:28→21:42)
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
[2017-04-09] MEDS: Vitamin THERAPEUTIC TAB PO SCH (08:28)
[2017-04-09] MEDS: Lithium Carbonate ER* 450 MG TAB.ER PO SCH ×2 (08:49→21:04)
[2017-04-09] MEDS: ceFUROXime TAB(*) 250 MG PO SCH ×2 (08:49→21:06)
[2017-04-09] MEDS: Levothyroxine TAB* 25 MCG TAB PO SCH (10:04)
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
--- NOTE | 2017-04-09 14:07 | PN ---
[facility]: Group Therapy Note - Service Type Service Type: [id number] Group Psychotherapy - Cognitive Behavioral Group Therapy ( CBT):Patient was attentive and participatory in CBT programming this morning, and remained in good behavioral control. Patient expressed positive insights regarding relevant treatment interventions and goals.
[2017-04-10 08:05] VITALS: BP 105/62
[2017-04-10] MEDS: ceFUROXime TAB(*) 250 MG PO SCH (08:59)
[2017-04-10] MEDS: Lithium Carbonate ER* 450 MG TAB.ER PO SCH (08:59)
[2017-04-10] MEDS: Levothyroxine TAB* 25 MCG TAB PO SCH (09:00)
[2017-04-10] MEDS: Vitamin THERAPEUTIC TAB PO SCH (09:00)
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
== END 2017-04-10 11:50 | disposition home or self-care (01) | DRG 885 ==
LOC: BSU 17:45
PROVIDERS: ADMIT Psychiatry & Neurology Psychiatry; ATTEND Psychiatry & Neurology Psychiatry
PROC: GZHZZZZ Group Psychotherapy (ICD-10-PCS; principal; 2017-04-09)
DX: F31.2 Bipolar disorder, current episode manic severe with psychotic features (principal); Z91.14 Patient's other noncompliance with medication regimen; F43.10 Post-traumatic stress disorder, unspecified; N39.0 Urinary tract infection, site not specified; Z81.8 Family history of other mental and behavioral disorders; B96.20 Unspecified Escherichia coli [E. coli] as the cause of diseases classified elsewhere
CPT/HCPCS: 87086; 90853; 99222; 99232; 99238; A9270-GY